=== PATIENT | female | born 1955 | race Caucasian/White ===

== ENCOUNTER → 2019-12-26 09:30 | Outpatient (CLI) | payer BC, SELFPAY ==
--- NOTE | ~2019-12-26 | CT_ITS ---
EXAMINATION: CT lung screening EXAM DATE: 12/26/2019 09:47 INDICATION: Personal history of nicotine dependence. TECHNIQUE: Spiral low dose CT of the chest without contrast. Axial, coronal and sagittal images were reviewed. The dose-length product (DLP) for this examination was 88.45 mGy-cm. The exposure was ta ilored according to patient size (auto mA exposure control), and iterative reconstruction (ASIR) was used as additional dose reduction technique. There is no prior study for comparison. FINDINGS: Several right middle lobe nodules up to 4 mm. There is biapical scarring. There is mild em physema and moderate hyperinflation. Tracheobronchial tree is patent. There is no mediastinal, hil ar or axillary lymphadenopathy. There are no pleural or pericardial effusions. There is no pneumo thorax. Heart normal in size. No evidence of coronary arterial calcification. Upper abdomen is un remarkable. There is mild thoracic spondylosis without osteoblastic or osteolytic lesions identifie d. IMPRESSION: Lung-RADS category 2, benign appearance or behavior (<1% chance of malignancy); recommend continued LDCT screening in 1 year. Reviewed, dictated and finalized at location B. IO PRODUCER
== END ==
PROVIDERS: PCP Emergency Medicine; Visit Provider Emergency Medicine
DX: Z12.2 Encounter for screening for malignant neoplasm of respiratory organs (principal); Z87.891 Personal history of nicotine dependence
CPT/HCPCS: G0297

== ENCOUNTER → 2020-10-19 10:22 | Outpatient (CLI) | payer BC, SELFPAY ==
--- NOTE | ~2020-10-19 | MM_ITS ---
EXAMINATION: MM screening lucas BI w sharon HISTORY: Screening mammogram TECHNIQUE: Craniocaudal and mediolateral oblique 3-D tomosynthesis images were obtained and synthetic 2-D images were generated. CAD analysis was submitted and interpreted. COMPARISON: 10/17/2019, 10/04/2018, 07/13/2017 bilateral digital screening mammogram examinations BREAST PARENCHYMAL COMPOSITION: The breasts are heterogeneously dense, which may obscure small masses . FINDINGS: There is a biopsy marker on the right; history of prior benign right breast biopsy. Status post left partial mastectomy and radiation treatment for breast cancer in 2012. There is stabl e postoperative scarring and retraction of the left breast. There is no evidence of interval suspicious mass, calcification, or new architectural distortion to s uggest malignancy in either breast. There has been no suspicious interval change. IMPRESSION: 1. No mammographic evidence of malignancy. 2. Recommend routine screening mammography in one year. BI-RADS Category 2: Benign finding(s). Reviewed, dictated and finalized at location A. ANALYST
== END ==
PROVIDERS: PCP Emergency Medicine; Visit Provider Obstetrics & Gynecology
DX: Z12.31 Encounter for screening mammogram for malignant neoplasm of breast (principal)
CPT/HCPCS: 77063; 77067

== ENCOUNTER → 2020-12-21 10:48 | Outpatient (CLI) | payer BC, SELFPAY ==
--- NOTE | ~2020-12-21 | CT_ITS ---
EXAMINATION:CT lung screening DATE: 12/21/2020 11:09 INDICATION: Personal history of tobacco dependence. Smoker who quit 11 years ago with 30 pack year hi story. TECHNIQUE: Computed tomography (CT) of the chest was performed without intravenous contrast. Automate d exposure control and iterative reconstruction technique were employed. The dose-length product (DLP ) was 73.72 mGy-cm. COMPARISON: Chest CT 12/26/2019 FINDINGS: There is mild scarring at the lung apices. There is a 3 mm nodule in left lower lobe. There is a 4 mm nodule in right upper lobe without change. There is a 4 mm nodule in right middle lobe wit hout change. No pleural effusion. The heart size is normal. No pericardial effusion. There is severe thoracic spondylosis. IMPRESSION: 1. Lung-RADS category 2: Benign appearance or behavior. Continue annual screening with noncontrast lo w-dose chest CT in 12 months. Reviewed, dictated and finalized at location A. BURNER IMPRESSION: 1. Lung-RADS category 2: Benign appearance or behavior. Continue annual screeni ng with noncontrast low-dose chest CT in 12 months.
== END ==
PROVIDERS: PCP Emergency Medicine; Visit Provider Emergency Medicine
DX: Z12.2 Encounter for screening for malignant neoplasm of respiratory organs (principal); Z87.891 Personal history of nicotine dependence
CPT/HCPCS: 71271

== ENCOUNTER 2021-01-03 08:44 | Outpatient (CLI) | payer BC, SELFPAY | END 2021-01-03 08:45 | disposition home or self-care (01) | LOC: ANHCOVIDVC 08:44 | PROVIDERS: PCP Emergency Medicine | DX: Z23 Encounter for immunization (principal) | CPT/HCPCS: 0001A; 91300 ==

== ENCOUNTER 2021-01-07 12:57 | Outpatient (CLI) | payer BC, SELFPAY | END 2021-01-07 12:58 | disposition home or self-care (01) | PROVIDERS: PCP Emergency Medicine; Visit Provider Emergency Medicine | DX: R30.0 Dysuria (principal) | CPT/HCPCS: 87077; 87086; 87088 ==

== ENCOUNTER 2021-01-24 08:46 | Outpatient (CLI) | payer BC, SELFPAY | END 2021-01-24 08:47 | disposition home or self-care (01) | LOC: ANHCOVIDVC 08:46 | PROVIDERS: PCP Emergency Medicine | DX: Z23 Encounter for immunization (principal) | CPT/HCPCS: 0002A; 91300 ==

== ENCOUNTER 2021-03-23 08:43 | Outpatient (CLI) | payer BC, SELFPAY ==
--- NOTE | ~2021-03-23 | XR_ITS ---
EXAMINATION: XR barium swallow modified DATE: 03/23/2021 09:29 INDICATION: Dysphagia, proximal throat tightness TECHNIQUE: Modified barium esophagram was performed by myself to administered fluoroscopy, in conjun ction with speech pathologist who administered barium in varying consistencies as per speech patholog ist documentation. This was recorded on tape. A single fluoroscopic spot image was recorded. The DAP for this procedure was 1.4 Gycm2. Fluoroscopy exposure time was 2.1 minutes. FINDINGS: Oral stage: Adequate function. Pharyngeal phase: Adequate function. Laryngeal penetration: Present. Aspiration: None. Laryngeal sensitivity: Present. IMPRESSION: Mild laryngeal penetration without aspiration observed. Please refer to speech pathologis t findings and specific feeding recommendations. Reviewed, dictated and finalized at location A. IMPRESSION: Mild laryngeal penetration without aspiration observed. Please refe r to speech pathologist findings and specific feeding recommendations.
--- NOTE | 2021-03-23 09:41 | STOPEVAL ---
MODIFIED BARIUM SWALLOW EVALUATION: Thank you for referring Araseli Correa to [facility].? Attending Provider: Roman Dempsey MD Outpatient Past Medical History Past Medical History Source of Past Medical History Patient Neurological History Hx Neurological Disorders No Significant History Cardiovascular History Hx Cardiac Disorders No Significant History Respiratory History Hx Respiratory Disorders No Significant History Gastrointestinal History Hx Gastrointestinal Disorders No Significant History Genitourinary History Hx Genitourinary Disorders No Significant History Musculoskeletal History Hx Musculoskeletal Disorders No Significant History Hematological History Hx Hematological Disorders No Significant History Endocrine History Hx Endocrine Disorders No Significant History HEENT History Hx HEENT Disorders No Significant History Integumentary History Hx Skin Disorders No Significant History Other History Hx Cancer Yes: breast Prior Level of Function Prior Swallow Level Prior Intake Method Oral Prior Diet Regular (Level 7 Diet) Prior Liquid Consistency Thin (Level 0 Diet) Modified Barium Swallow Evaluation Recent Swallowing History Reports Dysphagia Yes: throat feels restricted during swallowing Onset of Dysphagia few months ago History of Dysphagia No Other Factors Impacting Dysphagia None History of Pneumonia No Reported Difficult Consistencies Unable to Identify Intake Method Prior to Swallow Oral Evaluation Diet Prior to Swallow Evaluation Regular, Level 7 Liquid Consistency Prior to Swallow Thin (0) Evaluation Consistency Solid Consistency Method of Presentation Spoon Oral Preparatory Symptoms None Oral Phase Symptoms None Pharyngeal Phase Symptoms None Severity of Vallecular Residue None - 0% No Residue Severity of Pyriform Sinus Residue None - 0% No Residue 8 Point Laryngeal Penetration-Aspiration Material Does Not Enter Airway Scale Cervical/Esophageal Symptoms None Mixed Consistency Method of Presentation Spoon Oral Preparatory Symptoms None Oral Phase Symptoms None Pharyngeal Phase Symptoms None Severity of Vallecular Residue None - 0% No Residue Severity of Pyriform Sinus Residue None - 0% No Residue 8 Point Laryngeal Penetration-Aspiration Material Does Not Enter Airway Scale Cervical/Esophageal Symptoms None Pureed Consistency Method of Presentation Spoon Oral Preparatory Symptoms None Oral Phase Symptoms None Pharyngeal Phase Symptoms None Severity of Vallecular Residue None - 0% No Residue Severity of Pyriform Sinus Residue None - 0% No Residue 8 Point Laryn
== END 2021-03-23 08:44 | disposition home or self-care (01) ==
PROVIDERS: PCP Emergency Medicine; Visit Provider Emergency Medicine
DX: R13.10 Dysphagia, unspecified (principal)
CPT/HCPCS: 92611

== ENCOUNTER → 2021-03-24 10:46 | Outpatient (CLI) | payer BC, SELFPAY ==
--- NOTE | ~2021-03-24 | US_ITS ---
EXAMINATION: US thyroid DATE: 03/24/2021 11:01 INDICATION: Nontoxic goiter. TECHNIQUE: Multiple ultrasound images of the thyroid were obtained. COMPARISON: None. FINDINGS: The right thyroid lobe measures 5.1 x 2.0 x 1.7 cm. The left thyroid lobe measures 5.2 x 1.6 x 1.8 c m. No discrete nodules identified. There is normal echotexture and echogenicity throughout the thyro id gland with diffuse increased vascular flow throughout the thyroid on color Doppler. IMPRESSION: 1. Nonspecific diffuse increased vascular flow throughout the otherwise normal-appearing thyroid with no discrete thyroid nodules. Correlate clinically for thyroiditis Reviewed, dictated and finalized at location A. IMPRESSION: 1. Nonspecific diffuse increased vascular flow throughout the otherwise normal- appearing thyroid with no discrete thyroid nodules. Correlate clinically for th yroiditis
== END ==
PROVIDERS: PCP Emergency Medicine; Visit Provider Emergency Medicine
DX: E04.9 Nontoxic goiter, unspecified (principal)
CPT/HCPCS: 76536

== ENCOUNTER 2021-05-19 10:33 | Outpatient (CLI) | payer BC, SELFPAY ==
[2021-05-19 11:49] LABS: Free T4 Free Thyroxine 1.06 ng/mL (0.78-2.19)
[2021-05-19 11:56] LABS: Total Triiodothyronine (T3) 0.96 NG/ML (0.97-1.69)
[2021-05-22 04:15] LABS: Thyroid Peroxidase Antibodies <1 IU/mL (<9)
[2021-05-22 20:16] LABS: Thyrotropin Receptor Antibody <1.00 IU/L (<=2.00)
== END 2021-05-19 10:34 | disposition home or self-care (01) ==
LOC: ANHLAB 10:35
PROVIDERS: PCP Emergency Medicine; Visit Provider Internal Medicine Endocrinology, Diabetes & Metabolism
DX: E04.9 Nontoxic goiter, unspecified (principal)
CPT/HCPCS: 36415; 83519; 84439; 84443; 84480; 86376

== ENCOUNTER → 2021-10-31 10:15 | Outpatient (CLI) | payer BC, SELFPAY ==
--- NOTE | ~2021-10-31 | MM_ITS ---
EXAMINATION: MM screening lucas BI w sharon HISTORY: Screening mammogram, family history of breast cancer in her sister. TECHNIQUE: Craniocaudal and mediolateral oblique 3-D tomosynthesis images were obtained and synthetic 2-D images were generated. CAD analysis was submitted and interpreted. COMPARISON: 10/19/2020, 10/17/2019, 10/04/2018 BREAST PARENCHYMAL COMPOSITION: The breasts are heterogeneously dense, which may obscure small masses . FINDINGS: Stable surgical changes are noted in the left breast. There is no evidence of suspicious ma ss, calcification, or architectural distortion to suggest malignancy in either breast. There has been no suspicious interval change. IMPRESSION: 1. No mammographic evidence of malignancy. 2. Recommend routine screening mammography in one year. BI-RADS Category 2: Benign finding(s). Reviewed, dictated and finalized at location A. INAL RECORDS TECHNICIAN
== END ==
PROVIDERS: Visit Provider Internal Medicine
DX: Z12.31 Encounter for screening mammogram for malignant neoplasm of breast (principal)
CPT/HCPCS: 77063; 77067

== ENCOUNTER 2022-07-07 11:46 | Outpatient (CLI) | payer MEDICARE, SELFPAY | END 2022-07-07 11:47 | disposition home or self-care (01) | PROVIDERS: PCP Emergency Medicine; Visit Provider Emergency Medicine | DX: R30.0 Dysuria (principal) | CPT/HCPCS: 87086; 87088; 87147 ==

== ENCOUNTER 2022-10-14 19:10 | Emergency (ER) | payer MEDICARE, SELFPAY ==
[2022-10-14 19:19] VITALS: BP 145/97; PULSE 161; RESP 20; TEMP 36.6; O2SAT 98
[2022-10-14 19:21] VITALS: BP 145/97; PULSE 161; RESP 20; TEMP 36.6; O2SAT 98
[2022-10-14 19:40] VITALS: PULSE 100; RESP 20; O2SAT 97
--- NOTE | 2022-10-14 19:47 | ED.FEMALEGU ---
HPI - Female Genitourinary General Chief complaint: Urogenital-Female Stated complaint: Possible UTI Time Seen by Provider: 10/14/22 19:47 Source: patient and RN notes reviewed Mode of arrival: ambulatory Limitations: no limitations History of Present Illness HPI Narrative: 67-year-old female presented for complaint of burning with urination, cloudy urine, and occasional odor. She endorses about 5 days ago she noticed blood in the urine which has resolved. Reports temp 102 today. States today she felt fatigued, and admits this evening prior to arrival she felt a flutter in her chest. She denies chest pain, shortness of breath, dizziness, or nausea at this time. She denies abdominal pain, flank pain, nausea, vomiting, diarrhea, fevers or chills. Related Data Home Medications Medication Instructions Recorded Confirmed calcitonin (salmon) 200 unit/mL 100 unit subcut DAILY 06/23/22 10/14/22 injection solution upadacitinib 15 mg tablet,extended 15 mg PO DAILY 06/23/22 10/14/22 release 24 hr (Rinvoq) Allergies Allergy/AdvReac Type Severity Reaction Status Date / Time clindamycin AdvReac Mild GI upset Verified 10/14/22 19:21 Review of Systems Review of Systems: CONSTITUTIONAL: Denies body aches, fever, chills, or sweats. CARDIOVASCULAR: Denies chest pain, or edema. RESPIRATORY: Denies cough or dyspnea. GASTROINTESTINAL: Denies abdominal pain, nausea, vomiting, or diarrhea. GENITOURINARY: Reports dysuria, Deniesfrequency, urgency, hematuria, flank pain SKIN: Denies rash, itching, or wounds. MUSCULOSKELETAL: Denies back pain or myalgia. [facility] Past Medical History Medical History Cancer COPD (chronic obstructive pulmonary disease) Monoclonal gammopathies Osteoporosis Rheumatoid arthritis Family History Family History Mother Family history of heart disease in male family member before age 55, Onset Age: 79 Patient's mother is Father Family history of heart disease in male family member before age 55, Onset Age: 81 Patient's father is Sibling Family history of lung cancer Other Alcoholism Anxiety Depression Diabetes mellitus Hypertension Social History Social History Smoking status: Former smoker Second hand tobacco smoke exposure: No Alcohol intake: current Substance use: never Substance use type: does not use Gender identity (if verbalized by the patient): Female Spiritual care concerns: No Agree to blood products: Yes Comments At time of signature, I have reviewed and agree with nursing past medical, surgical, social and family history unless otherwise noted. Please see nursing chart for further information. There is no relevant family history pertinent to the presenting complaint Exam Narrative: GENERAL: Well-appearing ENT: Mucous membranes pink and moist. NECK: Normal AROM. Supple. CHEST: Clear to auscultation. HEART: Tachycardic and irregular ABDOMEN: Soft, nontender, nondistended, normal active bowel sounds. No CVA tenderness SKIN: Warm, dry, no rash. NEURO: Alert and oriented x3. Gait steady. PSYCH: Normal affect. Talkative Course Course Emergency Course: Patient is aware of diagnosis, understands and agrees to treatment plan. Anticipatory guidance given. Portions of this record may have been created with voice recognition software Level of Care: Express Care Visit Vital Signs Vital signs: Vital Signs Temperature 97.8 F 10/14/22 19:19 Pulse Rate 161 H 10/14/22 19:19 Respiratory Rate 20 10/14/22 19:19 Blood Pressure 145/97 H 10/14/22 19:19 Pulse Oximetry 98 10/14/22 19:19 Oxygen Delivery Room Air 10/14/22 19:19 Temperature 97.8 F 10/14/22 19:21 Pulse Rate 155 H 10/14/22 20:09 Respiratory Rate 20
--- NOTE | 2022-10-14 19:54 | ECG_ITS ---
Measurements Intervals [place] Rate: 155 P: SC: 0 QRS: 1 QRSD: 92 T: 75 QT: 268 QTc: 431 Interpretive Statements ATRIAL FIBRILLATION WITH RAPID VENTRICULAR RESPONSE NONSPECIFIC ST & T-WAVE ABNORMALITY, CONSIDER LATERAL ISCHEMIA ABNORMAL RHYTHM ECG NO PREVIOUS ECG AVAILABLE FOR COMPARISON Electronically Signed On 10-14-2022 21:19:38 MARKET RISK ANALYST by Fernanda Mijares M.D.
[2022-10-14 20:09] VITALS: PULSE 155
== END 2022-10-14 20:08 | disposition short-term general hospital (02) ==
PROVIDERS: Emergency Provider Nurse Practitioner Family; PCP Emergency Medicine
DX: I48.91 Unspecified atrial fibrillation (principal); Z87.891 Personal history of nicotine dependence; J44.9 Chronic obstructive pulmonary disease, unspecified; M06.9 Rheumatoid arthritis, unspecified; M81.0 Age-related osteoporosis without current pathological fracture; Z85.3 Personal history of malignant neoplasm of breast
CPT/HCPCS: 81003; 87077; 87086; 87186; 93005; 99215; G0463

== ENCOUNTER 2022-10-14 20:38 | Emergency (ER) | payer MEDICARE, SELFPAY ==
--- NOTE | ~2022-10-14 | XR_ITS ---
EXAMINATION: XR chest 2V DATE: 10/14/2022 21:23 INDICATION: COPD presenting with palpitations. TECHNIQUE: PA and lateral views of the chest were obtained. COMPARISON: Chest CT dated 12/21/2020 FINDINGS: The lungs are clear with no focal airspace opacities, pulmonary edema, pleural effusion or pneumothor ax. The cardiomediastinal silhouette is normal. Tiny ringlike right breast biopsy marker. Moderate th oracic spondylosis. IMPRESSION: 1. No acute cardiopulmonary disease. Reviewed, dictated and finalized at location A. PAPER DISTRIBUTOR SUPERVISOR
--- NOTE | 2022-10-14 20:39 | ECG_ITS ---
Measurements Intervals [place] Rate: 169 P: [place]: 0 QRS: 8 QRSD: 89 T: 61 QT: 255 QTc: 427 Interpretive Statements ATRIAL FIBRILLATION WITH RAPID VENTRICULAR RESPONSE NONSPECIFIC ST & T-WAVE ABNORMALITY, CRITICAL TEST RESULT COMPARED TO ECG 10/14/2022 20:01:23 NO SIGNIFICANT CHANGES Electronically Signed On 10-14-2022 21:20:00 CHILD CARE COOK by Fernanda Mijares M.D.
[2022-10-14 20:40] VITALS: BP 158/80; PULSE 158; RESP 20; TEMP 36.6; O2SAT 100
[2022-10-14] MEDS: dilTIAZem HCl INJ 25 MG/5 ML VIAL 15 MG IV PUSH (20:45)
[2022-10-14 20:57] LABS: Basophils Percent Auto 0.3 % (0.2-1.2); Eosinophils Percent Auto 0.5 % (0-4.4); Hematocrit 39.4 % (37.0-47.0); Hemoglobin 13.6 g/dL (12.0-15.0); Immature Granulocyte Absolute 0.04 K/mm3 (0.00-0.031); Immature Granulocyte Percent A 0.5 % (0-0.5); Lymphocytes Absolute Auto 1.31 K/mm3 (0.9-3.2); Lymphocytes Percent Auto 16.5 % (18.3-44.2); Mean Corpuscular HGB Conc 34.5 g/dl (32-36); Mean Corpuscular Hemoglobin 33.9 pg (26-34); Mean Corpuscular Volume 98.3 fl (80-100); Monocytes Absolute Auto 0.8 K/mm3 (0.1-0.6); Monocytes Percent Auto 10.3 % (2.6-8.5); Neutrophils Absolute Auto 5.7 K/mm3 (1.3-6.7); Neutrophils Percent Auto 71.9 % (45.5-73.1); Platelet Count Result 271 k/mm3 (150-375); Red Blood Count 4.01 M/mm3 (4.2-5.4); Red Cell Distribution Width 11.9 % (11.5-14.5)
[2022-10-14] MEDS: dilTIAZem HCl INJ 25 MG/5 ML VIAL 10 MG IV PUSH (20:58)
[2022-10-14 21:07] LABS: Prothrombin Time 12.8 Seconds (11.1-14.7)
[2022-10-14 21:08] LABS: Partial Thromboplastin Time 26.9 SECONDS (22.3-36.8)
[2022-10-14 21:11] LABS: Alanine Aminotransferase 20 U/L (6-35); Albumin Level 4.5 g/dL (3.5-5.1); Alkaline Phosphatase 65 U/L (38-126); Anion Gap 8 mmol/L (8-16); Aspartate Amino Transferase 29 U/L (14-36); Bilirubin,Total 0.6 mg/dL (0.2-1.3); Blood Urea Nitrogen 10 mg/dL (7-17); Carbon Dioxide 27 mmol/L (22-30); Chloride 98 mmol/L (98-107); Estimated CRCL calculation 65 ml/min; Estimated Glomerular Filt Rate > 60; Glucose 127 mg/dL (65-110); Potassium 3.9 mmol/L (3.4-5.0); Sodium 133 mmol/L (137-145)
[2022-10-14 21:19] LABS: NT Pro B Type Natriuretic Pept 287 pg/mL (5-100)
[2022-10-14 21:27] LABS: Troponin I < 0.012 ng/mL (0.000-0.034)
--- NOTE | 2022-10-14 21:52 | ECG_ITS ---
Measurements Intervals [place] Rate: 75 P: 38 CT: 162 QRS: -2 QRSD: 94 T: 46 QT: 367 QTc: 411 Interpretive Statements SINUS RHYTHM COMPARED TO ECG 10/14/2022 20:42:33 SINUS RHYTHM NOW PRESENT Electronically Signed On 10-15-2022 14:43:01 COMMERCIAL ACCOUNT MANAGER by Fernanda Mijares M.D.
--- NOTE | 2022-10-14 21:52 | ED.ARRPALP ---
HPI - Arrhythmia/Palpitations General Chief Complaint: Arrhythmia/Palpitations Stated Complaint: @ for uti, found to be in afib rvr 140-180 Time Seen by Provider: 10/14/22 20:41 History of Present Illness HPI narrative: Patient is a 67-year-old female who presents ER with a rapid heart rate. She went to an urgent care this evening due to the fact that she is having urinary tract symptoms. While she was there is found that she is in atrial fibrillation with RVR. Patient does feel like her heart is slightly faster. No chest pain or shortness of breath. No exertional fatigue. No history of A. fib in the past. She reports she did have a fever earlier but that has since broken. She took antipyretics at home. Related Data Home Medications Medication Instructions Recorded Confirmed calcitonin (salmon) 200 unit/mL 100 unit subcut DAILY 06/23/22 10/14/22 injection solution upadacitinib 15 mg tablet,extended 15 mg PO DAILY 06/23/22 10/14/22 release 24 hr (Rinvoq) Allergies Allergy/AdvReac Type Severity Reaction Status Date / Time clindamycin AdvReac Mild GI upset Verified 10/14/22 19:21 Review of Systems Review of Systems: All systems reviewed & are unremarkable except as noted in HPI and below Constitutional: Constitutional: Denies chills, Denies fatigue and Reports fever(s) ENT: Denies nasal congestion and Denies sore throat Cardiovascular: Cardiovascular: Denies chest pain, Reports rapid heart rate and Denies radiating jaw, neck or arm pain Respiratory: Respiratory: Denies cough and Denies dyspnea Gastrointestinal: Gastrointestinal: Denies abdominal pain, Denies nausea and Denies vomiting Genitourinary: Genitourinary: Reports nocturia, Reports dysuria and Denies flank pain [facility] Past Medical History Medical History Cancer COPD (chronic obstructive pulmonary disease) Monoclonal gammopathies Osteoporosis Rheumatoid arthritis Family History Family History Mother Family history of heart disease in male family member before age 55, Onset Age: 79 Patient's mother is Father Family history of heart disease in male family member before age 55, Onset Age: 81 Patient's father is Sibling Family history of lung cancer Other Alcoholism Anxiety Depression Diabetes mellitus Hypertension Social History Social History Smoking status: Former smoker Second hand tobacco smoke exposure: No Alcohol intake: current Substance use: never Substance use type: does not use Gender identity (if verbalized by the patient): Female Spiritual care concerns: No Agree to blood products: Yes Exam Narrative: GENERAL: Well-appearing, well-nourished, and in no acute distress. HEAD: Normocephalic, atraumatic. EYES: PERRL and EOMI. ENT: Mucous membranes moist. CHEST: Clear to auscultation. No respiratory distress. HEART: Irregular regular rate and rhythm that is tachycardic. Normal peripheral pulses. ABDOMEN: Soft, nontender, nondistended. EXTREMITIES: Normal range of motion. No edema. SKIN: Warm, dry, no rash. NEURO: Alert and oriented x3. PSYCH: Normal mood and affect. Course Course Emergency Course: Patient resting comfortably. Received 25 mg of diltiazem and converted from A. fib RVR to normal sinus rhythm. Discussed case with Dr. Mijares who would recommend the patient receive a blood thinner as well as metoprolol 25 mg daily. She would like patient received Xarelto 20 mg daily. Patient will be given a one-time dose of Lovenox here. Vital Signs Vital signs: Vital Signs Temperature 98 F 10/14/22 20:40 Pulse Rate 158 H 10/14/22 20:40 Respiratory Rate 20 10/14/22 20:40 Blood Pressure 158/80 H 10/14/22 20:40 Pulse Oximetry 100 10/14/22 20:40 Oxygen Delivery Amarilis
[2022-10-14 21:55] LABS: Influenza A QL RT-PCR Negative (Negative); Influenza B QL RT-PCR Negative (Negative); SARS-CoV-2 RNA PCR Negative
[2022-10-14 21:56] VITALS: BP 119/85; PULSE 80; RESP 20; O2SAT 97
[2022-10-14] MEDS: ENOXAPARIN 80 MG/0.8 ML SYRINGE 68 MG SUB-Q (22:23)
== END 2022-10-15 00:02 | disposition home or self-care (01) ==
PROVIDERS: Emergency Provider Emergency Medicine; PCP Emergency Medicine
DX: I48.91 Unspecified atrial fibrillation (principal); Z20.822 Contact with and (suspected) exposure to COVID-19; J44.9 Chronic obstructive pulmonary disease, unspecified; M81.0 Age-related osteoporosis without current pathological fracture; M06.9 Rheumatoid arthritis, unspecified; Z87.891 Personal history of nicotine dependence
CPT/HCPCS: 36415; 71046; 80053; 81003; 83880; 84484; 85025; 85610; 85730; 87077; 87086; 87186; 87636; 93005; 96372; 96374; 99215; 99284; G0463; J1650

== ENCOUNTER 2022-10-27 09:33 | Outpatient (CLI) | payer MEDICARE, SELFPAY ==
[2022-10-27 10:11] LABS: Alanine Aminotransferase 45 U/L (6-35); Albumin Level 4.3 g/dL (3.5-5.1); Alkaline Phosphatase 50 U/L (38-126); Anion Gap 5 mmol/L (8-16); Aspartate Amino Transferase 43 U/L (14-36); Bilirubin,Total 0.5 mg/dL (0.2-1.3); Blood Urea Nitrogen 10 mg/dL (7-17); Calcium 9.6 mg/dL (8.4-10.2); Carbon Dioxide 31 mmol/L (22-30); Chloride 100 mmol/L (98-107); Cholesterol 223 mg/dL (0-200); Estimated Glomerular Filt Rate > 60; Glucose 94 mg/dL (65-110); HDL Direct 87 mg/dL; Potassium 4.1 mmol/L (3.4-5.0); Sodium 136 mmol/L (137-145); Triglycerides 53 mg/dL (<150)
[2022-10-27 10:22] LABS: LDL Cholesterol Direct 93 mg/dL
== END 2022-10-27 09:34 | disposition home or self-care (01) ==
PROVIDERS: PCP Emergency Medicine; Referring Provider Specialist; Visit Provider Emergency Medicine
DX: E04.9 Nontoxic goiter, unspecified (principal); Z13.6 Encounter for screening for cardiovascular disorders
CPT/HCPCS: 36415; 80053; 80061; 84443

== ENCOUNTER → 2022-12-06 10:57 | Outpatient (CLI) | payer MEDICARE, SELFPAY ==
--- NOTE | ~2022-12-06 | CT_ITS ---
EXAMINATION: CT lung screening DATE: 12/06/2022 11:41 INDICATION: Personal history of nicotine dependence, prior smoker with 30 pack year history TECHNIQUE: Computed tomography (CT) of the chest was performed without intravenous contrast. The dose -length product (DLP) was 69.94 mGy-cm. Automated exposure control and iterative reconstruction techn [employer] were employed. COMPARISON: 12/21/2020 FINDINGS: There is mild emphysema. There is a new 9 mm nodule abutting the major fissure in the right upper lobe on image 54. There is a stable 4 mm pleural-based nodule in the right middle lobe. There is a stable 4 mm nodule of the right upper lobe. There is a stable 3 mm nodule of the left lower lobe . The lungs are free of acute opacities. No pleural effusion or pneumothorax. No pathologically enlar ged thoracic lymph nodes are identified. The heart size is normal. There is severe thoracic spondylos is. IMPRESSION: 1. Lung-RADS category 4A: Suspicious. Low-dose CT in three months is recommended. PET/CT may be consi dered. Reviewed, dictated and finalized at location B. CAL PHYSICS RESEARCHER IMPRESSION: 1. Lung-RADS category 4A: Suspicious. Low-dose CT in three months is recommende d. PET/CT may be considered.
== END ==
PROVIDERS: PCP Emergency Medicine; Visit Provider Emergency Medicine
DX: Z12.2 Encounter for screening for malignant neoplasm of respiratory organs (principal); Z87.891 Personal history of nicotine dependence; R91.8 Other nonspecific abnormal finding of lung field
CPT/HCPCS: 71271

== ENCOUNTER → 2022-12-06 11:00 | Outpatient (CLI) | payer MEDICARE, SELFPAY ==
--- NOTE | ~2022-12-06 | DEXA_ITS ---
Bone Density Report Name: ANGELA SOMMER Age: 67 Sex: Female Ethnicity: White Date of : 1955 Indication: postmenopausal osteoporosis; monitoring treatment; parental hip fracture; height loss; rheumatoid arthritis; Referring Provider: SKYLAR SOTO Study: Bone densitometry was performed. Exam Date: December 06, 2022 Accession number: [id number] Bone Density: Region BMD T-score Z-score Classification AP Spine (L1-L4) 0.840 -1.9 -0.1 Osteopenia Femoral Neck (Left) 0.600 -2.2 -0.7 Osteopenia Total Hip (Left) 0.671 -2.2 -1.0 Osteopenia Femoral Neck (Right) 0.548 -2.7 -1.2 Osteoporosis Total Hip (Right) 0.598 -2.8 -1.6 Osteoporosis Total Hip Mean 0.635 -2.5 -1.3 Osteoporosis World Health Organization criteria for BMD impression classify patients as: Normal (T-score at or above -1.0), Osteopenia (T-score between -1.0 and -2.5), or Osteoporosis (T-score at or below -2.5). 10-year Fracture Risk: FRAX not reported because: Some T-score for Spine Total or Hip Total or Femoral Neck at or below -2.5 Treated for osteoporosis Previous Exams: Region Exam Age BMD T-score BMD Change BMD Change Date g/cm2 vs Baseline vs Previous AP Spine(L1-L4) 12/06/2022 67 0.840 -1.9 -0.057* -0.047* 10/17/2019 64 0.887 -1.5 -0.010 0.063* 07/13/2017 62 0.824 -2.0 -0.073* 0.023* 07/02/2015 60 0.801 -2.2 -0.096* -0.050* 10/05/2010 55 0.851 -1.8 -0.046* -0.046* 07/23/2007 52 0.897 -1.4 Total Hip(Left) 12/06/2022 67 0.671 -2.2 -0.053* -0.024 10/17/2019 64 0.695 -2.0 -0.030* 0.050* 07/13/2017 62 0.645 -2.4 -0.080* -0.017 07/02/2015 60 0.662 -2.3 -0.062* -0.040* 10/05/2010 55 0.702 -2.0 -0.023 -0.023 07/23/2007 52 0.725 -1.8 Total Hip(Right) 12/06/2022 67 0.598 -2.8 -0.066* -0.033* 10/17/2019 64 0.630 -2.6 -0.034* 0.034* 07/13/2017 62 0.596 -2.8 -0.068* 0.001 07/02/2015 60 0.595 -2.8 -0.069* -0.036* 10/05/2010 55 0.631 -2.6 -0.033* -0.033* 07/23/2007 52 0.664 -2.3 *Denotes significance at 95% confidence level, LSC for AP Spine = 0.022 g/cm2, LSC for Total Hip = 0.027 g/cm2 Clinical Information Provided by Patient: Parent has had a hip fracture Has rheumatoid arthritis Is being treated for osteoporosis
--- NOTE | ~2022-12-06 | MM_ITS ---
EXAMINATION: MM screening lucas BI w sharon HISTORY: Screening mammogram TECHNIQUE: Craniocaudal and mediolateral oblique 3-D tomosynthesis images were obtained and synthetic 2-D images were generated. CAD analysis was submitted and interpreted. COMPARISON: 10/31/2021, 10/19/2020, 10/17/2019 bilateral screening mammogram examinations BREAST PARENCHYMAL COMPOSITION: The breasts are heterogeneously dense, which may obscure small masses . FINDINGS: Biopsy marker on the right; history of prior benign right breast biopsy. There is stable postoperative change on the left from partial mastectomy for breast cancer. There is no evidence of interval suspicious mass, calcification, or new architectural distortion to suggest ma lignancy in either breast. There has been no suspicious interval change. IMPRESSION: 1. Status post left partial mastectomy for breast cancer. No mammographic evidence of malignancy. 2. Recommend routine screening mammography in one year. BI-RADS Category 2: Benign finding(s). Reviewed, dictated and finalized at location A. TUFTER IMPRESSION: 1. Status post left partial mastectomy for breast cancer. No mammographic evide nce of malignancy. 2. Recommend routine screening mammography in one year. BI-RADS Category 2: Benign finding(s).
== END ==
PROVIDERS: PCP Emergency Medicine; Visit Provider Obstetrics & Gynecology
DX: Z12.31 Encounter for screening mammogram for malignant neoplasm of breast (principal); M81.0 Age-related osteoporosis without current pathological fracture; Z85.3 Personal history of malignant neoplasm of breast; M85.89 Other specified disorders of bone density and structure, multiple sites
CPT/HCPCS: 77063; 77067; 77080

== ENCOUNTER 2023-03-01 00:06 | Day surgery (SDC) | payer MEDICARE, SELFPAY ==
[2023-02-28 12:49] VITALS: BMI 24.3
--- NOTE | 2023-03-01 09:19 | WPDHPUPDATE1 ---
History and Physical Update Update Date/Time: 03/01/23 09:19 History and Physical has been reviewed, including an updated exam of the patient. There are NO changes in the patient's condition. Risks, benefits, and alternatives have been discussed and questions answered. Patient agrees to proceed with procedure.
--- NOTE | 2023-03-01 09:19 | PM.OP ---
Procedure Note - Brief Procedure Note - Brief Date of procedure: 03/01/23 paroxysmal atrial fibrillation Post-op diagnosis: Same Procedure performed: loop recorder implantation Surgeon: Deven Mclean MD Findings: loop recorder implantation. Description of procedure: Brief History of Present Illness: Patient is a After verbal and written informed consent was obtained from the patient risks, benefits, and alternatives explained in detail the patient agreed to proceed with the plan of care as outlined above. Patient was evaluated at bedside in the [facility]. Patient was placed the appropriate supine position. Left anterior chest wall was prepped and draped in the usual sterile fashion. Operators in appropriate sterile garb. The left 4th intercostal space was identified and marked. Utilizing approximately 40 cc of 1% subcutaneous lidocaine the left anterior chest wall was then locally anesthetized. After local anesthesia was achieved, 2 fingerbreadths left of the sternum at the 4th intercostal space was again identified and a 1 cm incision was made with the included skin punch tool. Following this with the included introducer, a tract was made subcutaneously at a 45 degree angle from the sternum. The Biotronik IIIm loop recorder was then advanced subcutaneously into position easily and without complication. The introducer was then removed. Manual pressure was held for least 5-10 min with excellent hemostasis. The device was then interrogated and revealed excellent fidelity and measured at 1.5 mV. The Biotronik IIIm SN [id number] was implanted without complication. The incision was then approximated and closed using Exofin skin adhesive. The incision was then covered with a sterile dressing. Complications: None Conclusion: Successful implantation of Biotronik IIIm SN [id number] implantable loop recorder Implants: Biotronik IIIm loop recorder Complications: No immediate complications Condition: Stable Disposition: Same day
[2023-03-01 09:32] VITALS: BP 135/79; PULSE 58; RESP 12; TEMP 36.9; O2SAT 99
[2023-03-01 09:37] VITALS: BMI 24.4
[2023-03-01 10:23] VITALS: BP 155/84; PULSE 56; RESP 17; O2SAT 98
[2023-03-01 10:25] VITALS: BP 167/86; PULSE 64; RESP 15; O2SAT 98
[2023-03-01 10:30] VITALS: BP 143/79; PULSE 64; RESP 12; O2SAT 98
[2023-03-01 10:35] VITALS: BP 156/87; PULSE 64; RESP 18; O2SAT 97
[2023-03-01 10:45] VITALS: BP 140/82; PULSE 61; RESP 14; O2SAT 95
--- NOTE | 2023-03-01 11:44 | SUR.OPER ---
Patient was discharged after review of instructions. VSS. Patient had no complaints. Questions were answered. She wants to go home to check calendar and then call [facility] for 1 week incision and device check appt.
--- NOTE | 2023-04-09 09:59 | W.PM.PROC2 ---
Procedure Note - Detailed Date of Procedure 03/01/23 Pre-op Diagnosis Paroxysmal atrial fibrillation Post-op Diagnosis Same Procedure Performed loop recorder implantation Surgeon Deven Mclean MD Anesthesia Local Indications paroxysmal atrial fibrillation Findings successful implantation Biotronik loop. Description of Procedure Brief History of Present Illness: Patient is a 67-year-old female followed by Dr. Mijares with a history of paroxysmal atrial fibrillation referred for loop recorder implantation for further management. After verbal and written informed consent was obtained from the patient risks, benefits, and alternatives explained in detail the patient agreed to proceed with the plan of care as outlined above. Patient was evaluated at bedside in the [facility] procedure room. Patient was placed the appropriate supine position. Left anterior chest wall was prepped and draped in the usual sterile fashion. Operators in appropriate sterile garb. The left 4th intercostal space was identified and marked. Utilizing approximately 20 cc of 1% subcutaneous lidocaine the left anterior chest wall was then locally anesthetized. After local anesthesia was achieved, 2 fingerbreadths left of the sternum at the 4th intercostal space was again identified and a 1 cm incision was made with the included skin punch tool. Following this with the included introducer, a tract was made subcutaneously at a 45 degree angle from the sternum. The introducer was then inverted 180 degrees and with the included plunger the Medtronic REVEAL LINQ II loop recorder was advanced subcutaneously into position easily and without complication. The plunger was then removed followed by the introducer. Manual pressure was held for least 5-10 min with excellent hemostasis. The device was then interrogated and revealed excellent fidelity and measured at mV. The Medtronic REVEAL LINQ II SN was implanted without complication. The incision was then approximated and closed using Exofin skin adhesive. The incision was then covered with a sterile dressing. Implants Successful implantation of Biotronik IIIm SN [id number] implantable loop recorder Estimated Blood Loss 1 Complications No immediate complications Condition Stable Disposition Same day
== END 2023-03-01 11:26 | disposition home or self-care (01) ==
PROVIDERS: Internal Medicine Cardiovascular Disease; PCP Emergency Medicine; Visit Provider Internal Medicine Cardiovascular Disease
PROC: (CPT 33285; principal; 2023-03-01 10:00)
DX: I48.0 Paroxysmal atrial fibrillation (principal)
CPT/HCPCS: 33285; C1764

== ENCOUNTER → 2023-03-07 10:27 | Outpatient (CLI) | payer MEDICARE, SELFPAY ==
--- NOTE | ~2023-03-07 | CT_ITS ---
CT Scan of the Chest without Contrast: Clinical Indication: Chest pain, lung nodule Technique: Contiguous sections were acquired throughout the chest without intravenous contrast. Dose reduction technique was used on this scan by utilizing automated exposure control and iterative recon struction technique. The dose-length product (DLP) was 168.25 mGy-cm. COMPARISON: 12/06/2022, 12/21/2020 Findings: There is no evidence of any significant mediastinal, hilar or axillary lymphadenopathy. The mediastin al soft tissues appear normal. There is no evidence of pleural or pericardial effusion. 1 cm right upper lobe pulmonary nodule abutting the fissure is again present, essentially unchanged. Minimal biapical scarring is unchanged. Additional subcentimeter pulmonary nodules are stable from pr ior exam. Images through the upper abdomen reveal no abnormalities. Impression: 1 cm right upper lobe pulmonary nodule abutting the fissure is unchanged. Neoplasm remains a consider ation. Consider endobronchial ultrasound for targeted tissue sampling/biopsy. Percutaneous biopsy wou ld likely be difficult due to position adjacent to the fissure and small size. PET scan and/or additi onal short-term follow-up CT would be additional follow-up considerations. Reviewed, dictated and finalized at [facility]. Impression: 1 cm right upper lobe pulmonary nodule abutting the fissure is unchanged. Neopl asm remains a consideration. Consider endobronchial ultrasound for targeted tis ford sampling/biopsy. Percutaneous biopsy would likely be difficult due to posit ion adjacent to the fissure and small size. PET scan and/or additional short-te rm follow-up CT would be additional follow-up considerations.
== END ==
PROVIDERS: PCP Emergency Medicine; Visit Provider Emergency Medicine
DX: R07.89 Other chest pain (principal); R91.1 Solitary pulmonary nodule
CPT/HCPCS: 71250

== ENCOUNTER 2023-04-16 10:36 | Outpatient (CLI) | payer MEDICARE, SELFPAY ==
[2023-04-16 11:31] LABS: Alanine Aminotransferase 21 U/L (6-35); Albumin Level 4.9 g/dL (3.5-5.1); Alkaline Phosphatase 43 U/L (38-126); Anion Gap 5 mmol/L (8-16); Aspartate Amino Transferase 31 U/L (14-36); Bilirubin,Total 0.8 mg/dL (0.2-1.3); Blood Urea Nitrogen 7 mg/dL (7-17); Calcium 9.6 mg/dL (8.4-10.2); Carbon Dioxide 31 mmol/L (22-30); Chloride 99 mmol/L (98-107); Estimated Glomerular Filt Rate > 60; Glucose 96 mg/dL (65-110); Lactate Dehydrogenase 165 U/L (120-246); Potassium 4.1 mmol/L (3.4-5.0); Sodium 135 mmol/L (137-145)
[2023-04-16 11:39] LABS: Appearance Urine Clear (Clear); Bilirubin Urine Negative (Negative); Blood Urine Negative (Negative); Color Urine Yellow (Yellow); Glucose Urine UA Negative (Negative); Ketones Urine Negative (Negative); Leukocyte Esterase Ur Negative LEU/UL (NEGATIVE); Nitrate Urine Negative (Negative); Protein Urine Negative (Negative); Specific Grav Ur 1.003 (1.001-1.035); Urobilinogen Urine 0.2 mg/dL (<2.0); pH Urine 7.5 (5.0-9.0)
[2023-04-16 11:41] LABS: Add Urine Microscopic? NO
[2023-04-16 11:46] LABS: Immunoglobulin A 91 mg/dL (70-400); Immunoglobulin G 673 mg/dL (700-1600); Immunoglobulin M 289 mg/dL (40-230)
[2023-04-19 13:20] LABS: Kappa\\Lambda Light Chains 1.25 (0.26-1.65); Lambda Light Chain 9.1 mg/L (5.7-26.3)
[2023-04-19 16:10] LABS: Abnormal Protein Band 1 0.3 g/dL; Albumin 4.8 g/dL (3.8-4.8); Alpha 1 Globulin 0.3 g/dL (0.2-0.3); Alpha 2 Globulin 0.6 g/dL (0.5-0.9); Beta 1 Globulin 0.4 g/dL (0.4-0.6); Gamma Globulin 0.8 g/dL (0.8-1.7); Protein, Total 7.1 g/dL (6.1-8.1)
== END 2023-04-16 10:37 | disposition home or self-care (01) ==
PROVIDERS: PCP Emergency Medicine; Referring Provider Internal Medicine; Visit Provider Internal Medicine Rheumatology
DX: Z51.81 Encounter for therapeutic drug level monitoring (principal); C50.312 Malignant neoplasm of lower-inner quadrant of left female breast; Z17.0 Estrogen receptor positive status [ER+]
CPT/HCPCS: 36415; 80053; 80076; 81003; 82784; 83615; 83883; 84155; 84165; 85025; 86334

== ENCOUNTER 2023-05-29 08:58 | Outpatient (CLI) | payer MEDICARE, SELFPAY ==
--- NOTE | ~2023-05-29 | PE_ITS ---
EXAMINATION: PET skull to mid thigh DATE: 05/29/2023 11:07 INDICATION: Solitary pulmonary nodule TECHNIQUE: Blood glucose level was 109 mg/dL. 9.793 mCi of 18-fluorodeoxyglucose (18-FDG) was adminis tered i.v. Low dose computed tomography (CT) images were acquired from the base of the brain to the p roximal thighs for attenuation correction and anatomic localization. Positron emission tomography (PE T) images were acquired in the same distribution beginning 56 minutes after injection. Images includi ng fused PET/CT images were reconstructed in axial, coronal, and sagittal planes. Automated exposure control technique was employed. The dose-length product was 481.20mGy-cm. COMPARISON: Chest CT dated 03/07/2023 FINDINGS: Head/neck: There is symmetric increased activity in the oral cavity, palatine tonsils, parotid glands, submandi bular glands, laryngeal muscles and ocular muscles without CT correlate, likely physiologic. No patho logically enlarged cervical lymphadenopathy or suspicious foci of increased FDG uptake in the visuali zed head or neck. Chest: No interval change in an 11 x 8 mm right upper lobe ynes fissural nodule with minimal FDG activity wi th maximal SUV of 1.9. Unchanged 4 mm pleural-based nodule in the right middle lobe without discernib le FDG activity. Mild dependent atelectasis in the bilateral lower lobes. Heart size is normal. No pe ricardial effusion. Thoracic aorta is normal in caliber. Approximately 1.5 cm focal region of increas ed FDG uptake with maximal SUV of 4.8 at the right hilum likely related to a lymph node which is unab le be distinguished from the adjacent vasculature on the noncontrast CT. No evident pathologically en larged thoracic lymphadenopathy. Small amount of likely salivary activity extending craniocaudally al maddi the esophagus without radiologic correlate. Subcentimeter focus of increased uptake with maximal SUV of 5.0 located along the skin surface at the posterior proximal upper arm with subtle associated focal skin thickening. Abdomen/pelvis/proximal thighs: Physiologic renal accumulation and excretion of FDG activity in the kidneys, bladder and along portio ns of ureters. Normal degree and heterogenous pattern of increased uptake throughout the liver withou t radiologic correlate or dominant FDG avid lesion. The gallbladder, pancreas, spleen and bilateral a drenal glands are normal. Mild uptake scattered throughout the bowels without radiologic correlate, a lso likely physiologic. Uterus and bilateral adnexa are unremarkable. No other abnormal foci of incre ased FDG uptake or pathologically enlarged lymphadenopathy in the abdomen, pelvis or proximal thighs. Musculoskeletal: Severe spondylosis throughout the cervical, thoracic and lumbar spine. Relatively symmetric likely ph ysiologic uptake along the bilateral thoracic paraspinal musculature. No suspicious lytic, blastic or FDG avid bone lesions identified. IMPRESSION: 1. Minimal FDG uptake associated with the ligament millimeters right upper lobe ynes fissural nodule. While reassuring this does not absolutely exclude malignancy and would recommend continued CT follow -up in 3-6 months. 2. Indeterminate focus of moderate increased FDG uptake at the right hilum most likely related to a l ymph node which is unable to be distinct from the adjacent vasculature on noncontrast imaging limitin g assessment for size. This could be reactive, metastatic or due to lymphoma. Would consider chest CT with contrast to establish a baseline and utilization of contrast on follow-up imaging to assess for any interval change. 3. Indeterminate small focus of skin thickening along the posterior proximal left upper arm with asso ciated increased FDG uptake which could be infectious/inflammatory in etiology or related to a primar y skin malignancy. Recommend correlation with physical exam.
[2023-05-29 09:33] LABS: Glucose Point of Care 109 mg/dl (65-105)
== END 2023-05-29 08:59 | disposition home or self-care (01) ==
PROVIDERS: PCP Emergency Medicine; Referring Provider Internal Medicine; Visit Provider Internal Medicine Critical Care Medicine
DX: R91.1 Solitary pulmonary nodule (principal)
CPT/HCPCS: 78815; A9552

== ENCOUNTER 2023-08-30 09:35 | Outpatient (CLI) | payer MEDICARE, SELFPAY ==
--- NOTE | ~2023-08-30 | CT_ITS ---
EXAMINATION:CT diagnostic chest wo con DATE: 08/30/2023 09:54 INDICATION: Pulmonary nodule. TECHNIQUE: Computed tomography (CT) of the chest was performed without intravenous contrast. Automate d exposure control and iterative reconstruction technique were employed. The dose-length product (DLP ) was 87.74 mGy-cm. COMPARISON: Chest CT 03/07/2023, 12/06/22, 12/21/20, PET/CT 05/29/23 FINDINGS: There is mild emphysema. There is mild scarring at the lung apices. There is mild atelectas is bilaterally. There is a 10 mm nodule in right upper lobe abutting the major fissure, stable from and new from 12/21/20 without increased activity on PET on 05/29/23. There is a 4 mm nodule in rig ht upper lobe, stable from 12/21/20. There is 4 mm nodule in right middle lobe, stable from 12/21/20. N o pleural effusion. The heart size is normal. No pericardial effusion. There is severe thoracic spond ylosis. IMPRESSION: 1. Lung-RADS category 2: Benign appearance or behavior. Continue annual screening with noncontrast lo w-dose chest CT in 12 months. Reviewed, dictated and finalized at location E. IMPRESSION: 1. Lung-RADS category 2: Benign appearance or behavior. Continue annual screeni ng with noncontrast low-dose chest CT in 12 months.
== END 2023-08-30 09:36 | disposition home or self-care (01) ==
PROVIDERS: PCP Emergency Medicine; Visit Provider Internal Medicine Critical Care Medicine
DX: R91.1 Solitary pulmonary nodule (principal); R91.8 Other nonspecific abnormal finding of lung field
CPT/HCPCS: 71250

== ENCOUNTER 2024-01-29 11:17 | Outpatient (CLI) | payer MEDICARE, SELFPAY ==
--- NOTE | ~2024-01-29 | CT_ITS ---
EXAMINATION: CT lumbar spine wo con DATE: 01/29/2024 11:31 INDICATION: Low back pain. TECHNIQUE: Computed tomography (CT) of the lumbar spine was performed without intravenous contrast. A utomated exposure control and iterative reconstruction technique were employed. The dose-length produ ct was 492.66 mGy-cm. COMPARISON: CT lumbar spine 10/10/2018 FINDINGS: There is 10 degrees dextroscoliosis of lumbar spine. There is 3 mm retrolisthesis of T12 on L1, 6 mm anterolisthesis of L4 on L5, and 4 mm anterolisthesis of L5 on S1. Vertebral body heights a re normal. There are scattered sclerotic lesions involving most of the bones. There is severely decre ased disc height at T12-L1 and L2-L3, mildly decreased disc height at L3-L4, moderately decreased dis c height at L4-L5, and severely decreased disc height at L5-S1. The following disc levels are specifi raymond discussed: T12-L1: The disc is bulging. There is moderate right and mild left facet joint osteoarthritis. There is mild bilateral neural foraminal stenosis. There is mild central canal stenosis. L1-L2: The disc is bulging. There is severe right and mild left facet joint osteoarthritis. There is no neural foraminal stenosis. There is mild central canal stenosis. L2-L3: The disc is bulging. There is moderate right and mild left facet joint osteoarthritis. There i s mild bilateral neural foraminal stenosis. There is mild central canal stenosis. L3-L4: The disc is bulging. There is moderate bilateral facet joint osteoarthritis. There is mild leandra ateral neural foraminal stenosis. There is mild central canal stenosis. L4-L5: The disc is bulging. There is severe bilateral facet joint osteoarthritis. There is moderate b ilateral neural foraminal stenosis. There is moderate central canal stenosis. L5-S1: The disc is bulging. There is severe bilateral facet joint osteoarthritis. There is moderate b ilateral neural foraminal stenosis. There is mild central canal stenosis. IMPRESSION: 1. Scattered sclerotic bone lesions, new from 10/10/2018, consistent with metastatic disease. 2. Severe lumbar spondylosis. 3. Lumbar dextroscoliosis. Reviewed, dictated and finalized at location A. IMPRESSION: 1. Scattered sclerotic bone lesions, new from 10/10/2018, consistent with metas tatic disease. 2. Severe lumbar spondylosis. 3. Lumbar dextroscoliosis.
== END 2024-01-29 11:18 ==
LOC: MICIMG 11:18
PROVIDERS: PCP Emergency Medicine; Visit Provider Internal Medicine Rheumatology
DX: M43.06 Spondylolysis, lumbar region (principal); M41.86 Other forms of scoliosis, lumbar region; M89.9 Disorder of bone, unspecified
CPT/HCPCS: 72131

== ENCOUNTER 2024-03-25 10:53 | Outpatient (CLI) | payer MEDICARE, SELFPAY ==
--- NOTE | ~2024-03-25 | MMUS_ITS ---
EXAMINATION: MM diagnostic lucas BI w sharon, US breast BI complete HISTORY: Suspicious lesion seen on prior CT PET scan TECHNIQUE: Additional 3-D tomosynthesis images of the breasts were performed and synthetic 2-D images were generated. CAD analysis was submitted and interpreted. High resolution bilateral complete breas t ultrasound was performed. COMPARISON: Comparison to multiple prior studies sequentially, with oldest reviewed study dated 07/13. BREAST PARENCHYMAL COMPOSITION: Not dense: There are scattered areas of fibroglandular density. FINDINGS: MAMMOGRAPHIC FINDINGS: The breasts are stable. No new masses, calcifications are identified in either breast to suggest anthony gnancy. Focal architectural distortion lateral aspect of the left breast on CC view is unchanged from prior studies, likely corresponding to previous lumpectomy site. ULTRASOUND: Complete bilateral US of all 4 quadrants of the breasts and retroareolar region was reviewed. Normal- appearing left axillary lymph nodes. No suspicious solid or cystic mass in either breast to suggest m alignancy. IMPRESSION: 1. No evidence for malignancy in either breast. 2. Routine yearly screening mammogram and regular clinical breast examination are recommended. BI-RADS Category 2: Benign finding(s). Reviewed, dictated and finalized at location B. IMPRESSION: 1. No evidence for malignancy in either breast. 2. Routine yearly screening mammogram and regular clinical breast examination a re recommended. BI-RADS Category 2: Benign finding(s).
== END 2024-03-25 10:54 | disposition home or self-care (01) ==
PROVIDERS: PCP Emergency Medicine; Visit Provider Emergency Medicine
DX: R92.8 Other abnormal and inconclusive findings on diagnostic imaging of breast (principal)
CPT/HCPCS: 76641; 77062; 77066; G0279

== ENCOUNTER 2024-12-15 09:47 | Outpatient (CLI) | payer MEDICARE, SELFPAY ==
[2024-12-15 10:27] LABS: Alanine Aminotransferase 17 U/L (6-35); Albumin Level 4.2 g/dL (3.5-5.1); Alkaline Phosphatase 31 U/L (38-126); Anion Gap 5 mmol/L (4-12); Aspartate Amino Transferase 23 U/L (14-36); Bilirubin,Total 0.6 mg/dL (0.2-1.3); Blood Urea Nitrogen 8 mg/dL (7-17); Calcium 9.4 mg/dL (8.4-10.2); Carbon Dioxide 30 mmol/L (22-30); Chloride 95 mmol/L (98-107); Estimated Glomerular Filt Rate > 60; Glucose 88 mg/dL (65-110); Potassium 4.1 mmol/L (3.4-5.0); Sodium 130 mmol/L (137-145)
[2024-12-15 11:14] LABS: Vitamin D 25 Hydroxy 34.1 ng/mL
--- OUTSIDE RECORDS SUMMARY | 2024-12-15 12:34 | XMS_ITS | Encounter Summary ---
Author Organization [facility] Address [address] [place] [address] Phone Care Team Providers Care Fitting Room Maintenance Mechanic Name Role Phone Roman Dempsey MD Primary Care Provider [phone] David Cloud MD Unavailable [phone] Carol Galindo RN Unavailable Unavailab Yana Leary RN Unavailable Unavailable Yana Jonas RN Unavailable Unavailable Joceline Phillip RN Unavailable Unavailable Encounter Details Date Type Department Care Team (Late st Contact Info) Description 03/03/2024 Telephone [facility] [address] [place] [address] David Cloud MD [address] [place] [address] Social History Tobacco Use Types Packs/Day Years Used Date Smoking Tobacco: Former Smokeless Tobacco: Never Comments:quit 5 years ago Alcohol Use Standard Drinks/Week Comments Not Asked 0 (1 standard drink = 0.6 oz pur e alcohol) PHQ-2 Answer Date Recorded Total Score - Questions 1-9 1 05/30 Comments Unknown Sex and Gender Information Value Date Recorded Sex Assigned at Female 02/16/2024 7:24 AM CDT Legal Sex Female 9:55 AM CDT Gender Identity Female 02/16/2024 7:24 AM CDT Sexual Orientation Straight 02/16/2024 7: 24 AM CDT documented as of this encounter Miscellaneous Notes * Telephone Encounter - Madiha Fitch RN - 03/05/2024 12:19 PM CDT Images from the original note were not included. Jennifer Menendez Mark A, MD23 hours ago (1:09 PM) CH They are schedule out until March David Cloud MD Huelsmann, Carol L; Cc [facility] Supervisor Pool; [facility] Philippi23 hours ago (12:52 PM) MW Ok, sure IR at [facility] can not do it sooner, is that as soon as they can get her in * Telephone Encounter - Jennifer Menendez - 03/03/2024 2:26 PM CDT Pt is scheduled for consult 03/[address] Corcoran. Her F/U is 03/20, would you like me to move apptout? Pleases advice thanks documented in this encounter Plan of Treatment Upcoming Encounters Date Type Department Care Team (Late st Contact Info) Description 01/01/2025 11:15 AM PIPE STRIPPER Office Visit [facility] [id number] [place] [phone] David Cloud MD [address] [place] [phone] 01/01/2025 11:30 AM PIPE STRIPPER Clinical Support [facility] [address] [place] [phone] Nurse, Sydnee Bear documented as of this encounter Visit Diagnoses Not on filedocumented in this encounter Additional Health Concerns Assessment Noted Time PHQ-9 Depression Total Score: 1 06/23/20 21 2:44 PM CDT documented as of this encounter Care Teams Fitting Room Maintenance Mechanic Relationship Specialty Start Date End Date Roman Dempsey MD [address] [address] PCP - General Internal Medicine 10/07/15 David Cloud MD [address] [place] [phone] Consulting Physician Oncology 04/04/24 Carol Galindo RN [place] Oncology Nurse Navigator Oncology 06/02/24 07/27/24 Yana Jonas, RN [place] Registered Nurse 06/02/24 06/02/24 Yana Jonas, RN [place] Oncology Nurse Navigator Oncology 07/02/24 Joceline Phillip, RN [place] Oncology Nurse Navigator Oncology 09/18/24 documented as of this encounter
--- OUTSIDE RECORDS SUMMARY | 2024-12-15 12:34 | XMS_ITS | Encounter Summary ---
Author Organization [facility] Address [address] [place] [address] Care Team Providers Care Chuck Wagon Cook Name Role Phone Roman Dempsey MD Primary Care Provide r Encounter Details Date Type Department Care Team (Late st Contact Info) Description 12/04/2023 Orders Only [facility] Health Information Management [address] [place] [id number] Scanning, Provider Social History Tobacco Use Types Packs/Day Years Used Date Smoking Tobacco: Former Cigarettes 0.8 31.5 0 10/29/1978 - 04/27/2010 Smokeless Tobacco: Never Personal Safety Answer Date Recorded Getting School Help Needed Not on file 11/27 Comments Unknown Sex and Gender Information Value Date Recorded Sex Assigned at Not on file Legal Sex Female 8:20 AM CDT Gender Identity Not on file Sexual Orientation Not on file documented as of this encounter Plan of Treatment Not on file documented as of this encounter Procedures Procedure Name Priority Date/Time Associated Diagnosis Comments SCAN - LABS 12/04/2023 documented in this encounter Results * SCAN - LABS (12/04/2023) us Provider Scanning Final Result documented in this encounter Visit Diagnoses Not on filedocumented in this encounter Care Teams Chuck Wagon Cook Relationship Specialty Start Date End Date Roman Dempsey MD [address] [place] [address] PCP - General Emergency Medicine 12/12/19 documented as of this encounter
--- OUTSIDE RECORDS SUMMARY | 2024-12-15 12:34 | XMS_ITS ---
Author Organization [facility] Address [address], [facility] [address] [place] [address] Phone Care Team Providers Care Balloon Maker Name Role Phone Roman Dempsey MD Primary Care Provider [phone] David Cloud MD Unavailable [phone] Yana Jonas RN Unavailable Unavailable Joceline Phillip RN Unavailable Unavailable Active Problems Patient Care Coordination No te Formatting of this note migh t be different from the original. UNENROLLED FROM PCM 11/12/2024 PCM consent signed 05/22/24 For additional billing time breakdown, see [facility] auditing report. 11/11/2024 WELLNESS F/U & CAREPLAN REVIEW-19 Minutes PCM drops: 12.2023 TOTAL PCM TIME: 59 MINUTES PCM DROP: 30 MINUTES 11.2023 TOTAL PCM TIME: 28 MINUTES PCM DROP: 0 MINUTES 10.2023 TOTAL PCM TIME: 31 MINUTES PCM DROP: 30 MINUTES .2023 TOTAL PCM TIME: 39 MINUTES PCM DROP: 30 MINUTES 8.2023 TOTAL PCM TIME: 82 MINUTES PCM DROP: 60 MINUTES .2023 TOTAL PCM TIME: 7 MINUTES PCM DROP: 0 MINUTES Problem Noted Date Diagnosed Date Elevated blood pressure reading 10/09/2024 Breast cancer screening 06/13/2018 Monoclonal gammopathy 04/06/2016 Malignant neoplasm of lower- inner quadrant of left female breast 10/07/2015 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 No medications schedul ed. 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 No medications schedul ed. No medications scheduled. Past Treatment and Therapy Plans No past plan information found.
--- OUTSIDE RECORDS SUMMARY | 2024-12-15 12:34 | XMS_ITS | Encounter Summary ---
Author Organization [facility] Address [address] [place] [address] Phone Care Team Providers Care Margarine Churn Operator Name Role Phone Roman Dempsey MD Primary Care Provider David Cloud MD Unavailable [phone] Carol Galindo RN Unavailable Unavailab Yana Leary RN Unavailable Unavailable Joceline Phillip RN Unavailable Unavailable Reason for Visit * Reason Onset Date Comments Other 07/17/2024 Canopy Call Encounter Details Date Type Department Care Team (Late st Contact Info) Description 07/17/2024 Telephone [facility] [address] [place] [address] David Cloud MD [address] [place] [phone] Other (Canopy Call ) Social History Tobacco Use Types Packs/Day Years [...] encounter Miscellaneous Notes * Telephone Encounter - Azalea Palma RN - 07/18/2024 12:35 PM CDT Patient notified and verbalized understanding. * Telephone Encounter - Azalea Palma RN - 07/18/2024 12:33 PM CDT Images from the original note were not included. David Cloud MD Blunk, Jennifer A., RMA; Cc [facility] Nurse Pool40 minutes ago (11:52 AM) MW Ok to cont for now * Telephone Encounter - Leela Hercules RMA - 07/17/2024 4:34 PM CDT Pt needs to know if she should stop taking Calcitonin Napier since she started Zometa today # [phone] Document on 07/17/2024 4:34 AM by David Cloud MD: General: Clinical question - Phone Nurse, and 1 call documented in this encounter Plan of Treatment Upcoming Encounters Date Type Department Care Team (Late st Contact Info) Description 01/01/2025 11:15 AM FAST FOOD RESTAURANT MANAGER Office Visit [facility] [address] [place] [phone] David Cloud MD [address] [place] [phone] 01/01/2025 11:30 AM FAST FOOD RESTAURANT MANAGER Clinical Support [facility] [address] [place] [phone] Nurse, Sydnee Bear documented as of this encounter Visit Diagnoses Not on filedocumented in this encounter Additional Health Concerns Assessment Noted Time PHQ-9 Depression Total Score: 1 06/23/20 21 2:44 PM CDT documented as of this encounter Care Teams Margarine Churn Operator Relationship Specialty Start Date End Date Roman Dempsey MD [address] [facility] [address] [place] [address] PCP - General Internal Medicine 10/07/15 David Cloud MD [address] [place] [phone] Consulting Physician Oncology 04/04/24 Carol Galindo, [place] [facility] Nurse Navigator Oncology 06/02/24 07/27/24 Yana Jonas, RN [place] [facility] Nurse Navigator Oncology 07/02/24 Joceline Phillip, DEBBIE [place] [facility] Nurse Navigator Oncology 09/18/24 documented as of this encounter
--- OUTSIDE RECORDS SUMMARY | 2024-12-15 12:34 | XMS_ITS | Encounter Summary ---
Author Organization [facility] Address [address] [place] [address] Phone Care Team Providers Care Technical Recruiter Name Role Phone Roman Dempsey MD Primary Care Provider David Cloud MD Unavailable [phone] Carol Galindo RN Unavailable Unavailab Yana Leary RN Unavailable Unavailable Yana Jonas RN Unavailable Unavailable Joceline Phillip RN Unavailable Unavailable Encounter Details Date Type Department Care Team (Late st Contact Info) Description 03/28/2024 Telephone [facility] [address] [place] [address] David Cloud MD [address] [place] [address] Social History Tobacco Use Types [...] encounter Miscellaneous Notes * Telephone Encounter - Jennifer Menendez - 03/28/2024 11:00 AM CDT Pt called stated she is having needle biopsy 04/01 @ [facility] would you like to schedule pt 04/17 in [place]? Please advice thanks documented in this encounter Plan of Treatment Upcoming Encounters Date Type Department Care Team (Late st Contact Info) Description 01/01/2025 11:15 AM CIRCUIT BREAKER SUPERVISOR Office Visit [facility] [address] [place] [address] David Cloud MD [address] [place] [address] 01/01/2025 11:30 AM CIRCUIT BREAKER SUPERVISOR Clinical Support [facility] [address] [facility] [address] [phone] Nurse, Sydnee [place] documented as of this encounter Visit Diagnoses Not on filedocumented in this encounter Additional Health Concerns Assessment Noted Time PHQ-9 Depression Total Score: 1 06/23/20 21 2:44 PM CDT documented as of this encounter Care Teams Technical Recruiter Relationship Specialty Start Date End Date Roman Dempsey MD [address] [place] [address] PCP - General Internal Medicine 10/07/15 David Cloud MD [address] [place] [phone] Consulting Physician Oncology 04/04/24 Carol Galindo, DEBBIE [place] Oncology Nurse Navigator Oncology 06/02/24 07/27/24 Yana Jonas, RN [place] Registered Nurse 06/02/24 06/02/24 Yana Jonas RN [place] Oncology Nurse Navigator Oncology 07/02/24 Joceline Phillip, DEBBIE [place] Oncology Nurse Navigator Oncology 09/18/24 documented as of this encounter
--- OUTSIDE RECORDS SUMMARY | 2024-12-15 12:34 | XMS_ITS | Referral Summary ---
Author Organization [facility] [address] Address [address] [place] [address] Care Team Providers Care Staking Technician Name Role Phone Roman Dempsey MD Primary Care Provide r Allergies No known active allergies Medications calcitonin (MIACALCIN) 200 unit/actuation nasal spray USE ONE SPRAY INTRANASALLY DAILY ALTERNATING NOSTRILS EACH DAY 2 Active estradioL (ESTRACE) 0.01 % (0.1 mg/gram) vaginal cream USE VAGINALLY AT BEDTIME DIRECTED 2 TIMES PER WEEK 2 Active sulfaSALAzine (AZULFIDINE) 500 mg tablet 3 Active clobetasol propionate/emol l (CLOBETASOL-EMO LLIENT TOP) 4 Active tacrolimus (PROTOPIC) 0.1 % ointment Apply to rash twice daily until resolved, then apply twice a week for maintenance. [address] (CYMBALTA) 30 mg capsule Take 1 capsule (30 mg total) by mouth daily 3 Active metoprolol tartrate (LOPRESSOR) 25 mg immediate release tablet Take 1 Tablet (25 mg) by mouth 2 times daily. 180 tablet 3 4 Active Eliquis 5 mg tabletIndicatio ns:Atrial fibrillation, unspecified type (HCC) TAKE 1 TABLET TWICE A DAY 180 tablet 3 4 Active Active Problems Problem Noted Date Diagnosed Date Visit for wound check 03/08/2023 Status post placement of implantable loop record er 03/01/2023 Overview (03/01/2023): Biomonitor IIIm Loop Recorder. Dx; PAF. DOI 03/01/2023-[place]. [place]. Biotronik remote home monitoring. Social History Tobacco Use Types Packs/Day Years [...] on file Sexual Orientation Not on file Last Filed Vital Signs Vital Sign Reading Time Taken Comments Blood Pressure 130/80 02/20/2024 10:44 AM CDT Pulse 60 02/20/2024 10:44 AM CDT Temperature - - Respiratory Rate - - Oxygen Saturation 97% 02/20/2024 10:44 AM CDT Inhaled Oxygen Concentration - - Weight 71 kg (156 lb 8 oz) 02/20/2024 10:44 AM C DT Height 167.6 cm (5' 6 ) 02/20/2024 10:44 AM CDT Body Mass Index 25.26 02/20/2024 10:44 AM CDT Plan of Treatment Not on file Insurance MEDICARE AET SENIOR SUPPLEMENT MEDICARE AETNA SENIOR SUPPLEMENT Care Teams Staking Technician Relationship Specialty Start Date End Date Roman Dempsey MD [address] [place] [address] PCP - General Emergency Medicine 12/12/19
--- OUTSIDE RECORDS SUMMARY | 2024-12-15 12:34 | XMS_ITS | Clinical Summary ---
Author Organization [facility] Address [address] [place] [address] Care Team Providers Care Director Advertising Name Role Phone Roman Dempsey MD Primary Care Provider [phone] Allergies No known active allergies Medications albuterol sulfate HFA 108 (90 Base) MCG/ACT inhaler Inhale 2 puffs by mouth every 4 - 6 hours as needed for shortness of breath 3 Active apixaban (ELIQUIS) 5 MG tablet Take 1 tablet (5 mg total) by mouth 2 (two) times daily. 2 Active clobetasol (TEMOVATE) 0.05 % cream Apply thin layer to rash twice daily up to 4 weeks, then take a 2-week break (no face); once resolved, then use twice weekly for 6 months. 4 Active estradiol (ESTRACE) 0.1 MG/GM vaginal cream USE VAGINALLY AT BEDTIME 2 TIMES PER WEEK 3 Active metoprolol tartrate (LOPRESSOR) 25 MG tablet 1/2 tab twice day 3 Active sulfaSALAzine (AZULFIDINE) 500 MG tablet Take 2 tablets (1,000 mg total) by mouth 2 (two) times daily. 1 Active multi vitamin/mineral s (THERA-M ENHANCED) tablet Take 1 tablet by mouth daily. Active traMADol (ULTRAM) 50 MG tablet Take 1 tablet (50 mg total) by mouth every 6 (six) hours as needed for Pain. Active cyclobenzaprine (FLEXERIL) 5 MG tablet Take 1 tablet (5 mg total) by mouth every 8 (eight) hours as needed. 4 Active fluticasone propionate (FLONASE) 50 MCG/ACT nasal spray Administer 1 spray in each nostril twice daily 4 Active FULVESTRANT IM 4 Active ondansetron (ZOFRAN) 4 MG tablet Take 1 tablet (4 mg total) by mouth every 6 (six) hours as needed. 4 Active palbociclib (IBRANCE) 100 MG capsule 4 Active prochlorperazin e (COMPAZINE) 10 MG tablet Take 1 tablet (10 mg total) by mouth every 4 (four) hours as needed. 4 Active tacrolimus (PROTOPIC) 0.1 % ointment 4 Active Zoledronic Acid (ZOMETA IV) 4 Active HYDROcodone-hira taminophen (NORCO) 5-325 MG tabletIndicatio ns:Acute Pain < 7 Day Supply Take 1 tablet by mouth every 6 (six) hours as needed. Indications: Acute Pain < 7 Day Supply 20 tablet 5 Active Active Problems Problem Noted Date Diagnosed Date Lumbar facet arthropathy 08/28/2024 Encounters Date Type Department Care Team Description 12/10/2024 10:41 AM FARM HELPER - 12/10/2024 11:59 PM [facility] Hospital Encounter [facility] [place] [address] Azra Montero NP Arrived Discharge Disposition: Home or Self Care (Routine Discharge) 12/10/2024 Travel 12/05/2024 Telephone [facility] Interventional [place] [address] [id number] Eli Jain RN Follow Up (/) 12/04/2024 Transcribe Orders [facility] Pre Access Team [address] [place] [address] Azra Montero NP 12/01/2024 Telephone [facility] Interventional [place] [address] [id number] Arabella Malik, DEBBIE Appointment Reminder 11/25/2024 11:20 AM FARM HELPER - 11/25/2024 11:40 AM [facility] Surgery [facility] [place] [address] [id number] Madison Trent MD RADIOFREQUENCY LUMBAR [id number] 11/25/2024 10:37 AM FARM HELPER - 11/25/2024 1:11 PM FARM HELPER Hospital Encounter [facility] [place] [address] [id number] Madison Trent MD Discharge Disposition: Home or Self Care (Routine Discharge) 11/25/2024 Travel 10/20/2024 Telephone [facility] [place] [address] [id number] Margaret Ingram RN Postprocedure Call 10/15/2024 12:00 PM FARM HELPER - 10/15/2024 12:20 PM [facility] Surgery [facility] [place] [address] [id number] Madison Trent MD BLOCK MEDIAL BRANCH LUMBAR L3,4,5, 10/15/2024 11:15 AM FARM HELPER - 10/15/2024 12:38 PM FARM HELPER Hospital Encounter [facility] [place] [address] [id number] Madison Trent MD Discharge Disposition: Home or Self Care (Routine Discharge) 10/15/2024 Travel 09/18/2024 Telephone [facility] [place] [address] [id number] Eli Jain RN Follow Up (/) 09/17/2024 11:40 AM FARM HELPER - 09/17/2024 12:00 PM FARM HELPER Surgery [facility] Interventional [place] [address] [id number] Madison Trent MD BLOCK MEDIAL BRANCH LUMBAR-L345 09/17/2024 11:02 AM FARM HELPER - 09/17/2024 12:26 PM FARM HELPER Hospital Encounter [facility] Interventional Pain [place] [address] [id number] Madison Trent MD Discharge Disposition: Home or Self Care (Routine Discharge) 09/17/2024 Travel from Last 3 Months Immunizations Name Administration Dates Next Due PFIZER COVID-19 (ORIGINAL FO RMULATION, PURPLE CAP) mRNA, LNP-S, PF, 30 MCG/0.3 ML DOSE 01/24/2021,01/03/2021 Social History Tobacco Use Types Packs/Day Years Used Date Smoking Tobacco: Former Cigarettes Q uit: 2019 Smokeless Tobacco: Never Tobacco Cessation:Counseling Given: Not Answered Comments No Sex and Gender Information Value Date Recorded Sex Assigned at Female 11/25/2024 10:36 AM FARM HELPER Legal Sex Female 4:09 PM CDT Gender Identity Not on file Sexual Orientation Not on file Last Filed Vital Signs Vital Sign Reading Time Taken Comments Blood Pressure 151/96 11/25/2024 12:13 PM FARM HELPER Pulse 57 11/25/2024 12:13 PM FARM HELPER Temperature 36.7 C (98.1 F) 11/25/2024 11:53 AM FARM HELPER Respiratory Rate 18 11/25/2024 12:13 PM FARM HELPER Oxygen Saturation 94% 11/25/2024 12:13 PM FARM HELPER Inhaled Oxygen Concentration - - Weight 70.3 kg (155 lb) 11/25/2024 11:53 AM FARM HELPER Height 167.6 cm (5' 6 ) 11/25/2024 11:53 AM FARM HELPER Body Mass Index 25.02 11/25/2024 11:53 AM FARM HELPER Plan of Treatment Upcoming Encounters Date Type Department Care Team (Latest Contact Info) Description 12/19/2024 10:30 AM FARM HELPER Appointment [facility] [place] [address] [place] [address] Azra Montero, [facility] [employer] [employer] [address] [place], [place] [id number] 12/24/2024 11:20 AM FARM HELPER Hospital Encounter [facility] Interventional [place] [address] [id number] Madison Trent MD [facility] [address] [place] [phone] 12/24/2024 11:20 AM FARM HELPER - 12/24/2024 11:40 AM FARM HELPER Surgery [facility] [place]ventional [place] [address] [id number] Madison Trent MD [facility] [address] [place] [address] RADIOFREQUENCY LUMBAR [id number] Scheduled Procedures Name Priority Associated Diagnoses Date/Ti me RADIOFREQUENCY LUMBAR Lumbar facet arthropathy 12/24/2024 11:20 AM FARM HELPER Health Maintenance Due Date Last Done Comments Colorectal Cancer Screening Colonoscopy (10 Years) 1955 Zoster Vaccines (1 of 2) 11/03/2014 09/08/2014 RSV Immunization or 60+ Years (1 - Risk 60-74 years 1-dose series) 2017 COVID-19 Vaccine (3 - Pfizer risk series) 02/21/2021 01/24/2021, 01/03/2021 Annual Medicare Wellness Visit 2022 Mammogram Screening 10/19/2022 10/19/2020, 10/04/2018, 07/02/2015 Influenza Adult (#1) 2024 DTaP, Tdap and Td Vaccines ( 2 - Td or Tdap) 05/11/2027 05/11/2017 Dexa Scan (General) Completed 07/13/2017, 07/02/2015 Hepatitis C Completed 08/29/2019, 03/28/2019 Pneumococcal Vaccine: 65+ Years Completed 09/01/2023 Meningococcal B Vaccine Aged Out No l onger eligible based on patient's age to complete this topic Meningococcal Vaccine Aged Out No lyubov marielena eligible based on patient's age to complete this topic RSV Immunizations Under 20 Months Aged Out No longer eligible b ased on patient's age to complete this topic Procedures Procedure Name Priority Date/Time Associated Diagnosis Comments NM BONE SCAN WHOLE BODY WO SPECT Routine 12/10/2024 2:11 PM FARM HELPER Malignant neoplasm of lower-inner quadrant of left breast, estrogen receptor positive (CMS/HCC HHS/HCC) Carcinoma of breast metastatic to bone, unspecified laterality (CMS/HCC HHS/HCC) LUMBAR OR SACRAL SINGLE FACET JOINT 11/25/2024 12:01 PM FARM HELPER Lumbar facet arthropathy XR [facility]IN [facility] C-ARM Today 11/25/2024 10:52 AM FARM HELPER INJ PARAVERTEBRAL FACET JOINT W IMAGE SINGL 10/15/2024 12:19 PM FARM HELPER Lumbar facet arthropathy XR PAIN CLIN[facility] C-ARM Today 10/15/2024 12:10 PM FARM HELPER INJ PARAVERTEBRAL FACET JOINT W IMAGE SINGL 09/17/2024 11:59 AM FARM HELPER Lumbar facet arthropathy XR PAIN CLINIC C-ARM Today 09/17/2024 11:08 AM FARM HELPER HEPATITIS C ANTIBODY Routine 08/29/2019 11:46 AM CDT Special screening examination for viral disease Encounter for therapeutic drug monitoring from Last 3 Months or Most Recently Relevant to Health Maintenance Results * NM BONE SCAN WHOLE BODY WO SPECT (12/10/2024 2:11 PM FARM HELPER) Anatomical Region Laterality Modality Bone Nuclear Medicine 12/11/2024 8:29 AM FARM HELPER Impressions 12/11/2024 8:40 AM FARM HELPER IMPRESSION: Multifocal osteoblastic metastatic disease appears similar distribution to the prior exam with similar or slightly decreasing uptake at sites of involvement. No new or increasing area of uptake to suggest progression. Ordered By: AZRA MONTERO Interpreted By: Romina Jensen MD, 12/11/2024 8:29 AM Narrative 12/11/2024 8:40 AM FARM HELPER [address] [address] EXAMINATION: BONE SCINTIGRAPHY (WHOLE-BODY) DATE OF STUDY: 12/10/2024 RADIOPHARMACEUTICAL: 24.6 mCi Tc-99m MDP i.v. HISTORY: Invasive ductal carcinoma of the left breast status post lumpectomy and radiation in 2012 with hormone therapy intermittently through 2015. 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 FINDINGS: Delayed whole-body scintigrams were obtained. Additional dedicated static images of the ribs, pelvis, and head and neck were obtained. Prior nuclear medicine studies used for comparison: Whole-body bone scintigraphy 08/29/2024, FDG PET [facility] [place] 05/22/2024 Other radiographic comparisons: none Multifocal areas of increased uptake appear similar in distribution to the prior exam. This includes the left lateral 11th rib, left posterior eighth rib, T6 vertebral body, right L5 vertebral body, and on the right at T12 corresponding with a small sclerotic lesion in the head of the right 12th rib. Subtle uptake along the medial right acetabulum, right posterior ilium, sacrum, and inferior right scapula. These sites all correspond with sclerotic lesions on the prior PET/CT. Overall distribution is similar to the prior exam with similar or decreasing uptake at the sites of involvement. For instance, the left posterior eighth rib and medial right acetabulum appear to have slightly decreased in uptake when compared to the prior exam. No new or increasing focal area of uptake to suggest progression. Multifocal osteoarthritic degenerative pattern of uptake involving the shoulders, wrists, spine, hips, knees, and feet. Procedure Note Romina Jensen MD - 12/11/[address] [address] EXAMINATION: BONE SCINTIGRAPHY (WHOLE-BODY) DATE OF STUDY: 12/10/2024 RADIOPHARMACEUTICAL: 24.6 mCi Tc-99m MDP i.v. HISTORY: Invasive ductal carcinoma of the left breast status postlumpectomy and radiation in 2012 with hormone therapy intermittentlythrough 2015. Biopsy proven bone metastasis in the lumbar spine in March2024. FINDINGS: Delayed whole-body scintigrams were obtained. Additionaldedicated static images of the ribs, pelvis, and head and neck wereobtained. Prior nuclear medicine studies used for comparison: Whole-body bonescintigraphy 08/29/2024, FDG PET CT [facility] 05/22/2024 Other radiographic comparisons: none Multifocal areas of increased uptake appear similar in distribution to theprior exam. This includes the left lateral 11th rib, left posterior eighthrib, T6 vertebral body, right L5 vertebral body, and on the right at [id number] with a small sclerotic lesion in the head of the right 12thrib. Subtle uptake along the medial right acetabulum, right posteriorilium, sacrum, and inferior right scapula. These sites all correspond withsclerotic lesions on the prior PET/CT. Overall distribution is similar tothe prior exam with similar or decreasing uptake at the sites ofinvolvement. For instance, the left posterior eighth rib and medial rightacetabulum appear to have slightly decreased in uptake when compared tothe prior exam. No new or increasing focal area of uptake to suggestprogression. Multifocal osteoarthritic degenerative pattern of uptake involving theshoulders, wrists, spine, hips, knees, and feet. IMPRESSION: Multifocal osteoblastic metastatic disease appears similar distribution tothe prior exam with similar or slightly decreasing uptake at sites ofinvolvement. No new or increasing area of uptake to suggest progression. Ordered By: AZRA MONTERO Interpreted By: Romina Jensen MD, 12/11/2024 8:29 AM us Azra Montero [facility] [employer] N[facility] Final Result * XR PAIN CLINIC C-ARM (11/25/2024 10:52 AM FARM HELPER) Only the most recent of3 resultswithin the time period is included. Narrative Radiology, Technologist - 11/25/2024 10:52 AM FARM HELPER This report does not contain a radiologist's interpretation. Please review associated procedure and/or operative report. Madison Trent MD GENERAL IMAGING Final Result * HEPATITIS C ANTIBODY (08/29/2019 11:46 AM CDT) HEPATITIS C AB NON-REACTI VE NON-REACTI VE 08/29/2019 2:59 PM CDT [facility] 08/29/2019 11:4 6 AM CDT Richard Hubbard MD LABORATORY Final Result [facility] [address] [place] [address], [place] [phone] from Last 3 Months or Most Recently Relevant to Health Maintenance Insurance MEDICARE AETNA Care Teams Director Advertising Relationship Specialty Start Date End Date Roman Dempsey MD [address] [place], [place] [id number] PCP - General INTERNAL MEDICINE 06/06/19
--- OUTSIDE RECORDS SUMMARY | 2024-12-15 12:34 | XMS_ITS | Clinical Summary ---
Author Organization [facility] Address [address], [facility] [address] [place] [address] Phone Care Team Providers Care Fuse Cup Expander Name Role Phone Roman Dempsey MD Primary Care Provider David Cloud MD Unavailable [phone] Yana Jonas RN Unavailable Unavailable Joceline Phillip RN Unavailable Unavailable Allergies No known active allergies Medications Multiple Minerals-Vitam ins (NUTRA-SUPPORT BONE PO) Take by mouth. Reported on 11/09/2016 Active Cholecalcifero l (VITAMIN D PO) Take 1.25 mg by mouth. Active metoprolol tartrate (LOPRESSOR) 25 MG Tablet 1/2 tab twice day 3 Active estradiol (ESTRACE) 0.1 MG/GM Cream USE VAGINALLY AT BEDTIME 2 TIMES PER WEEK 2 Active calcitonin, salmon, (FORTICAL;[facility]) 200 UNIT/ACT Solution 3 Active albuterol 108 (90 Base) MCG/ACT Aerosol Solution Inhale 2 puffs by mouth every 4 - 6 hours as needed for shortness of breath 3 Active clobetasol (TEMOVATE) 0.05 % Cream Apply thin layer to rash twice daily up to 4 weeks, then take a 2-week break (no face); once resolved, then use twice weekly for 6 months. 4 Active apixaban (ELIQUIS) 5 MG Tablet Take 5 mg by mouth. 2 Active sulfaSALAzine (AZULFIDINE) 500 MG Tablet Take 1,000 mg by mouth. 1 Active traMADol (ULTRAM) 50 MG Tablet Take 50 mg by mouth. Active ondansetron (Zofran) 4 MG Tablet Take 1 Tablet by mouth every 6 hours as needed for Nausea - 1st line. 30 Tablet 3 4 Active prochlorperazi ne (COMPAZINE) 10 MG Tablet Take 1 Tablet by mouth every 4 hours as needed for Nausea - 2nd line. 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 Take one tablet by mouth once daily on days 1-21 of each 28 day treatment cycle. Swallow tablets whole. Avoid grapefruit. 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 Take one tablet by mouth once daily on days 1-21 of each 28 day treatment cycle. Swallow tablets whole. Avoid grapefruit. 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 Take one tablet by mouth once daily on days 1-21 of each 28 day treatment cycle. Swallow tablets whole. Avoid grapefruit. 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/20 15 Encounters Date Type Department Care Team Description 12/11/2024 Telephone [facility] [address], [facility] 1 [place] [address] David Cloud MD Medication Refill (Ibrance) 12/04/2024 12:00 PM TECHNICAL BUSINESS SYSTEMS ANALYST Clinical Support [facility] [address] [address] Nurse, Sydnee Glen Richey Malignant neoplasm of lower-inner quadrant of left female breast, unspecified estrogen receptor status (HCC) (Primary Dx) 12/04/2024 11:45 AM TECHNICAL BUSINESS SYSTEMS ANALYST Office Visit [facility] [address] [phone] Ofelia Montero, HAND MITER OPERATOR, VACUUM CLOSING MACHINE OPERATOR Malignant neoplasm of lower-inner quadrant of left breast in female, estrogen receptor positive (HCC) (Primary Dx); Carcinoma of breast metastatic to bone, unspecified laterality (HCC) 12/04/2024 Travel 11/20/2024 11:00 AM TECHNICAL BUSINESS SYSTEMS ANALYST Clinical Support [facility] [address] [phone] Malignant neoplasm of lower-inner quadrant of left breast in female, estrogen receptor positive (HCC) (Primary Dx) 11/20/2024 Travel 11/11/2024 8:00 AM TECHNICAL BUSINESS SYSTEMS ANALYST Care Management [facility] [address] [place] [phone] Navigator, Cc Ofallon Nurse Care Management (WELLNESS F/U & CAREPLAN REVIEW) 11/07/2024 Refill [facility] [address], [facility] [address] [place] [phone] David Cloud MD Medication Refill (Ibrance) 11/06/2024 11:30 AM TECHNICAL BUSINESS SYSTEMS ANALYST Clinical Support [facility] [address] [address] Nurse, Cc [place] Richey Malignant neoplasm of lower-inner quadrant of left female breast, unspecified estrogen receptor status (HCC) (Primary Dx) 11/06/2024 Travel 10/30/2024 2:15 PM TECHNICAL BUSINESS SYSTEMS ANALYST Clinical Support [facility] [address] [phone] Navigator, Sydnee Ofhieu Nurse Malignant neoplasm of lower-inner quadrant of left breast in female, estrogen receptor positive (HCC) (Primary Dx) 10/20/2024 11:15 AM TECHNICAL BUSINESS SYSTEMS ANALYST Care Management [facility] [address] [phone] Navigator, Cc Ofallon Nurse Care Management (WELLNESS F/U & CAREPLAN REVIEW) 10/09/2024 2:00 PM TECHNICAL BUSINESS SYSTEMS ANALYST Lab [facility] [address] [address] Nurse, Cc [place] R[place]y Monoclonal gammopathy (Primary Dx) 10/09/2024 1:15 PM TECHNICAL BUSINESS SYSTEMS ANALYST Clinical Support [facility] [address] [phone] Nurse, Cc [place] Richey Malignant neoplasm of lower-inner quadrant of left female breast, unspecified estrogen receptor status (HCC) (Primary Dx) 10/09/2024 1:00 PM TECHNICAL BUSINESS SYSTEMS ANALYST Office Visit [facility] [address] [address] David Cloud MD Malignant neoplasm of lower-inner quadrant of left breast in female, estrogen receptor positive (HCC) (Primary Dx); Encounter for screening mammogram for malignant neoplasm of breast; Osteoporosis due to aromatase inhibitor 10/09/2024 12:15 PM TECHNICAL BUSINESS SYSTEMS ANALYST Clinical Support [facility] [address] [phone] Navigator, Sydnee Catalan Nurse Malignant neoplasm of lower-inner quadrant of left breast in female, estrogen receptor positive (HCC) (Primary Dx) 10/09/2024 Refill [facility] [address], [place] [address] [place] [phone] David Cloud MD Medication Refill (Ibrance) 10/09/2024 Travel 10/02/2024 12:00 PM TECHNICAL BUSINESS SYSTEMS ANALYST Clinical Support [facility] [address] [place] [address] Nurse, Sydnee Glen Richey Skin infection (Primary Dx) 10/02/2024 Travel 09/29/2024 1:00 PM TECHNICAL BUSINESS SYSTEMS ANALYST Clinical Support [facility] [address] [phone] Navigator, Sydnee Catalan Nurse Malignant neoplasm of lower-inner quadrant of left breast in female, estrogen receptor positive (HCC) (Primary Dx) 09/29/2024 Telephone [facility] [address] [phone] David Cloud MD 09/18/2024 11:45 AM TECHNICAL BUSINESS SYSTEMS ANALYST Care Management [facility] [address] [phone] Navigator, Sydnee Catalan Nurse Care Management (WELLNESS F/U & CAREPLAN REVIEW) from Last 3 Months Immunizations Immunization Administration Dates Next Due Covid-19, Mrna, Lnp-s, Pf, 30 Mcg/0.3 Ml Dose (Maya brooks) 01/24/2021,01/03/2021 TDAP Vaccine 05/11/2017 Zoster Vaccine, live 09/08/2014 Family History Medical History Relation Name Comments Cancer Brother unknown type Diabetes Other 1 Heart Disease Other 2 Hypertension Other 3 Relation Name Status Comments Brother Other 1 Other 2 Other 3 Social History Tobacco Use Types Packs/Day Years Used Date Smoking Tobacco: Former Smokeless Tobacco: Never Tobacco Cessation:Counseling Given: Not Answered Comments:quit 5 years ago Alcohol Use Standard [...] Orientation Straight 02/16/2024 7: 24 AM CDT Last Filed Vital Signs Vital Sign Reading Time Taken Comments Blood Pressure 124/82 12/04/2024 11:50 AM TECHNICAL BUSINESS SYSTEMS ANALYST Pulse 60 12/04/2024 11:50 AM TECHNICAL BUSINESS SYSTEMS ANALYST Temperature 36.6 C (97.9 F) 12/04/2024 11:50 AM TECHNICAL BUSINESS SYSTEMS ANALYST Respiratory Rate 18 12/04/2024 11:50 AM TECHNICAL BUSINESS SYSTEMS ANALYST Oxygen Saturation 99% 12/04/2024 11:50 AM TECHNICAL BUSINESS SYSTEMS ANALYST Inhaled Oxygen Concentration - - Weight 72.4 kg (159 lb 9.6 oz) 12/04/2024 11:50 AM TECHNICAL BUSINESS SYSTEMS ANALYST Height 172.7 cm (5' 8 ) 12/04/2024 11:50 AM TECHNICAL BUSINESS SYSTEMS ANALYST Body Mass Index 24.27 12/04/2024 11:50 AM TECHNICAL BUSINESS SYSTEMS ANALYST Plan of Treatment Upcoming Encounters Date Type Department Care Team (Late st Contact Info) Description 01/01/2025 11:15 AM TECHNICAL BUSINESS SYSTEMS ANALYST Office Visit [facility] [address] [phone] David Cloud MD [address] [place] [phone] 01/01/2025 11:30 AM TECHNICAL BUSINESS SYSTEMS ANALYST Clinical Support [facility] [address] [phone] Nurse, Cc Glen Richey Health Maintenance Due Date Last Done Comments Colonoscopy 2002 Colorectal Cancer Screening 2002 Cologuard 2007 Immunochemical Fecal Occult Blood 2007 Zoster Immunization (1 of 2) 11/03/2014 09/08/2014 DEXA Bone Density 07/13/2019 07/13/2017, 07/02/2015 Mammogram 10/19/2021 10/19/2020, 09/29, 10/17/2019, Additional history exists Influenza Immunization (#1) 2024 SARS-COV-2 Immunization (9 - Pfizer risk season) 2025 07/18/2024, 08/19/2023, 02/20/2023, Additional history exists Td Immunization Every 10 Years (Adults With 1 Tdap) 05/11/2027 05/11/2017 DTaP/Tdap/Td Immunization Discontinued 05/11/2017 Hepatitis C Virus (HCV) Screening Completed 08/29/2019, 03/28/2019 Respiratory Syncytial Virus (RSV) Immunization (Adult) Completed 08/25/2023 Pneumococcal Immunization (50+ years) Completed 09/01/2023 Pneumococcal Immunization Combined Discontinued 09/01/2023 Hepatitis B Immunization Aged Out No longer eligible based on patient's age to complete this topic Meningococcal Immunization (ACWY) Aged Out No longer eligible based on patient's age to complete this topic Rotavirus Immunization Aged Out No lo nger eligible based on patient's age to complete this topic Procedures Procedure Name Priority Date/Time Associated Diagnosis Comments COMPLETE BLOOD COUNT (CBC) WITH DIFF Routine 12/04/2024 3:25 PM TECHNICAL BUSINESS SYSTEMS ANALYST Malignant neoplasm of lower-inner quadrant of left breast in female, estrogen receptor positive (HCC) CMP (COMPREHENSIVE METABOLIC PANEL) Routine 12/04/2024 3:25 PM TECHNICAL BUSINESS SYSTEMS ANALYST Malignant neoplasm of lower-inner quadrant of left breast in female, estrogen receptor positive (HCC) LACTATE DEHYDROGENASE (LD) Routine 12/04/2024 3:25 PM TECHNICAL BUSINESS SYSTEMS ANALYST Malignant neoplasm of lower-inner quadrant of left breast in female, estrogen receptor positive (HCC) CARCINOEMBRYONIC ANTIGEN (CEA) Routine 12/04/2024 3:25 PM TECHNICAL BUSINESS SYSTEMS ANALYST Malignant neoplasm of lower-inner quadrant of left breast in female, estrogen receptor positive (HCC) CANCER ANTIGEN (CA) 15-3 Routine 025 3:25 PM TECHNICAL BUSINESS SYSTEMS ANALYST Malignant neoplasm of lower-inner quadrant of left breast in female, estrogen receptor positive (HCC) COMPLETE BLOOD COUNT (CBC) WITH DIFF Routine 11/06/2024 11:55 AM TECHNICAL BUSINESS SYSTEMS ANALYST Malignant neoplasm of lower-inner quadrant of left breast in female, estrogen receptor positive (HCC) Encounter for screening mammogram for malignant neoplasm of breast Osteoporosis due to aromatase inhibitor CMP (COMPREHENSIVE METABOLIC PANEL) Routine 11/06/2024 11:55 AM TECHNICAL BUSINESS SYSTEMS ANALYST Malignant neoplasm of lower-inner quadrant of left breast in female, estrogen receptor positive (HCC) Encounter for screening mammogram for malignant neoplasm of breast Osteoporosis due to aromatase inhibitor LACTATE DEHYDROGENASE (LD) Routine 11/06/2024 11:55 AM TECHNICAL BUSINESS SYSTEMS ANALYST Malignant neoplasm of lower-inner quadrant of left breast in female, estrogen receptor positive (HCC) Encounter for screening mammogram for malignant neoplasm of breast Osteoporosis due to aromatase inhibitor CANCER ANTIGEN (CA) 15-3 Routine 025 11:55 AM TECHNICAL BUSINESS SYSTEMS ANALYST Malignant neoplasm of lower-inner quadrant of left breast in female, estrogen receptor positive (HCC) Encounter for screening mammogram for malignant neoplasm of breast Osteoporosis due to aromatase inhibitor CARCINOEMBRYONIC ANTIGEN (CEA) Routine 11/06/2024 11:55 AM TECHNICAL BUSINESS SYSTEMS ANALYST Malignant neoplasm of lower-inner quadrant of left breast in female, estrogen receptor positive (HCC) Encounter for screening mammogram for malignant neoplasm of breast Osteoporosis due to aromatase inhibitor COMPLETE BLOOD COUNT (CBC) WITH DIFF Routine 10/09/2024 9:29 AM TECHNICAL BUSINESS SYSTEMS ANALYST Malignant neoplasm of lower-inner quadrant of left breast in female, estrogen receptor positive (HCC) Encounter for screening mammogram for malignant neoplasm of breast CMP (COMPREHENSIVE METABOLIC PANEL) Routine 10/09/2024 9:29 AM TECHNICAL BUSINESS SYSTEMS ANALYST Malignant neoplasm of lower-inner quadrant of left breast in female, estrogen receptor positive (HCC) Encounter for screening mammogram for malignant neoplasm of breast LACTATE DEHYDROGENASE (LD) Routine 10/09/2024 9:29 AM TECHNICAL BUSINESS SYSTEMS ANALYST Malignant neoplasm of lower-inner quadrant of left breast in female, estrogen receptor positive (HCC) Encounter for screening mammogram for malignant neoplasm of breast CARCINOEMBRYONIC ANTIGEN (CEA) Routine 10/09/2024 9:29 AM TECHNICAL BUSINESS SYSTEMS ANALYST Malignant neoplasm of lower-inner quadrant of left breast in female, estrogen receptor positive (HCC) Encounter for screening mammogram for malignant neoplasm of breast CANCER ANTIGEN (CA) 15-3 Routine 024 9:29 AM TECHNICAL BUSINESS SYSTEMS ANALYST Malignant neoplasm of lower-inner quadrant of left breast in female, estrogen receptor positive (HCC) Encounter for screening mammogram for malignant neoplasm of breast GURVINDER SCREENING BILATERAL DIGITAL W CAD Routine 10/19/2020 Malignant neoplasm of lower-inner quadrant of left breast in female, estrogen receptor positive (HCC) GURVINDER BONE DENSITOMETRY AXIAL SKELETON Routine 07/13/2017 from Last 3 Months or Most Recently Relevant to Health Maintenance Results * LACTATE DEHYDROGENASE (LD) (12/04/2024 3:25 PM TECHNICAL BUSINESS SYSTEMS ANALYST) Only the most recent of3 resultswithin the time period is included. LDH 147 140 - 271 U/L [facility] Blood 12/04/2024 3:25 PM TECHNICAL BUSINESS SYSTEMS ANALYST Narrative [facility] - 12/05/2024 8:48 AM TECHNICAL BUSINESS SYSTEMS ANALYST Release to patient->Immediate Ofelia Montero APRN, VACUUM CLOSING MACHINE OPERATOR CHEMISTRY ORDERABLES Final Result [facility] [place] [address], * (ABNORMAL) CMP (COMPREHENSIVE METABOLIC PANEL) (12/04/2024 3:25 PM TECHNICAL BUSINESS SYSTEMS ANALYST) Only the most recent of3 resultswithin the time period is included. Glucose 91 70 - 105 mg/dL [facility] Blood Urea Nitrogen 9 7 - 25 mg/dL [facility] Creatinine 0.8 0.6 - 1.2 mg/dL [facility] Sodium 130(L) 136 - 145 mEq/L [facility] Potassium 4.7 3.5 - 5.1 mEq/L [facility] Chloride 93(L) 98 - 107 mEq/L [facility] Bicarbonate 29 21 - 31 mEq/L [facility] Total Bilirubin 0.6 0.3 - 1.0 mg/dL [facility] Alk. Phosphatase 26(L) 34 - 104 U/L [facility] Aspartate Aminotransferase 17 13 - 39 U/L [facility] Alanine Aminotransferase 15 7 - 52 U/L [facility] Total Protein 6.2(L) 6.4 - 8.9 g/dL [facility] Albumin 4.4 3.5 - 5.7 g/dL [facility] Calcium 9.5 8.6 - 10.3 mg/dL [facility] Anion Gap 12.7 7.0 - 15.0 mEq/L [facility] Globulin 1.8(L) 2.0 - 3.5 g/dL [facility] EGFR 80 >60 ml/min/1. 73m2 [facility] Comment: This eGFR is calculated using 2020 CKD-EPI Creatinine equation without race modifier based on the NKF-ASN task force recommendations Blood 12/04/2024 3:25 PM TECHNICAL BUSINESS SYSTEMS ANALYST Narrative [facility] - 12/05/2024 8:48 AM TECHNICAL BUSINESS SYSTEMS ANALYST Release to patient->Immediate IS THE PATIENT REQUIRED TO BE FASTING FOR 8 HOURS?->No Ofelia Montero APRN, VACUUM CLOSING MACHINE OPERATOR CHEMISTRY ORDERABLES Final Result [facility]ORY MA[facility] [address] [place] [address], [place] [phone] * (ABNORMAL) COMPLETE BLOOD COUNT (CBC) WITH DIFF (12/04/2024 3:25 PM TECHNICAL BUSINESS SYSTEMS ANALYST) Only the most recent of3 resultswithin the time period is included. WBC 2.3(L) 4.0 - 10.0 10*3/uL [facility] HGB 12.2 11.2 - 15.7 g/dL [facility] HCT 36.3 34.1 - 44.9 % [facility]ITORY MANA[facility] PLT 290 163 - 369 10*3/uL [facility] MPV 9.1(L) 9.4 - 12.4 fL [facility]NA[facility] RBC 3.29(L) 3.93 - 5.22 10*6/uL [facility] TERRITORY MANAGER [facility] MCV 110(H) 79 - 95 fL [facility]ITORY MANAGER [facility] MCH 37.1(H) 25.6 - 32.2 pg [facility]ITORY MANA[facility] MCHC 33.6 32.2 - 36.5 g/dL [facility]NA[facility] RDW 12.5 11.6 - 14.4 % [facility] Absolute Neutrophil Count 1,201 cells/uL [facility] Absolute Seg Count 1,201(L) 1,440 - 6,600 cells/uL [facility] Absolute Lymph Count 970 760 - 4,000 cells/uL [facility] Absolute [place] Count 116(L) 160 - 1,200 cells/uL [facility] Absolute Baso Count 23 0 - 100 cells/uL [facility] Segmented Neutrophils 52 36 - 66 % [facility] Lymphocytes 42(H) 19 - 40 % [facility] Monocytes 5 4 - 12 % [facility] Basophils 1 0 - 1 % [facility] WBC Estimate Low [facility] Platelet Estimate Normal [facility] RBC Morphology Abnormal [facility] R [facility]ICAL [facility]ERRITORY MANAGER [facility] Macrocytosis 2+ [facility] Blood 12/04/2024 3:25 PM TECHNICAL BUSINESS SYSTEMS ANALYST Narrative [facility] - 12/05/2024 8:29 AM TECHNICAL BUSINESS SYSTEMS ANALYST Release to patient->Immediate Ofelia Montero APRN, VACUUM CLOSING MACHINE OPERATOR HEMATOLOGY ORDERABLES Final Result [facility] [place] [address], * CARCINOEMBRYONIC ANTIGEN (CEA) (12/04/2024 3:25 PM TECHNICAL BUSINESS SYSTEMS ANALYST) Only the most recent of3 resultswithin the time period is included. CEA 0.7 0.0 - 5.0 ng/mL [facility] Comment: Juany Paramagnetic Particle Chemiluminescent Immunoassay Method Blood 12/04/2024 3:25 PM TECHNICAL BUSINESS SYSTEMS ANALYST Narrative [facility] - 12/05/2024 1:44 PM TECHNICAL BUSINESS SYSTEMS ANALYST Release to patient->Immediate Ofelia Montreo APRN, VACUUM CLOSING MACHINE OPERATOR CHEMISTRY ORDERABLES Final Result Performing Organization Address City/[facility] Co de Phone Number [facility] Cancer Care [address] [address], * CANCER ANTIGEN (CA) 15-3 (12/04/2024 3:25 PM TECHNICAL BUSINESS SYSTEMS ANALYST) Only the most recent of3 resultswithin the time period is included. CA15-3 21.6 0.0 - 31.3 U/mL [facility] Comment: Juany Paramagnetic Particle Chemiluminescent Immunoassay Method Blood 12/04/2024 3:25 PM TECHNICAL BUSINESS SYSTEMS ANALYST Narrative [facility] - 12/05/2024 2:09 PM TECHNICAL BUSINESS SYSTEMS ANALYST Release to patient->Immediate Ofelia Montero APRN, VACUUM CLOSING MACHINE OPERATOR CHEMISTRY ORDERABLES Final Result Performing Organization Address [facility] Co de Phone Number [facility] Cancer Care [address] [address], [place] [phone] * GURVIDNER SCREENING BILATERAL DIGITAL W CAD (10/19/2020) Anatomical Region Laterality Modality breast Bilateral Mammography David QUINTEROG MAMMO ORDERABLES Final Result * GURVINDER BONE DENSITOMETRY AXIAL SKELETON (07/13/2017) Anatomical Region Laterality Modality BODY N/A Other Ruben Provider MD CANSECO DEXA ORDERABLES Final Result from Last 3 Months or Most Recently Relevant to Health Maintenance Insurance [facility] Care Teams Fuse Cup Expander Relationship Specialty Start Date End Date Roman Dempsey MD [address] [address] PCP - General Internal Medicine 10/07/15 David Cloud MD [address] [place] [phone] Consulting Physician Oncology 04/04/24 Yana Jonas, RN [place] Oncology Nurse Navigator Oncology 07/02/24 Joceline Phillip RN [place] Oncology Nurse Navigator Oncology 09/18/24
--- OUTSIDE RECORDS SUMMARY | 2024-12-15 12:34 | XMS_ITS | Clinical Summary ---
Author Organization [facility] Address [address] [facility] [place] [address] Care Team Providers Care Retort Fireman Name Role Phone Roman Dempsey MD Primary Care Provider [phone] Medications sulfamethoxazol e-trimethoprim (BACTRIM DS) 800-160 mg tablet Take 1 Tablet by mouth every 12 hours. 14 Tablet 07/07/2022 12:17 PM CDT 2 Active ospemifene (Osphena) 60 mg Tablet Take 60 mg by mouth daily. 90 Tablet 3 2 Active estradioL (ESTRACE) 0.01% (0.1 mg/g) vaginal cream USE VAGINALLY AT BEDTIME DIRECTED 2 TIMES PER WEEK 42.5 Gram 1 01/20/2023 10:57 AM CDT 2 Active rivaroxaban (Xarelto) 20 mg Tablet Take 1 Tablet (20 mg) by mouth daily with evening meal. 14 Tablet 10/15/2022 11:46 AM PAYROLL SECRETARY 2 Active ALPRAZolam (XANAX) 0.25 mg tablet Take 1 tablet before PET scan if needed. May repeat in 15 minutes if needed. Max daily dose of 1 mg. Use remaining pills for other upcoming tests. 10 Tablet 05/10/2023 3:30 PM CDT 3 Active albuterol sulfate HFA 90 mcg/actuation aerosol inhaler Inhale 2 puffs by mouth every 4 - 6 hours as needed for shortness of breath 8.5 Gram 3 06/01/2024 2:42 PM CDT 3 Active calcitonin, [place], (FORTICAL) 200 unit/actuation Fanrock, Non-Aerosol Administer 1 Fanrock in one nostril daily. Alternate nostril with each dose. 3.7 mL 6 07/08/2024 2:54 PM CDT 3 Active clobetasoL (TEMOVATE) 0.05 % Cream Apply thin layer to rash twice daily up to 4 weeks, then take a 2-week break (no face); once resolved, then use twice weekly for 6 months. 60 Gram 5 09/04/2024 11:50 AM PAYROLL SECRETARY 4 Active tacrolimus (PROTOPIC) 0.1 % Ointment Apply to rash twice daily until resolved, then apply twice a week for maintenance. 100 Gram 11 4 Active sulfaSALAzine (AZULFIDINE) 500 mg tablet Take 2 Tablets (1,000 mg) by mouth 2 times daily. 120 Tablet 6 04/17/2024 1:13 PM CDT 4 Active azithromycin (ZITHROMAX) 250 mg tablet Take 2 tablets by mouth on day 1, the 1 tablet by mouth on days 2-5 6 Tablet 03/28/2024 10:41 AM CDT 4 Active fluticasone propionate (FLONASE) 50 mcg/spray [place]rock, Suspension nasal inhaler Administer 1 spray in each nostril twice daily 48 Gram 03/28/2024 10:41 AM CDT 4 Active methylPREDNISol one (MEDROL DOSPACK) 4 mg Tablets, Dose Pack TAKE DIRECTED ON PACKAGE 21 Each 03/28/2024 10:41 AM CDT 4 Active ondansetron (ZOFRAN) 4 mg Tablet Take 1 Tablet (4 mg) by mouth every 6 hours as needed for nausea (1st line) 30 Tablet 3 05/22/2024 2:09 PM CDT 4 Active prochlorperazin e maleate (COMPAZINE) 10 mg tablet Take 1 Tablet (10 mg) by mouth every 4 hours as needed for nausea (2nd line) 30 Tablet 3 05/22/2024 2:09 PM CDT 4 Active metoprolol tartrate (LOPRESSOR) 25 mg tablet Take 1 Tablet (25 mg) by mouth 2 times daily. 180 Tablet 3 11/27/2024 12:30 PM PAYROLL SECRETARY 4 Active cyclobenzaprine (FLEXERIL) 5 mg Tablet Take 1 Tablet (5 mg) by mouth 3 times daily as needed. 20 Tablet 06/20/2024 2:39 PM CDT 4 Active DULoxetine (CYMBALTA) 30 mg Capsule, Delayed Release(E.C.) Take 1 capsule by mouth daily in the morning for one week, then take 2 capsules by mouth daily in the morning thereafter. 60 Capsule 6 07/08/2024 2:54 PM CDT 4 Active albuterol sulfate HFA 90 mcg/actuation aerosol inhaler INHALE 2 PUFFS BY MOUTH EVERY 4-6 HOURS NEEDED FOR SHORTNESS OF BREATH. 8.5 Gram 3 09/10/2024 3:02 PM PAYROLL SECRETARY 4 Active estradioL (ESTRACE) 0.01% (0.1 mg/g) vaginal cream Apply 0.5 grams to the vaginal area three times weekly 42.5 Gram 3 11/05/2024 12:34 PM PAYROLL SECRETARY 5 Active clobetasoL (TEMOVATE) 0.05 % Cream Apply a thin layer to the rash twice daily for up to 4 weeks, then take a 2 week break (no face); once resolved, use twice weekly for 6 months 60 Gram 5 11/18/2024 1:04 PM PAYROLL SECRETARY 5 Active Immunizations Immunization Administration Dates Next Due (PREVNAR 20)(6 WKS UP) PNEUM OCOCCAL CONJUGATE VACCINE 20-VALENT (PCV20), POLYSACCHARIDE [id number] CONJUGATE, ADJUVANT 0.5 ML (PF) IM 09/01/2023 Social History Tobacco Use Types Packs/Day Years Used Date Smoking Tobacco: Never Assessed Comments Unknown Sex and Gender Information Value Date Recorded Sex Assigned at Not on file Legal Sex Female 10:27 AM PAYROLL SECRETARY Gender Identity Not on file Sexual Orientation Not on file Plan of Treatment Health Maintenance Due Date Last Done Comments DTAP/TDAP/TD VACCINES (1 - Tdap) 1976 BREAST CANCER SCREENING 1997 FIT-DNA Q 3 years 2002 FIT/FOBT Q 1 year 2002 Flex Sig/CT Colonography Q 5 years 2002 ZOSTER VACCINE (1 of 2) 2007 INFLUENZA VACCINE (#1) 2024 COLORECTAL SCREENING 09/30/2028 09/30/2018 Colorectal Cancer Screening 09/30/2028 RSV VACCINE (60+ or ) (1 - 1-dose 75+ series) 2032 OSTEOPOROSIS SCREENING Completed 10/17/2019, 2016 PNEUMOCOCCAL VACCINE 65+ YEARS Completed 09/01/2023 Insurance [facility] MyDoc ACCESS CHOICE RX [employer] PLANS (INTERNAL) [facility] Plans RX ALLWIN DATA Medicare Part B RX OPTUM RX Member Subscriber Plan / Payer (Ef fective 2024-Present) Name:Araseli Correa Relation to Subscriber:Self Name:Araseli Correa Payer ID:Not on file Group ID:[id number] Type:RX Commercial Address: [address] Care Teams Retort Fireman Relationship Specialty Start Date End Date Roman Dempsey MD [address] [place] [id number] PCP - General Internal Medicine 05/14/19
--- OUTSIDE RECORDS SUMMARY | 2024-12-15 12:34 | XMS_ITS | Clinical Summary ---
Author Organization [facility] [address] Address [address] [place] [address] Care Team Providers Care Equip Tech Name Role Phone Roman Dempsey MD Primary [...] DOI 03/01/2023-[place]. [place]. [employer] remote home monitoring. Surgical History Surgery Date Site/Laterality Comments BREAST SURGERY Lumpectomy Sep 2013 SECTION Sep 18, 1985 TUBAL LIGATION 1992 Medical History Medical History Date Comments Arthritis Osteoporosis Cancer (CMS/HCC) (HCC) Aug 2013 Infectious viral hepatitis 1965 Family History Medical History Relation Name Comments Alcohol abuse Brother Alex Alzheimer's disease Father Sergio Diabetes Father Sergio Hypertension Father Sergio Arthritis Maternal Grandfather Ferd Miscarriages / Stillbirths Maternal Grandmother Susana ce Alcohol abuse Mother Marcia Arthritis Mother Marcia Miscarriages / Stillbirths Mother Marcia Alzheimer's disease Paternal Grandmother Lauren Diabetes Paternal Grandmother Lauren Miscarriages / Stillbirths Sister Jocelyn Moise Relation Name Status Comments Brother Alex Father Sergio Maternal Grandfather Fred Maternal Grandmother Sunni Mother Marcia Paternal Grandmother Lauren Sister Jocelyn Moise Social History Tobacco Use Types Packs/Day Years [...] on file Sexual Orientation Not on file Obstetrics History Last Filed Vital Signs Vital Sign Reading [...] 02/20/2024 10:44 AM CDT Plan of Treatment Health Maintenance Due Date Last Done Comments Colon Cancer Screening-Colonoscopy 1957 Depression Screening 1957 Fall Risk Assessment 1957 Hepatitis C Screening 1957 Hepatitis B Screening 1975 Lung Cancer Screening 2007 Zoster Vaccine (2 of 3) 11/03/2014 09/08/2014 Osteoporosis Screening-Bone Density Scan 07/02/2017 07/02/2015 Breast Cancer Screening-Mammogram 10/19/2021 020, 10/04/2018 Pneumococcal vaccine 65+ (1 of 1 - PCV) 2022 Well Visit 65+ 2022 Covid-19 Vaccine (3 - 2023-2 5 season) 2024 01/24/2021, 01/03/2021 Influenza Vaccine (#1) 2024 5, 08/25/2014, 05/05/2014, Additional history exists DTaP/Tdap/Td Vaccine (2 - Td or Tdap) 05/11/2027 05/11/2017 Insurance MEDICARE AETNA SENIOR SUPPLEMENT MEDICARE AETNA SENIOR SUPPLEMENT Care Teams Equip Tech Relationship Specialty Start Date End Date Roman Dempsey MD [address] [place] [address] PCP - General Emergency Medicine 12/12/19
--- OUTSIDE RECORDS SUMMARY | 2024-12-15 12:34 | XMS_ITS | Encounter Summary ---
Author Organization [facility] Address [address] [place] [address] Phone Care Team Providers Care Franchise Field Consultant Name Role Phone Roman Dempsey MD Primary Care Provider David Cloud MD Unavailable Carol Galindo RN Unavailable Unavailab Yana Leary RN Unavailable Unavailable Yana Jonas RN Unavailable Unavailable Joceline Phillip RN Unavailable Unavailable Encounter Details Date Type Department Care Team (Late st Contact Info) Description 03/25/2024 Telephone [facility] [address] [address] David Cloud MD [address] [place] [address] Social History Tobacco Use Types [...] * Telephone Encounter - Jennifer Menendez - 03/25/2024 9:14 AM CDT Pt called stated [facility] cancelled appt - they will reschedule with a breast surgeon for BX - pt does not have an appt yet - pt will call when she has procedure done to make a F/U appt documented in this encounter Plan of Treatment Upcoming Encounters Date Type Department Care Team (Late st Contact Info) Description 01/01/2025 11:15 AM DIRECTOR TECHNICAL Office Visit [facility] [address] [address] David Cloud MD [address] [place] [address] 01/01/2025 11:30 AM DIRECTOR TECHNICAL Clinical Support [facility] [address] [address] Nurse, Sydnee Garrett documented as of this encounter Visit Diagnoses Not on filedocumented in this encounter Additional Health Concerns Assessment Noted Time PHQ-9 Depression Total Score: 1 06/23/20 21 2:44 PM CDT documented as of this encounter Care Teams Franchise Field Consultant Relationship Specialty Start Date End Date Roman Dempsey MD [address] [place] [address] PCP - General Internal Medicine 10/07/15 David Cloud MD [address] [place] [address] Consulting Physician Oncology 04/04/24 Carol Galindo RN [place] Oncology Nurse Navigator Oncology 06/02/24 07/27/24 Yana Jonas RN [place] Registered Nurse 06/02/24 06/02/24 Yana Jonas RN [place] Oncology Nurse Navigator Oncology 07/02/24 Joceline Phillip, RN [place] Oncology Nurse Navigator Oncology 09/18/24 documented as of this encounter
== END 2024-12-15 09:48 | disposition home or self-care (01) ==
LOC: ANHLAB 09:49
PROVIDERS: PCP Emergency Medicine; Visit Provider Emergency Medicine
DX: E55.9 Vitamin D deficiency, unspecified (principal); E78.5 Hyperlipidemia, unspecified
CPT/HCPCS: 36415; 80053; 82306

== ENCOUNTER 2025-01-24 13:04 | Emergency (ER) | payer MEDICARE, SELFPAY ==
--- NOTE | 2025-01-24 13:05 | ED_ITS ---
HPI - URI/Sore Throat General Chief Complaint: Upper Respiratory Infection Stated Complaint: Sinus Infection Symptoms Time Seen by Provider: 01/24/25 13:05 Source: patient Mode of arrival: ambulatory Limitations: no limitations History of Present Illness HPI Narrative: Araseli is a 69-year-old female patient presenting to the clinic today with complaints of possible sinus infection. She reports she has had sinus pressure, cough, headache, nasal congestion, and sore throat for the last week. Had COVID 2 weeks ago and was having similar symptoms however over the last week her symptoms have gotten worse but she states that she does not feel as though she has her COVID symptoms still. Had taken Paxlovid and felt as though that improved her symptoms. Is having a lot of sinus pressure when bending forward. Has taken Sudafed and Flonase with mild relief. MD elicited complaint: sore throat and nasal congestion Related Data Home Medications ?Medication ?Instructions ?Recorded ?Confirmed ?Last Taken ?Type apixaban 5 mg tablet (Eliquis) 5 mg PO BID 12/15/22 12/26/24 02/26/23 07:00 History clobetasol 0.05 % topical ointment 1 applic topical QAM AND QPM 12/14/23 12/26/24 Unknown History fulvestrant 250 mg/5 mL 500 mg IM MONTHLY 06/20/24 12/26/24 Unknown History intramuscular syringe zoledronic acid 4 mg/5 mL 4 mg IV .COMPLEX 12/26/24 12/26/24 Unknown History intravenous solution Allergies Allergy/AdvReac Type Severity Reaction Status Date / Time clindamycin AdvReac Mild GI upset Verified 01/24/25 13:15 Review of Systems Review of Systems: Pertinent positives per HPI. Patient denies any fever, chills, rash, visual changes, dizziness, shortness of breath, chest pain, palpitations, nausea, vomiting, diarrhea, constipation, abdominal pain, or any urinary issues. [facility] Past Medical History Medical History Skin lesions Contact dermatitis Poison edgar dermatitis Dysphagia Acute sinusitis Multiple pulmonary nodules determined by computed tomography of lung Osteoarthritis of finger of left hand Acute maxillary sinusitis Joint pain in fingers of left hand History of breast cancer Cellulitis of right lower extremity Acute pain of left hip Acute left-sided low back pain without sciatica Atrial fibrillation Osteoporosis COPD (chronic obstructive pulmonary disease) Cancer Rheumatoid arthritis Monoclonal gammopathies Family History Family History Mother Family history of heart disease in male family member before age 55, Onset Age: 79 Patient's mother is Father Family history of heart disease in male family member before age 55, Onset Age: 81 Patient's father is Sibling Family history of lung cancer Other Alcoholism Anxiety Depression Diabetes mellitus Hypertension Social History Social History Smoking status: Former smoker Tobacco type: cigarettes Second hand tobacco smoke exposure: No Alcohol intake: current Drinks per week: 7 Substance use: never Substance use type: does not use Do You Feel Safe in your Home?: Yes Lack of Transportation: No Lack of Food: Never True Current Housing: I Have Housing Concerned About Future Housing: No Difficulty Paying Gas/Electric Bills: No Difficulty Paying for Meds: No Currently Unemployed: No Education: High School Diploma/GED Difficulty w/ Childcare or Family Care: No Living arrangements: with family Occupation/Education: retired Gender identity (if verbalized by the patient): Female Spiritual care concerns: No Agree to blood products: Yes Comments At the time of my signature, I reviewed and agree with the nursing past medical, surgical, social, and family history. There is no relevant family history pertinent to the patient complaint. Exam Narrative: General: Well-developed, well nourished, in no apparent distress Head: Normocephalic, atraumatic Eyes: Pupils equally round and reactive to light bilaterally, EOM intact, sclera and conjunctive clear, no discharge, lids normal Ears: TMs intact and congested, ear canals clear, no drainage, grossly hearing normal. Nose: Nares patent, yellow nasal discharge, moderate inflammation with white striae a in the right nare, maxillary and frontal sinus tenderness. Mouth: Oral pharynx red without lesions or masses, good dentition, MMM. Postnasal drip Neck: Supple, trachea midline, no enlargement of anterior or posterior cervical nodes, no thyroid masses or goiter palpable. Cardio: Regular rate and rhythm, s1 and s2 normal, no murmur appreciated. Resp: Clear to auscultation bilaterally, no rhonchi, rales, wheezing or rubs Course Course Emergency Course: Portions of this record may have been created with voice recognition software. Level of Care: Express Care Visit Vital Signs Vital signs: Vital Signs Temperature 37.1 C 01/24/25 13:14 Pulse Rate 66 01/24/25 13:14 Respiratory Rate 14 01/24/25 13:14 Blood Pressure 169/105 H 01/24/25 13:14 Pulse Oximetry 100 01/24/25 13:14 Oxygen Delivery Room Air 01/24/25 13:14 Temperature 37.1 C 01/24/25 13:14 Pulse Rate 66 01/24/25 13:14 Respiratory Rate 14 01/24/25 13:14 Blood Pressure 169/105 H 01/24/25 13:14 Pulse Oximetry 100 01/24/25 13:14 Oxygen Delivery Room Air 01/24/25 13:14 Vital signs reviewed MDM - URI/Sore Throat MDM Narrative Medical decision making narrative: At the time of visit patient is resting comfortably on the exam table. Patient appears to be nontoxic. Plan: I suspect patient has acute bacterial rhinosinusitis. Prescription for Augmentin and prednisone was sent to the pharmacy. Supportive measures were discussed with the patient and they voiced understanding discharge instructions and agrees to treatment plan. Return precautions reviewed Differential Diagnosis Differential diagnosis: Likely upper respiratory infection, otitis media, sinusitis, viral infection, bronchitis, influenza, pharyngitis and other (COVID) Discharge Plan Discharge Clinical Impression: Acute bacterial rhinosinusitis Patient Disposition: Home, Self-Care Condition: Stable Instructions: Antibiotic Form, Rhinosinusitis (ED) Additional Instructions: Take prescription medications only as prescribed-Augmentin and prednisone May take Coricidin HBP for cold/flu symptoms. Increase fluids and stay well hydrated Tylenol/motrin for pain/fever Flonase and OTC antihistamines as directed Vicks vapor rub to open sinuses Sinus rinses for congestion Cepacol spray, cough drops, throat lozenges, warm tea with honey/lemon, gargle salt water to soothe throat BRAT diet for diarrhea Clear liquids x 24 hours then advance as tolerated for nausea/vomiting Go to the ED if you develop a worsening in your condition- high fever not controlled by Tylenol or Motrin, dehydration, weakness, lethargy, shortness of breath, or chest pain. Follow up with your PCP in 3-5 days if symptoms persist. You have an elevated blood pressure in the clinic today and I recommend follow- up with primary care physician to have this reevaluated within the next week if symptoms persist. [place] [employer] guidelines state that normal blood pressure is 120/80 or less. Anything over 120/80 is considered elevated and should be monitored. You may need to decrease you salt intake and eat a heart healthy diet to help lower you blood pressure, other treatments would include decreasing stress, weight loss, stop caffeine, and quit smoking. Your primary care provider can determine whether you need to start antihypertensive medications. Untreated high blood pressure can cause dizziness, headaches, visual changes, blindness, kidney failure, stroke, heart attack, and male impotence. Patient Language: Citizen Of [place] Prescriptions: New prednisone 20 mg tablet 40 mg PO DAILY 5 Days Qty: 10 0RF amoxicillin-pot clavulanate 875-125 mg tablet 1 tablet PO Q12H 10 Days Qty: 20 0RF No Action clobetasol 0.05 % ointment 1 applic topical QAM AND QPM zoledronic acid 4 mg/5 mL solution 4 mg IV .COMPLEX Rx Instructions: 4 mg intravenously once quarterly; administer over at least 15 mins fluticasone propionate [Flonase Allergy Relief] 50 mcg/actuation spray,suspension 1 spray intranasal BID Qty: 48 2RF Rx Instructions: administer into each nostril Eliquis 5 mg tablet 5 mg PO BID fulvestrant 250 mg/5 mL syringe 500 mg IM MONTHLY Rx Instructions: may divide dose into 2 equally divided injections; one into each buttock metoprolol tartrate 25 mg tablet 12.5 mg PO BID Qty: 30 0RF Follow-up/Referrals: UNKNOWN,DOCTOR [Non-Staff] - Time of Disposition: 13:19 Quality NIHSS Nursing Documentation ED NIHSS nursing documentation: reviewed/agree
[2025-01-24 13:14] VITALS: BP 169/105; PULSE 66; RESP 14; TEMP 37.1; O2SAT 100
== END 2025-01-24 13:22 | disposition home or self-care (01) ==
PROVIDERS: Emergency Provider Nurse Practitioner Family
DX: J01.90 Acute sinusitis, unspecified (principal); B96.89 Other specified bacterial agents as the cause of diseases classified elsewhere; I48.91 Unspecified atrial fibrillation; J44.9 Chronic obstructive pulmonary disease, unspecified; M06.9 Rheumatoid arthritis, unspecified; Z85.3 Personal history of malignant neoplasm of breast; Z87.891 Personal history of nicotine dependence
CPT/HCPCS: 99213; G0463

== ENCOUNTER 2025-04-13 16:05 | Outpatient (CLI) | payer MEDICARE, SELFPAY ==
--- OUTSIDE RECORDS SUMMARY | 2025-04-13 17:01 | XMS_ITS | Encounter Summary ---
Author Organization [facility] Address [address] [place] [address] Phone Care Team Providers Care Corrections Lieutenant Name Role Phone Roman Dempsey MD Primary Care Provider [phone] David Cloud MD Unavailable [phone] Yana Jonas RN Unavailable Unavailable Joceline Phillip RN Unavailable Unavailable Encounter Details Date Type Department Care Team (Late st Contact Info) Description 02/02/2025 Telephone [facility] [address] [facility] [address] [place] [address] Ofelia Montero, ESTABLISHMENT GUIDE, GETTERER [address] [place] [address] Social History Tobacco Use Types Packs/Day Years Used Date Smoking Tobacco: Former Smokeless Tobacco: Never Comments:quit 5 years ago Alcohol Use Standard Drinks/Week Comments Not Currently 0 (1 standard drink = 0.6 oz [...] encounter Miscellaneous Notes * Telephone Encounter - Connie Flores - 02/02/2025 10:58 AM CDT This pt cancelled her Infusion on 02/26 stating she told you she was going to hold off on it. Just wanted to make sure that's correct and that it doesn't need to be added back on. Thank you documented in this encounter Plan of Treatment Upcoming Encounters Date Type Department Care Team (Late st Contact Info) Description 04/23/2025 11:30 AM CDT Office Visit [facility] [address] [address] David Cloud MD [address] [place] [address] 04/23/2025 11:45 AM CDT Clinical Support [facility] [address] [address] 06/11/2025 11:30 AM CDT Clinical Support [facility] [address] [address] documented as of this encounter Visit Diagnoses Not on filedocumented in this encounter Additional Health Concerns Assessment Noted Time PHQ-9 Depression Total Score: 1 06/23/20 21 2:44 PM CDT documented as of this encounter Care Teams Corrections Lieutenant Relationship Specialty Start Date End Date Roman Dempsey MD [address] [facility] [address] [place] [address] PCP - General Internal Medicine 10/07/15 David Cloud MD [address] [place] [address] Consulting Physician Oncology 04/04/24 Yana Jonas, RN ID Oncology Nurse Navigator Oncology 07/02/24 Joceline Phillip, DEBBIE ID Oncology Nurse Navigator Oncology 09/18/24 documented as of this encounter
--- OUTSIDE RECORDS SUMMARY | 2025-04-13 17:01 | XMS_ITS ---
Author Organization [facility] Address [address] [place] [address] Phone Care Team Providers Care Dowel Setting Machine Operator Name Role Phone Roman Dempsey MD Primary Care Provider [phone] David Cloud MD Unavailable Yana Jonas RN Unavailable Unavailable Joceline [...] 10/07/20 15 Current Treatment and Therapy Plans Retail - Palbociclib/Fulvestrant (FULVESTRANT FROM RETAIL) - Breast* Plan Start Date:05/21/2024 Plan Provider:David Cloud MD Linked Problems Malignant neoplasm of lower- inner quadrant of left female breast, unspecified estrogen receptor status (HCC) Treatment Medications Current Day (Day 1 , Cycle 12 - Planned for 03/25/2025) Next Day (Day 1, Cycle 13 - Planned for 05/17/2025) No medications scheduled. No medications schedul ed. No medications scheduled. 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 No medications schedul ed. Past Treatment and Therapy Plans No past plan information found.
--- OUTSIDE RECORDS SUMMARY | 2025-04-13 17:01 | XMS_ITS | Clinical Summary ---
Author Organization [facility] Address [address] [facility] [facility] [address] Care Team Providers Care Rip Machine Operator Name Role Phone Roman Dempsey MD Primary Care Provider [phone] Medications sulfamethoxazol e-trimethoprim (BACTRIM DS) 800-160 mg [...] evening meal. 14 Tablet 10/15/2022 11:46 AM ASSISTANT PRESSMAN 2 Active ALPRAZolam (XANAX) 0.25 mg tablet [...] 06/01/2024 2:42 PM CDT 3 Active calcitonin, Dawson, (FORTICAL) 200 unit/actuation [place], Non-Aerosol Administer 1 [place] in one nostril daily. Alternate nostril with each dose. 3.7 mL 6 07/08/2024 2:54 PM CDT 3 Active clobetasoL (TEMOVATE) 0.05 % Cream Apply thin layer to rash twice daily up to 4 weeks, then take a 2-week break (no face); once resolved, then use twice weekly for 6 months. 60 Gram 5 09/04/2024 11:50 AM ASSISTANT PRESSMAN 4 Active tacrolimus (PROTOPIC) 0.1 % Ointment [...] Tablet 03/28/2024 10:41 AM CDT 4 Active methylPREDNISol [...] daily. 180 Tablet 3 11/27/2024 12:30 PM ASSISTANT PRESSMAN 4 Active cyclobenzaprine (FLEXERIL) 5 mg Tablet Take 1 Tablet (5 mg) by mouth 3 times daily as needed. 20 Tablet 06/20/2024 2:39 PM CDT 4 Active DULoxetine (CYMBALTA) 30 mg Capsule, Delayed Release(E.C.) Take 1 capsule by mouth daily in the morning for one week, then take 2 capsules by mouth daily in the morning thereafter. 60 Capsule 6 02/24/2025 11:34 AM CDT 4 Active albuterol sulfate HFA 90 mcg/actuation aerosol inhaler INHALE 2 PUFFS BY MOUTH EVERY 4-6 HOURS NEEDED FOR SHORTNESS OF BREATH. 8.5 Gram 3 02/24/2025 11:34 AM CDT 4 Active estradioL (ESTRACE) 0.01% (0.1 mg/g) vaginal cream Apply 0.5 grams to the vaginal area three times weekly 42.5 Gram 3 01/31/2025 12:44 PM CDT 5 Active clobetasoL (TEMOVATE) 0.05 % Cream Apply a thin layer to the rash twice daily for up to 4 weeks, then take a 2 week break (no face); once resolved, use twice weekly for 6 months 60 Gram 5 11/18/2024 1:04 PM ASSISTANT PRESSMAN 5 Active HYDROcodone-hira taminophen (NORCO) 5-325 mg tablet Take 1 Tablet by mouth every 6 hours as needed for pain 20 Tablet 12/24/2024 1:20 PM ASSISTANT PRESSMAN 5 Active fluticasone propionate (FLONASE) 50 mcg/spray [place], Suspension nasal inhaler ADMINISTER 1 SPRAY IN EACH NOSTRIL TWICE DAILY. 48 Gram 2 01/06/2025 12:30 PM CDT 5 Active tiotropium (Spiriva Respimat) 1.25 mcg/actuation Mist Administer 2 puffs by mouth daily for COPD 4 Gram 5 5 Active umeclidinium (Incruse Ellipta) 62.5 mcg/actuation Disk with Device Take 1 Puff by inhalation daily. 30 Each 5 04/09/2025 3:07 PM CDT 5 Active Immunizations Immunization Administration Dates Next Due (PREVNAR 20)(6 WKS UP) PNEUM OCOCCAL CONJUGATE VACCINE 20-VALENT (PCV20), POLYSACCHARIDE TIO364 CONJUGATE, ADJUVANT 0.5 ML (PF) IM 09/01/2023 Social History Tobacco Use Types Packs/Day Years Used Date Smoking Tobacco: Never Assessed Comments Unknown Sex and Gender Information Value Date Recorded Sex Assigned at Not on file Legal Sex Female 10:27 AM ASSISTANT PRESSMAN Gender Identity Not on file Sexual Orientation Not on file Plan of Treatment Health Maintenance Due Date Last Done Comments DTAP/TDAP/TD VACCINES (1 - Tdap) 1976 FIT-DNA Q 3 years 2002 FIT/FOBT Q 1 year 2002 Flex Sig/CT Colonography Q 5 years 2002 ZOSTER VACCINE (1 of 2) 2007 BREAST CANCER SCREENING 10/19/2021 10/19/20, 10/19/2020, 10/17/2019, Additional history exists INFLUENZA VACCINE (#1) 2024 OSTEOPOROSIS SCREENING 10/17/2024 10/17/2019, 2016 COLORECTAL SCREENING 09/30/2028 09/30/2018 Colorectal Cancer Screening 09/30/2028 RSV VACCINE (60+ or ) (1 - 1-dose 75+ series) 2032 PNEUMOCOCCAL VACCINE 50+ YEARS Completed 09/01/2023 Insurance [facility] [employer] (INTERNAL) [facility] [employer] RX [employer] Medicare Part B RX [employer] RX Member Subscriber Plan / Payer (Ef fective 2024-Present) Name:Araseli Correa Relation to Subscriber:Self Name:Araseli Correa Payer ID:Not on file Group ID:[id number] Type:RX Commercial Address: [address] Care Teams Rip Machine Operator Relationship Specialty Start Date End Date Roman Dempsey MD [address] [phone] PCP - General Internal Medicine 05/14/19
--- OUTSIDE RECORDS SUMMARY | 2025-04-13 17:01 | XMS_ITS | Encounter Summary ---
Author Organization [facility] Address [address] [place] [address] Phone Care Team Providers Care Safety Aide Name Role Phone Roman Dempsey MD Primary Care Provider [phone] David Cloud MD Unavailable [phone] Carol Galindo RN Unavailable Unavailab Yana Leary RN Unavailable Unavailable Joceline Phillip RN Unavailable Unavailable Reason for Visit * Reason Onset Date Comments Other 07/17/2024 Canopy Call Encounter Details Date Type Department Care Team (Late st Contact Info) Description 07/17/2024 Telephone [facility] [address] [place] [address] David Cloud MD [address] [place] [phone] Other (Canopy Call ) Social History [...] Cloud MD Blunk, Jennifer A., RMA; Cc [facility] Nurse Pool40 minutes ago (11:52 AM) MW Ok to cont for now * Telephone Encounter - Leela Hercules RMA - 07/17/2024 4:34 PM CDT Pt needs to know if she should stop taking Calcitonin Chloride since she started Zometa today # [phone] Document on 07/17/2024 4:34 AM by David Cloud MD: General: Clinical question - Phone Nurse, and 1 call documented in this encounter Plan of Treatment Upcoming Encounters Date Type Department Care Team (Late st Contact Info) Description 04/23/2025 11:30 AM CDT Office Visit [facility] [address] [place] [phone] David Cloud MD [address] [place] [phone] 04/23/2025 11:45 AM CDT Clinical Support [facility] [address] [place] [phone] 06/11/2025 11:30 AM CDT Clinical Support [facility] [address] [place] [address] documented as of this encounter Visit Diagnoses Not on filedocumented in this encounter Additional Health Concerns Assessment Noted Time PHQ-9 Depression Total Score: 1 06/23/20 21 2:44 PM CDT documented as of this encounter Care Teams Safety Aide Relationship Specialty Start Date End Date Roman Dempsey MD [address] [place] [address] PCP - General Internal Medicine 10/07/15 David Cloud MD [address] [place] [phone] Consulting Physician Oncology 04/04/24 Carol Galindo, [place] Oncology Nurse Navigator Oncology 06/02/24 07/27/24 Yana Jonas, [place] Oncology Nurse Navigator Oncology 07/02/24 Joceline Phillip, [place] Oncology Nurse Navigator Oncology 09/18/24 documented as of this encounter
--- OUTSIDE RECORDS SUMMARY | 2025-04-13 17:01 | XMS_ITS | Clinical Summary ---
Author Organization [facility] Address [address], [facility] [address] [place] [address] Phone Care Team Providers Care Commercial Subcontractor Name Role Phone Roman Dempsey MD Primary Care Provider David Cloud MD Unavailable [phone] Yana Jonas RN Unavailable Unavailable Joceline Phillip RN Unavailable Unavailable Allergies No known active allergies Medications Multiple Minerals-Vitami ns (NUTRA-SUPPORT BONE PO) Take by mouth. Reported on 11/09/2016 Active Cholecalciferol (VITAMIN D PO) Take 1.25 mg by mouth. Active metoprolol tartrate (LOPRESSOR) 25 MG Tablet 1/2 tab twice day 3 Active estradiol (ESTRACE) 0.1 MG/GM Cream USE VAGINALLY AT BEDTIME 2 TIMES PER WEEK 2 Active albuterol 108 (90 Base) MCG/ACT Aerosol [...] Take 5 mg by mouth. 2 Active traMADol (ULTRAM) 50 MG Tablet Take 50 mg by mouth. Active ondansetron (Zofran) 4 MG Tablet Take 1 Tablet by mouth every 6 hours as needed for Nausea - 1st line. 30 Tablet 3 4 Active Additional Information Patient not taking.Reported on 03/26/2025 prochlorperazin e (COMPAZINE) 10 MG Tablet Take 1 Tablet by mouth every 4 hours as needed for Nausea - 2nd line. 30 Tablet 3 4 Active Additional Information Patient not taking.Reported on 03/26/2025 fluticasone (FLONASE) 50 MCG/ACT Suspension Administer 1 spray in each nostril twice daily 4 Active tacrolimus (PROTOPIC) 0.1 % Ointment 4 Active Fulvestrant (Faslodex) 250 MG/5ML Solution Prefilled Syringe 10 mL by Intramuscular route every 28 days. 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 Take one tablet by mouth once daily on days 1-21 of each 28 day treatment cycle. Swallow tablets whole. Avoid grapefruit. Indications: Hormone Receptor-Positive , HER2 Negative Breast Cancer 21 Tablet 5 5 Active ALPRAZolam (XANAX) 0.25 MG TabletIndicatio ns:Malignant neoplasm of lower-inner quadrant of left breast in female, estrogen receptor positive (HCC),Carcinoma of breast metastatic to bone, unspecified laterality (HCC),Lymphaden opathy Take 1 Tablet by mouth 2 times daily as needed for Anxiety. 10 Tablet 5 Active Active Problems Patient Care Coordination No te Formatting of this note migh t be different from the original. UNENROLLED FROM PCM 11/12/2024 PCM consent signed 05/22/24 For additional billing time breakdown, see [facility] auditing report. 11/11/2024 WELLNESS F/U & CAREPLAN REVIEW-19 Minutes PCM drops: .2023 TOTAL PCM TIME: 59 MINUTES PCM DROP: 30 MINUTES TOTAL PCM TIME: 28 MINUTES PCM DROP: 0 MINUTES TOTAL PCM TIME: 31 MINUTES PCM DROP: 30 MINUTES TOTAL PCM TIME: 39 MINUTES PCM DROP: 30 MINUTES TOTAL PCM TIME: 82 MINUTES PCM DROP: 60 MINUTES TOTAL PCM TIME: 7 MINUTES PCM DROP: 0 MINUTES Problem Noted Date Diagnosed Date Elevated blood pressure reading 10/09/2024 Breast cancer screening 06/13/2018 Monoclonal gammopathy 04/06/2016 Malignant neoplasm of lower- inner quadrant of left female breast 10/07/2015 Osteoporosis due to aromatase inhibitor 10/07/20 15 Encounters Date Type Department Care Team Description 03/26/2025 12:00 PM CDT Clinical Support [facility] [place] [address] [phone] Nurse, [facility] Malignant neoplasm of lower-inner quadrant of left female breast, unspecified estrogen receptor status (HCC) (Primary Dx) 03/26/2025 11:45 AM CDT Office Visit [facility] [address] [phone] David Cloud MD Monoclonal gammopathy (Primary Dx); Encounter for screening mammogram for malignant neoplasm of breast; Elevated blood pressure reading 03/26/2025 Travel 03/19/2025 11:30 AM CDT Clinical Support [facility] [place] [address] [address] Malignant neoplasm of lower-inner quadrant of left breast in female, estrogen receptor positive (HCC) (Primary Dx) 03/19/2025 Travel 02/26/2025 12:00 PM CDT Clinical Support [facility] [address] [address] Nurse, [facility] Malignant neoplasm of lower-inner quadrant of left female breast, unspecified estrogen receptor status (HCC) (Primary Dx) 02/26/2025 11:45 AM CDT Office Visit [facility] [address] [phone] David Cloud MD Malignant neoplasm of lower-inner quadrant of left breast in female, estrogen receptor positive (HCC) (Primary Dx); Carcinoma of breast metastatic to bone, unspecified laterality (HCC); Lymphadenopathy 02/26/2025 Travel 02/02/2025 Telephone [facility] [place] [address] [phone] Ofelia Montero, SUSTAINABLE AGRICULTURE SPECIALIST, BOX TRUCK DRIVER 01/29/2025 1:30 PM CDT Clinical Support [facility] [address] [phone] Nurse, [facility] Malignant neoplasm of lower-inner quadrant of left female breast, unspecified estrogen receptor status (HCC) (Primary Dx) 01/29/2025 1:15 PM CDT Office Visit [facility] [id number] [place] [phone] David Cloud MD Beasley, Kelsey D, SUSTAINABLE AGRICULTURE SPECIALIST, BOX TRUCK DRIVER Malignant neoplasm of lower-inner quadrant of left breast in female, estrogen receptor positive (HCC) (Primary Dx) 01/29/2025 Travel 01/22/2025 12:00 PM CDT Clinical Support [facility] [id number] [place] [phone] Nurse, [facility] Malignant neoplasm of lower-inner quadrant of left breast in female, estrogen receptor positive (HCC) (Primary Dx) 01/22/2025 Travel 01/12/2025 Telephone [facility] [address] [phone] David Cloud MD [facility] call / Covid from Last 3 Months Immunizations Immunization Administration Dates Next Due Covid-19, Mrna, Lnp-s, Pf, 30 Mcg/0.3 Ml Dose (P fizer) 01/24/2021,01/03/2021 TDAP Vaccine 05/11/2017 Zoster Vaccine, live [...] Sign Reading Time Taken Comments Blood Pressure 128/64 03/26/2025 12:12 PM CDT Pulse 58 03/26/2025 12:12 PM CDT Temperature 36.7 C (98 F) 03/26/2025 12:12 PM CDT Respiratory Rate 18 03/26/2025 12:12 PM CDT Oxygen Saturation 98% 03/26/2025 12:12 PM CDT Inhaled Oxygen Concentration - - Weight 71.3 kg (157 lb 3.2 oz) 03/26/2025 12:12 PM CDT Height 167.6 cm (5' 6) 03/26/2025 12:12 PM CDT Body Mass Index 25.37 03/26/2025 12:12 PM CDT Plan of Treatment Upcoming Encounters Date Type Department Care Team (Late st Contact Info) Description 04/23/2025 11:30 AM CDT Office Visit [facility] [address] [place] [phone] David Cloud MD [address] [place] [phone] 04/23/2025 11:45 AM CDT Clinical Support [facility] [address] [address] [place] [phone] 06/11/2025 11:30 AM CDT Clinical Support [facility] [address] [address] [phone] Health Maintenance Due Date Last Done Comments Cologuard 2002 Colonoscopy 2002 Colorectal Cancer Screening 2002 Immunochemical Fecal Occult Blood 2002 Zoster Immunization (1 of 2) 11/03/2014 09/08/2014 DEXA Bone Density 07/13/2019 07/13/2017, 07/02/2015 Mammogram 10/19/2021 10/19/2020, 09/29, 10/17/2019, Additional history exists SARS-COV-2 Immunization (9 - Pfizer risk season) 2025 07/18/2024, 08/19/2023, 02/20/2023, Additional history exists Influenza Immunization (Season Ended) 2025 Td Immunization Every 10 Years (Adults With 1 Tdap) 05/11/2027 05/11/2017 DTaP/Tdap/Td Immunization Discontinued 05/11/2017 Hepatitis C Virus (HCV) Screening Completed 08/29/2019, 03/28/2019 Respiratory Syncytial Virus (RSV) Immunization (Adult) Completed 08/25/2023 Pneumococcal Immunization (50+ years) Completed 09/01/2023 Pneumococcal Immunization Combined Discontinued 09/01/2023 Hepatitis B Immunization Aged Out No longer eligible based on patient's age to complete this topic Human Papillomavirus (HPV) Immunization Aged Out No longer eligible based on patient's age to complete this topic Meningococcal Immunization (ACWY) Aged Out No longer eligible based on patient's age to complete this topic Rotavirus Immunization Aged Out No lo nger eligible based on patient's age to complete this topic Procedures Procedure Name Priority Date/Time Associated Diagnosis Comments CANCER ANTIGEN (CA) 15-3 Routine 025 12:30 PM CDT CARCINOEMBRYONIC ANTIGEN (CEA) Routine 02/26/2025 12:30 PM CDT LACTATE DEHYDROGENASE (LD) Routine 02/26/2025 12:30 PM CDT Malignant neoplasm of lower-inner quadrant of left breast in female, estrogen receptor positive (HCC) Carcinoma of breast metastatic to bone, unspecified laterality (HCC) Lymphadenopathy CMP (COMPREHENSIVE METABOLIC PANEL) Routine 02/26/2025 12:30 PM CDT Malignant neoplasm of lower-inner quadrant of left breast in female, estrogen receptor positive (HCC) Carcinoma of breast metastatic to bone, unspecified laterality (HCC) Lymphadenopathy COMPLETE BLOOD COUNT (CBC) WITH DIFF Routine 02/26/2025 12:30 PM CDT Malignant neoplasm of lower-inner quadrant of left breast in female, estrogen receptor positive (HCC) Carcinoma of breast metastatic to bone, unspecified laterality (HCC) Lymphadenopathy COMPLETE BLOOD COUNT (CBC) WITH DIFF Routine 01/29/2025 3:54 PM CDT Malignant neoplasm of lower-inner quadrant of left breast in female, estrogen receptor positive (HCC) CMP (COMPREHENSIVE METABOLIC PANEL) Routine 01/29/2025 3:54 PM CDT Malignant neoplasm of lower-inner quadrant of left breast in female, estrogen receptor positive (HCC) GURVINDER SCREENING BILATERAL DIGITAL W CAD Routine 10/19/2020 Malignant neoplasm of lower-inner quadrant of left breast in female, estrogen receptor positive (HCC) GURVINDER BONE DENSITOMETRY AXIAL SKELETON Routine 07/13/2017 from Last 3 Months or Most Recently Relevant to Health Maintenance Results * (ABNORMAL) LACTATE DEHYDROGENASE (LD) (02/26/2025 12:30 PM CDT) LDH 132(L) 140 - 271 U/L [facility] Blood 02/26/2025 12:3 0 PM CDT Narrative [facility] - 02/26/2025 4:29 PM CDT Release to patient->Immediate David Cloud MD CHEMISTRY ORDERABLES Final Result [facility] [place] [address], [place] [phone] * (ABNORMAL) CMP (COMPREHENSIVE METABOLIC PANEL) (02/26/2025 12:30 PM CDT) Only the most recent of2 resultswithin the time period is included. Glucose 100 70 - 105 mg/dL [facility] Blood Urea Nitrogen 9 7 - 25 mg/dL [facility] Creatinine 0.7 0.6 - 1.2 mg/dL [facility] Sodium 132(L) 136 - 145 mEq/L [facility] Potassium 4.1 3.5 - 5.1 mEq/L [facility] Chloride 99 98 - 107 mEq/L [facility] Bicarbonate 28 21 - 31 mEq/L [facility] Total Bilirubin 0.5 0.3 - 1.0 mg/dL [facility] Alk. Phosphatase 23(L) 34 - 104 U/L [facility] Aspartate Aminotransferase 17 13 - 39 U/L [facility] Alanine Aminotransferase 12 7 - 52 U/L [facility] Total Protein 6.4 6.4 - 8.9 g/dL [facility] Albumin 4.7 3.5 - 5.7 g/dL [facility] Calcium 9.8 8.6 - 10.3 mg/dL [facility] Anion Gap 9.1 7.0 - 15.0 mEq/L [facility] Globulin 1.7(L) 2.0 - 3.5 g/dL [facility] EGFR 94 >60 ml/min/1. 73m2 [facility] Comment: This eGFR is calculated using 2020 CKD-EPI Creatinine equation without race modifier based on the NKF-ASN task force recommendations Equation: rEAZ=844*min(SCr/k,1)a*max(SCr/k,1)-1.200*0.9938Age*1.012 (if female), where SCr is serum creatinine, k is 0.7 for females and 0.9 for males, and a is -0.241 for females and -0.302 for males Blood 02/26/2025 12:3 0 PM CDT Narrative [facility] - 02/26/2025 4:29 PM CDT Release to patient->Immediate IS THE PATIENT REQUIRED TO BE FASTING FOR 8 HOURS?->No David Cloud MD CHEMISTRY ORDERABLES Final Result [facility] [place] [address], * (ABNORMAL) COMPLETE BLOOD COUNT (CBC) WITH DIFF (02/26/2025 12:30 PM CDT) Only the most recent of2 resultswithin the time period is included. WBC 1.5(L) 4.0 - 10.0 10*3/uL [facility] HGB 11.7 11.2 - 15.7 g/dL [facility] HCT 34.3 34.1 - 44.9 % [facility] PLT 282 163 - 369 10*3/uL [facility] MPV 9.6 9.4 - 12.4 fL [facility] RBC 3.08(L) 3.93 - 5.22 10*6/uL [facility] MCV 111(H) 79 - 95 fL [facility] MCH 38.0(H) 25.6 - 32.2 pg [facility] MCHC 34.1 32.2 - 36.5 g/dL [facility] RDW 12.4 11.6 - 14.4 % [facility] Absolute Neutrophil Count 617 cells/uL [facility] Absolute Seg Count 617(L) 1,440 - 6,600 cells/uL [facility] Absolute Lymph Count 720(L) 760 - 4,000 cells/uL [facility] Absolute Izard Count 103(L) 160 - 1,200 cells/uL [facility] Absolute Baso Count 29 0 - 100 cells/uL [facility] Segmented Neutrophils 42 36 - 66 % [facility] Lymphocytes 44(H) 19 - 40 % [facility] C [facility] Monocytes 7 4 - 12 % [facility] [place] [facility] Basophils 2(H) 0 - 1 % [facility] [place] [address] [facility] Atypical Lymphs 5(H) 0 - 2 % [facility]C ER [facility] WBC Estimate Low [facility] Platelet Estimate Normal CA NCER [facility] RBC Morphology Abnormal CANCE R [facility] Macrocytosis 2+ [facility] Poikilocytosis 1+ CANCE R [facility] Large Platelets Present CAN ER [facility] Blood 02/26/2025 12:3 0 PM CDT Narrative [facility] - 02/27/2025 10:03 AM CDT Release to patient->Immediate us David Cloud MD HEMATOLOGY ORDERABLES Final Result Performing Organization Address [facility]/ZIP Co de Phone Number [facility] [place] [address] [place] [address], [place] [phone] * CARCINOEMBRYONIC ANTIGEN (CEA) (02/26/2025 12:30 PM CDT) CEA 1.5 0.0 - 5.0 ng/mL [facility] Comment: Juany Paramagnetic Particle Chemiluminescent Immunoassay Method 02/26/2025 12:3 0 PM CDT us David Cloud MD CHEMISTRY ORDERABLES Final Result Performing Organization Address [facility] Co de Phone Number [facility] [address] [place] [address], [place] [phone] * CANCER ANTIGEN (CA) 15-3 (02/26/2025 12:30 PM CDT) CA15-3 21.4 0.0 - 31.3 U/mL [facility] Comment: Juany Paramagnetic Particle Chemiluminescent Immunoassay Method 02/26/2025 12:3 0 PM CDT us David Cloud MD CHEMISTRY ORDERABLES Final Result Performing Organization Address [facility] Co de Phone Number [facility] [address] [place] [address], [place] [phone] * GURVINDER SCREENING BILATERAL DIGITAL W CAD (10/19/2020) Anatomical Region Laterality Modality breast Bilateral Mammography us David Cloud MD IMG MAMMO ORDERABLES Final Result * GURVINDER BONE DENSITOMETRY AXIAL SKELETON (07/13/2017) Anatomical Region Laterality Modality BODY N/A Other us Historical Provider MD CANSECO DEXA ORDERABLES Final Result from Last 3 Months or Most Recently Relevant to Health Maintenance Insurance MEDIC[place] [id number] Care Teams Commercial Subcontractor Relationship Specialty Start Date End Date Roman Dempsey MD [address] [facility] [address] [place] [address] PCP - General Internal Medicine 10/07/15 David Cloud MD [address] [place] [address] Consulting Physician Oncology 04/04/24 Yana Jonas, RN DC Oncology Nurse Navigator Oncology 07/02/24 Joceline Phillip RN DC Oncology Nurse Navigator Oncology 09/18/24
--- OUTSIDE RECORDS SUMMARY | 2025-04-13 17:01 | XMS_ITS | Clinical Summary ---
Author Organization [facility] Address [address] [place] [address] Care Team Providers Care Riprap Placer Name Role Phone Roman Dempsey MD Primary Care Provider [phone] Allergies No known active allergies Medications albuterol [...] 7 Day Supply 20 tablet 5 Active HYDROcodone-hira taminophen (NORCO) 5-325 MG tabletIndicatio ns:Acute Pain < 7 Day Supply Take 1 tablet by mouth every 6 (six) hours as needed. Indications: Acute Pain < 7 Day Supply 20 tablet 5 Active Active Problems Problem Noted Date Diagnosed Date Lumbar facet arthropathy 08/28/2024 Encounters Date Type Department Care Team Description 03/26/2025 2:22 PM CDT - 03/26/2025 11:59 PM CDT Hospital Encounter [facility] [address] [place] [address] Merced Cloud MD Discharge Disposition: Home or Self Care (Routine Discharge) 03/26/2025 Orders Only [facility] [address] [place] [address] Merced Cloud MD 03/20/2025 9:52 AM CDT - 03/20/2025 11:59 PM [place] [address] [place] [address] Merced Cloud MD Discharge Disposition: Home or Self Care (Routine Discharge) 03/20/2025 Travel 03/09/2025 11:30 AM CDT - 03/09/2025 11:59 PM CDT Hospital Encounter [facility] [place] [address] Merced Cloud MD Discharge Disposition: Home or Self Care (Routine Discharge) 03/09/2025 Travel from Last 3 Months Immunizations Immunization Administration Dates Next Due PFIZER COVID-19 (ORIGINAL FO RMULATION, PURPLE CAP) mRNA, LNP-S, PF, 30 MCG/0.3 ML DOSE 01/24/2021,01/03/2021 Social History Tobacco Use Types Packs/Day Years Used Date Smoking Tobacco: Former Cigarettes Q uit: 2019 Smokeless Tobacco: Never Tobacco Cessation:Counseling Given: Not Answered Comments No Sex and Gender Information Value Date Recorded Sex Assigned at Female 11/25/2024 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 Sex Female 4:09 PM CDT Gender Identity Not on file Sexual Orientation Not on file Last Filed Vital Signs Vital Sign Reading Time Taken Comments Blood Pressure 140/66 01/10/2025 12:55 PM CDT Pulse 70 01/10/2025 12:55 PM CDT Temperature 37.1 C (98.8 F) 01/10/2025 12:55 PM CDT Respiratory Rate 18 01/10/2025 12:55 PM CDT Oxygen Saturation 100% 01/10/2025 12:55 PM CDT Inhaled Oxygen Concentration - - Weight 70 kg (154 lb 5.2 oz) 01/10/2025 12:55 PM CDT Height 167.6 cm (5' 6) 01/10/2025 12:55 PM CDT Body Mass Index 24.91 01/10/2025 12:55 PM CDT Plan of Treatment Health Maintenance Due Date Last Done Comments Colorectal Cancer Screening Colonoscopy (10 Years) 1955 Zoster Vaccines (1 of 2) 11/03/2014 09/08/2014 RSV Immunization or 60+ Years (1 - Risk 60-74 years 1-dose series) 2017 COVID-19 Vaccine (3 - Pfizer risk series) 02/21/2021 01/24/2021, 01/03/2021 Annual Medicare Wellness Visit 2022 Mammogram Screening 10/19/2022 10/19/2020, 10/04/2018, 07/02/2015 DTaP, Tdap and Td Vaccines ( 2 - Td or Tdap) 05/11/2027 05/11/2017 Dexa Scan (General) Completed 07/13/2017, 07/02/2015 Hepatitis C Completed 08/29/2019, 03/28/2019 Pneumococcal Vaccine: 50+ Years Completed 09/01/2023 Meningococcal B Vaccine Aged Out No l onger eligible based on patient's age to complete this topic Meningococcal Vaccine Aged Out No lyubov marielena eligible based on patient's age to complete this topic RSV Immunizations Under 20 Months Aged Out No longer eligible b ased on patient's age to complete this topic Procedures Procedure Name Priority Date/Time Associated Diagnosis Comments CBC W/DIFF AUTOMATED Routine 03/26/2025 12:29 PM CDT Monoclonal gammopathy Encounter for screening mammogram for malignant neoplasm of breast Elevated blood pressure reading COMPREHENSIVE METABOLIC PANEL Routine 03/26/2025 12:29 PM CDT Monoclonal gammopathy Encounter for screening mammogram for malignant neoplasm of breast Elevated blood pressure reading LDH, LACTATE DEHYDROGENASE Routine 03/26/2025 12:29 PM CDT Monoclonal gammopathy Encounter for screening mammogram for malignant neoplasm of breast Elevated blood pressure reading CT CHEST+ABD+PEL W CON Routine 03/20/2025 10:18 AM CDT Malignant neoplasm of lower-inner quadrant of left breast in female, estrogen receptor positive (CMS/HCC HHS/HCC) Carcinoma of breast metastatic to bone, unspecified laterality (CMS/HCC HHS/HCC) Lymphadenopathy NM BONE SCAN WHOLE BODY WO SPECT Routine 03/09/2025 2:05 PM CDT Malignant neoplasm of lower-inner quadrant of left breast in female, estrogen receptor positive (CMS/HCC HHS/HCC) Carcinoma of breast metastatic to bone, unspecified laterality (CMS/HCC HHS/HCC) Anterior cervical lymphadenopathy HEPATITIS C ANTIBODY Routine 08/29/2019 11:46 AM CDT Special screening examination for viral disease Encounter for therapeutic drug monitoring from Last 3 Months or Most Recently Relevant to Health Maintenance Results * (ABNORMAL) COMPREHENSIVE METABOLIC PANEL (03/26/2025 12:29 PM CDT) [facility] GLUCOSE 93 70 - 99 MG/DL 03/26/2025 2:50 PM CDT [facility] BUN 7 7 - 18 MG/DL 03/26/2025 2:50 PM CDT [facility] CREATININE S/P/B 0.75 0.55 - 1.02 MG/DL 03/26/2025 2:50 PM CDT [facility] SODIUM S/P/B 132(L) 136 - 145 MMOL/L 03/26/2025 2:50 PM CDT [facility] POTASSIUM S/P/B 4.2 3.5 - 5.1 MMOL/L 03/26/2025 2:50 PM CDT [facility] CHLORIDE S/P/B 96(L) 100 - 108 MMOL/L 03/26/2025 2:50 PM T [facility] CO2 29.4 21 - 32 MMOL/L 03/26/2025 2:50 PM CDT [facility] CALCIUM S/P/B 9.9 8.5 - 10.1 MG/DL 03/26/2025 2:50 PM CDT [facility] BILIRUBIN TOTAL S/P/B 0.5 0.2 - 1.2 MG/DL 03/26/2025 2:50 PM CDT [facility] TOTAL PROTEIN S/P/B 6.9 6.4 - 8.2 G/DL 03/26/2025 2:50 PM CDT [facility] ALBUMIN S/P/B 4.3 3.4 - 5.0 G/DL 03/26/2025 2:50 PM CDT [facility] AST 20 15 - 37 U/L 03/26/2025 2:50 PM CDT [facility] ALT 21 14 - 55 U/L 03/26/2025 2:50 PM CDT [facility] ALKALINE PHOSPHATASE S/P/B 35(L) 50 - 136 U/L 03/26/2025 2:50 PM CDT [facility] ANION GAP 6.6 5 - 15 MMOL/L 03/26/2025 2:50 PM CDT [facility] BUN CREATININE RATIO 9.3 6 - 26 03/26/2025 2:50 PM T [facility] A/G RATIO 1.7 1.0 - 2.0 RATIO 03/26/2025 2:50 PM CDT [facility] GFR ESTIMATE 87(L) >90 ML/MIN/1.7 3 M2 03/26/2025 2:50 PM CDT [facility] Comment: NOTE: eGFR is not calculated for patients <18 years of age. This is an estimated GFR calculation using the new CKD EPI creatinine equation without race and so does not require a correction factor for race. This estimated GFR should not be used for calculating drug doses. 03/26/2025 12:2 9 PM CDT us Merced Cloud MD LABORATORY Final Resul t [facility] [address] [place] [address], * LDH, LACTATE DEHYDROGENASE (03/26/2025 12:29 PM CDT) LDH 180 84 - 246 UNITS/L 03/26/2025 2:50 PM CDT [facility] 03/26/2025 12:2 9 PM CDT us Merced Cloud MD LABORATORY Final Resul t [facility] [address] [place] [address], [place] [phone] * (ABNORMAL) CBC W/DIFF AUTOMATED (03/26/2025 12:29 PM CDT) WBC 3.06(L) 4.4 - 11.0 x10'3/uL 03/26/2025 2:36 PM CDT [facility] RBC 3.21(L) 4.50 - 5.10 x10'6/uL 03/26/2025 2:36 PM CDT [facility] HGB 12.1(L) 12.3 - 15.3 G/DL 03/26/2025 2:36 PM CDT [facility] HCT 35.4(L) 35.9 - 44.6 % 03/26/2025 2:36 PM CDT [facility] MCV 110.3(H) 80.0 - 96.0 FL 03/26/2025 2:36 PM CDT [facility] MCH 37.7(H) 25.3 - 30.9 PG 03/26/2025 2:36 PM CDT [facility] MCHC 34.2(H) 31.0 - 34.1 G/DL 03/26/2025 2:36 PM CDT [facility] RDW 12.5 12.4 - 15.1 % 03/26/2025 2:36 PM CDT [facility] PLT 288 151 - 353 x10'3/uL 03/26/2025 2:36 PM CDT [facility] MPV 9.4(L) 9.6 - 12.0 FL 03/26/2025 2:36 PM CDT [facility] RBC MORPHOLOGY NORMAL 03/26/2025 2:36 PM CDT [facility] PLT MORPH. NORMAL 03/26/2025 2:36 PM CDT [facility] WBC MORPHOLOGY NORMAL 03/26/2025 2:36 PM CDT [facility] LYMPHOCYTES % 40.2 15.8 - 45.0 % 03/26/2025 2:36 PM CDT [facility] NEUTROPHILS % 48.6 42.1 - 71.9 % 03/26/2025 2:36 PM CDT [facility] MONOCYTES % 7.2 5.7 - 12.5 % 03/26/2025 2:36 PM CDT [facility] EOSINOPHILS 1.0 0.0 - 5.6 % 03/26/2025 2:36 PM CDT [facility] BASOPHILS 2.0(H) 0.0 - 1.3 % 03/26/2025 2:36 PM CDT [facility] ABS. NEUTROPHILS 1.49 1.40 - 6.00 x10'3/uL 03/26/2025 2:36 PM CDT [facility] IMMATURE GRANS % 1.0(H) 0.0 - 0.5 % 03/26/2025 2:36 PM CDT [facility] ABS. LYMPHOCYTES 1.23 0.80 - 4.70 x10'3/uL 03/26/2025 2:36 PM CDT [facility] 03/26/2025 12:2 9 PM CDT us Merced Cloud MD LABORATORY Final Resul t [facility] [address] [place] [address], * CT CHEST+ABD+PEL W CON (03/20/2025 10:18 AM CDT) Anatomical Region Laterality Modality Chest, Abdomen, Pelvis Computed Tomography 03/26/2025 5:43 AM CDT Impressions 03/26/2025 5:52 AM CDT IMPRESSION:===== Multiple bilateral pulmonary nodules, stable to improved. No new lesions or adenopathy in CAP. Diffuse metastasis in bones. See recent bone scan. Referred By: MERCED CLOUD Interpreted By: Nate Hunter MD, 03/26/2025 5:43 AM Narrative 03/26/2025 5:52 AM CDT [facility] [address] [facility] [place] [address] Examination: CT CHEST+ABD+PEL W CON Exam time: 03/20/2025 9:54 AM Indication: Assess treatment response. DX breast CA metastatic breast CA with LBP follow up HX COPD, Breast CA DX 2012 & 2023 HX breast lumpectomy, ancillary lymph node disecction and MALIGNANT NEOPLASM OF LOWER-INNER QUADRANT LEFT BREAST IN FEMALE, ESTROGEN RECEPTOR POSITIVE COMPARISON: 12/19/2024 08/27/2024 and 02/13/2024 TECHNIQUE: Contrast enhanced CT examination of the chest, abdomen, and pelvis was performed with axial and multiplanar reformatted images obtained, CT scan was obtained with IV contrast. 75 mL of Isovue 370 contrast was administered intravenously and uneventfully. A dose lowering technique was used for this procedure, which may include, but is not limited to, dose reduction technique, automated exposure control, the use of iterative reconstruction, and ALARA (As Low As Reasonably Achievable) / Image Gently techniques. FINDINGS: CT THORAX: Lungs and pleura: Pulmonary nodule in the right lung of the major fissure is stable as compared with prior studies. Resolved nodule in the right lung. Left lower lobe pulmonary nodule on image 62 is smaller from prior exam. Other pulmonary nodules are stable from prior exam. Mediastinum and phani: 1.4 cm lymph node in the right hilum is stable as compared with prior study. Vasculature: No acute finding. Axillae: No lymphadenopathy. Superficial tissues: Unremarkable Inferior cervical and supraclavicular region: The thyroid gland is unremarkable. CT ABDOMEN AND PELVIS: Liver: No mass. Gallbladder and Biliary system: No cholelithiasis. No biliary ductal dilatation. Pancreas: Unremarkable. Spleen: No splenomegaly. Kidneys: Unremarkable. Ureters and bladder: The ureters are unremarkable. The urinary bladder shows diffuse wall thickening possibly due to collapsed state. Adrenals: Normal. Bowel:Colonic and rectal stool is seen. No small bowel dilatation is seen.The stomach, duodenum, and viewed portions of the esophagus are unremarkable.The appendix is visualized and is within normal limits. Aorta and Retroperitoneum: No enlarged lymph nodes. Aorta is not aneurysmal. Pelvic Organs:Unremarkable Bone/Musculoskeletal: Multiple sclerotic lesions in the osseous structures. See recent bone scan. Ascites: None Additional Findings: Small umbilical hernia seen without bowel involvement, unchanged from prior study. ===== Procedure Note Nate Hunter MD - 03/26/2025 [facility] [address] [facility] [facility] [place] [address] Examination: CT CHEST+ABD+PEL W CON Exam time: 03/20/2025 9:54 AM Indication: Assess treatment response. DX breast CA metastatic breast CA with LBP follow up HX COPD, Breast CA DX 2012 & 2023 HX breast lumpectomy, ancillary lymph node disecction and MALIGNANT NEOPLASM OF LOWER-INNER QUADRANT LEFT BREAST IN FEMALE, ESTROGENRECEPTOR POSITIVE COMPARISON: 12/19/2024 08/27/2024 and 02/13/2024 TECHNIQUE: Contrast enhanced CT examination of the chest, abdomen, andpelvis was performed with axial and multiplanar reformatted imagesobtained, CT scan was obtained with IV contrast. 75 mL of Isovue 370contrast was administered intravenously and uneventfully. A dose loweringtechnique was used for this procedure, which may include, but is notlimited to, dose reduction technique, automated exposure control, the useof iterative reconstruction, and ALARA (As Low As Reasonably Achievable) /Image Gently techniques. FINDINGS: CT THORAX: Lungs and pleura: Pulmonary nodule in the right lung of the major fissureis stable as compared with prior studies. Resolved nodule in the rightlung. Left lower lobe pulmonary nodule on image 62 is smaller from priorexam. Other pulmonary nodules are stable from prior exam. Mediastinum and phani: 1.4 cm lymph node in the right hilum is stable ascompared with prior study. Vasculature: No acute finding. Axillae: No lymphadenopathy. Superficial tissues: Unremarkable Inferior cervical and supraclavicular region: The thyroid gland isunremarkable. CT ABDOMEN AND PELVIS: Liver: No mass. Gallbladder and Biliary system: No cholelithiasis. No biliary ductaldilatation. Pancreas: Unremarkable. Spleen: No splenomegaly. Kidneys: Unremarkable. Ureters and bladder: The ureters are unremarkable. The urinary bladdershows diffuse wall thickening possibly due to collapsed state. Adrenals: Normal. Bowel:Colonic and rectal stool is seen. No small bowel dilatation isseen.The stomach, duodenum, and viewed portions of the esophagus areunremarkable.The appendix is visualized and is within normal limits. Aorta and Retroperitoneum: No enlarged lymph nodes. Aorta is notaneurysmal. Pelvic Organs:Unremarkable Bone/Musculoskeletal: Multiple sclerotic lesions in the osseousstructures. See recent bone scan. Ascites: None Additional Findings: Small umbilical hernia seen without bowelinvolvement, unchanged from prior study. ===== IMPRESSION:===== Multiple bilateral pulmonary nodules, stable to improved. No new lesions or adenopathy in CAP. Diffuse metastasis in bones. See recent bone scan. Referred By: MERCED CLOUD Interpreted By: Nate Hunter MD, 03/26/2025 5:43 AM us Merced Cloud MD CT Final Resul t * NM BONE SCAN WHOLE BODY WO SPECT (03/09/2025 2:05 PM CDT) Anatomical Region Laterality Modality Bone Nuclear Medicine 03/10/2025 8:20 AM CDT Impressions 03/10/2025 8:32 AM CDT IMPRESSION: Stable multifocal osteoblastic metastatic disease which appears similar in distribution to the prior exam. No new or increasing focal area of uptake in a pattern to suggest progression. Ordered By: MERCED CLOUD Interpreted By: Romina Jensen MD, 03/10/2025 8:20 AM Narrative 03/10/2025 8:32 AM CDT [address] [address] EXAMINATION: BONE SCINTIGRAPHY (WHOLE-BODY) DATE OF STUDY: 03/09/2025 RADIOPHARMACEUTICAL: 25.0 mCi Tc-99m MDP i.v. 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 Patient is currently being treated with Ibrance, Fulvestrant, and Zometa. FINDINGS: Delayed whole-body scintigrams were obtained. Additional dedicated static images of the ribs, pelvis, and head and neck were obtained. Prior nuclear medicine studies used for comparison: Whole-body bone scintigraphy 12/10/2024, 08/29/2024, FDG PET CT 05/22/2024 Other radiographic comparisons: CT chest abdomen and pelvis 12/19/2024, 08/27/2024 Redemonstration of multifocal areas of increased uptake which appears similar in distribution to the prior exam. Sites of involvement include the left lateral 11th rib, left posterior eighth rib, T6 vertebral body, head of the right 12th rib, and L5 vertebral body. Subtle uptake along the medial right acetabulum, right posterior ilium, and sacrum. These sites of involvement correspond to sclerotic lesions on previous PET/CT. Overall the distribution of lesions is similar to the prior exam with similar or decreasing uptake. No definite new or increasing focal area of uptake in a pattern suggestive of progression of the osteoblastic metastatic disease Multifocal osteoarthritic degenerative uptake involving the shoulders, elbows, wrists, hands, spine, hips, knees, ankles, and feet. Increasing uptake along the left greater trochanter is likely secondary to enthesopathy as there is no sclerotic lesion at this location on the most recent CT. Procedure Note Romina Jensen MD - 03/10/2025 [facility] [address] [place], [place] [address] EXAMINATION: BONE SCINTIGRAPHY (WHOLE-BODY) DATE OF STUDY: 03/09/2025 RADIOPHARMACEUTICAL: 25.0 mCi Tc-99m MDP i.v. HISTORY: Invasive ductal carcinoma left breast status post lumpectomy andradiation in 2012 with intermittent hormone therapy through 2015. Biopsyproven bone metastasis in the lumbar spine in March 2024. Patient iscurrently being treated with Ibrance, Fulvestrant, and Zometa. FINDINGS: Delayed whole-body scintigrams were obtained. Additionaldedicated static images of the ribs, pelvis, and head and neck wereobtained. Prior nuclear medicine studies used for comparison: Whole-body bonescintigraphy 12/10/2024, 08/29/2024, FDG PET CT 05/22/2024 Other radiographic comparisons: CT chest abdomen and pelvis 12/19/2024,08/27/2024 Redemonstration of multifocal areas of increased uptake which appearssimilar in distribution to the prior exam. Sites of involvement includethe left lateral 11th rib, left posterior eighth rib, T6 vertebral body,head of the right 12th rib, and L5 vertebral body. Subtle uptake along themedial right acetabulum, right posterior ilium, and sacrum. These sites ofinvolvement correspond to sclerotic lesions on previous PET/CT. Overallthe distribution of lesions is similar to the prior exam with similar ordecreasing uptake. No definite new or increasing focal area of uptake in apattern suggestive of progression of the osteoblastic metastatic disease Multifocal osteoarthritic degenerative uptake involving the shoulders,elbows, wrists, hands, spine, hips, knees, ankles, and feet. Increasinguptake along the left greater trochanter is likely secondary toenthesopathy as there is no sclerotic lesion at this location on the mostrecent CT. IMPRESSION: Stable multifocal osteoblastic metastatic disease which appears similar indistribution to the prior exam. No new or increasing focal area of uptakein a pattern to suggest progression. Ordered By: MERCED CLOUD Interpreted By: Romina Jensen MD, 03/10/2025 8:20 AM us Merced Cloud MD NUC MED Final Resul t * HEPATITIS C ANTIBODY (08/29/2019 11:46 AM CDT) HEPATITIS C AB NON-REACTI VE NON-REACTI VE 08/29/2019 2:59 PM CDT [facility] 08/29/2019 11:4 6 AM CDT us Richard Hubbard MD LABORATORY Final Result [facility] [address] [place] [address], [place] [phone] from Last 3 Months or Most Recently Relevant to Health Maintenance Insurance MEDICARE [employer] Care Teams Riprap Placer Relationship Specialty Start Date End Date Roamn Dempsey MD [address] [place] [address] PCP - General INTERNAL MEDICINE 06/06/19
--- OUTSIDE RECORDS SUMMARY | 2025-04-13 17:01 | XMS_ITS | Encounter Summary ---
Author Organization [facility] Address [address] [place] [address] Phone Care Team Providers Care Senior Chemical Engineer Name Role Phone Roman Dempsey MD Primary Care Provider [phone] David Cloud MD Unavailable [phone] Carol Galindo RN Unavailable Unavailab Yana Leary RN Unavailable Unavailable Yana Jonas RN Unavailable Unavailable Joceline Phillip RN Unavailable Unavailable Encounter Details Date Type Department Care Team (Late st Contact Info) Description 03/03/2024 Telephone [facility] [address] [place] [address] David Cloud MD [address] [place] [address] Social History Tobacco Use Types [...] David Cloud MD Huelsmann, Carol L; [facility] Drug Safety Physician Pool; [facility] Nurse Pool23 hours ago (12:52 PM) MW Ok, sure [...] AM CDT Office Visit [facility] [address] [address] David Cloud MD [address] [place] [phone] 04/23/2025 11:45 AM CDT Clinical Support [facility] [address] [address] 06/11/2025 11:30 AM CDT Clinical Support [facility] [address] [address] documented as of this encounter Visit Diagnoses Not on filedocumented in this encounter Additional Health Concerns Assessment Noted Time PHQ-9 Depression Total Score: 1 06/23/20 21 2:44 PM CDT documented as of this encounter Care Teams Senior Chemical Engineer Relationship Specialty Start Date End Date Roman Dempsey MD [address] [address] PCP - General Internal Medicine 10/07/15 David Cloud MD [address] [place] [address] Consulting Physician Oncology 04/04/24 Carol Galindo, DEBBIE [place] Oncology Nurse Navigator Oncology 06/02/24 07/27/24 Yana Jonas, RN [place] Registered Nurse 06/02/24 06/02/24 Yana Jonas, RN [place] Oncology Nurse Navigator Oncology 07/02/24 Joceline Phillip, RN [place] Oncology Nurse Navigator Oncology 09/18/24 documented as of this encounter
--- OUTSIDE RECORDS SUMMARY | 2025-04-13 17:01 | XMS_ITS | Clinical Summary ---
Author Organization [facility] [address] Address [address] [place] [address] Care Team Providers Care Color Television Console Monitor Name Role Phone Roman Dempsey MD Primary Care Provide r Allergies No known active allergies Medications estradioL (ESTRACE) 0.01 % (0.1 mg/gram) vaginal cream USE VAGINALLY AT BEDTIME DIRECTED 2 TIMES PER WEEK 2 Active clobetasol propionate/emoll (CLOBETASOL-EMOL LIENT TOP) 4 Active tacrolimus (PROTOPIC) 0.1 % [...] tablet 3 4 Active Eliquis 5 mg tabletIndication s:Atrial fibrillation, unspecified type (HCC) TAKE 1 TABLET TWICE A DAY 180 tablet 3 4 Active fulvestrant (FASLODEX) 250 mg/5 mL syringe Inject 10 mL (500 mg total) into the muscle as instructed every 30 (thirty) days 4 Active Ibrance 100 mg tablet Take 1 tablet (100 mg total) by mouth daily Active zoledronic acid (ZOMETA IV) 4 Active albuterol HFA (PROVENTIL HFA,VENTOLIN HFA,PROAIR HFA) 90 mcg/actuation inhaler INHALE 2 PUFFS BY MOUTH EVERY 4-6 HOURS NEEDED FOR SHORTNESS OF BREATH. 3 Active Active Problems Problem Noted Date Diagnosed Date Visit for wound check 03/08/2023 Status post placement of implantable loop record er 03/01/2023 Overview (03/01/2023): Biomonitor IIIm Loop Recorder. Dx; PAF. DOI 03/01/2023-[place]. [place]. Biotronik remote home monitoring. Encounters Date Type Department Care Team Description 02/25/2025 11:00 AM CDT Office Visit [facility] Cardiology [address] [place] [id number] Eliecer Butts MD PAF (paroxysmal atrial fibrillation) (HCC) (Primary Dx); Chronic anticoagulation; Lipid screening from Last 3 Months Surgical History Surgery Date Site/Laterality Comments BREAST SURGERY Lumpectomy Sep 2013 SECTION Sep 18, 1985 TUBAL LIGATION 1992 Medical History Medical History Date Comments Arthritis Osteoporosis Cancer (HCC) Aug 2013 Infectious viral hepatitis 1965 Family History Medical History Relation Name Comments Alcohol abuse Brother Alex Alzheimer's disease Father Sergio Diabetes Father Sergio Hypertension Father Sergio Arthritis Maternal Grandfather Fred Miscarriages / Stillbirths Maternal Grandmother Susana ce Alcohol abuse Mother Marcia Arthritis Mother Marcia Miscarriages / Stillbirths Mother Marcia Alzheimer's disease Paternal Grandmother Lauren Diabetes Paternal Grandmother Lauren Miscarriages / Stillbirths Sister Jocelny Moise Relation Name Status Comments Brother Alex Father Sergio Maternal Grandfather Fred Maternal Grandmother Sunni Mother Marcia Paternal Grandmother Lauren Sister Jocelyn Moise Social History Tobacco Use Types Packs/Day Years Used Date Smoking Tobacco: Former Cigarettes 0.8 31.5 0 10/29/1978 - 04/27/2010 Smokeless Tobacco: Never Comments Unknown Sex and Gender Information Value Date Recorded Sex Assigned at Not on file Legal Sex Female 8:20 AM CDT Gender Identity Not on file Sexual Orientation Not on file Obstetrics History Last Filed Vital Signs Vital Sign Reading Time Taken Comments Blood Pressure 126/78 02/25/2025 11:10 AM CDT Pulse 51 02/25/2025 11:10 AM CDT Temperature - - Respiratory Rate - - Oxygen Saturation 98% 02/25/2025 11:10 AM CDT Inhaled Oxygen Concentration - - Weight 71.7 kg (158 lb) 02/25/2025 11:10 AM CDT Height 167.6 cm (5' 6) 02/25/2025 11:10 AM CDT Body Mass Index 25.5 02/25/2025 11:10 AM CDT Plan of Treatment Health Maintenance Due Date Last Done Comments Breast Cancer Screening-Mammogram 1957 Colon Cancer Screening-Colonoscopy 1957 Depression Screening 1957 Fall Risk Assessment 1957 Hepatitis C Screening 1957 Hepatitis B Screening 1975 Pneumococcal vaccine 65+ (1 of 2 - PCV) 1976 Lung Cancer Screening 2007 Zoster Vaccine (1 of 2) 11/03/2014 09/08/2014 Osteoporosis Screening-Bone Density Scan 07/13/2019 07/13/2017, 07/02/2015 Covid-19 Vaccine (3 - Pfizer risk series) 02/21/2021 01/24/2021, 01/03/2021 Well Visit 65+ 2022 Influenza Vaccine (Season Ended) 2025 11/17/2014, 08/25/2014, 05/05/2014, Additional history exists DTaP/Tdap/Td Vaccine (2 - Td or Tdap) 05/11/2027 05/11/2017 Procedures Procedure Name Priority Date/Time Associated Diagnosis Comments POCT LIPID PANEL Routine 02/25/2025 11:0 5 AM CDT Lipid screening from Last 3 Months Results * (ABNORMAL) POCT lipid panel (02/25/2025 11:05 AM CDT) Cholesterol, POC 230 <200 MG/DL HDL, POC 99 >=40 mg/dL Triglycerides, POC 44 <=149 mg/dL LDL Cholesterol POC 122.2 <=129 mg/dL Cholesterol Total, POC 230(A) 30 - 199 mg/dL Capillary blood 02/25/2025 1 1:05 AM CDT Eliecer Butts MD POINT OF CARE TEST ORDERABLES Fi nal Result from Last 3 Months Insurance MEDICARE [facility] SENIOR SUPPLEMENT MEDICARE T SENIOR SUPPLEMENT Care Teams Color Television Console Monitor Relationship Specialty Start Date End Date Roman Dempsey MD [address] [place] [address] PCP - General Emergency Medicine 12/12/19
--- OUTSIDE RECORDS SUMMARY | 2025-04-13 17:01 | XMS_ITS | Encounter Summary ---
Author Organization [facility] Address [address] [place] [address] Phone Care Team Providers Care Hand Pleater Name Role Phone Roman Dempsey MD Primary Care Provider [phone] David Cloud MD Unavailable [phone] Carol Galindo RN Unavailable Unavailab Yana Leary RN Unavailable Unavailable Yana Jonas RN Unavailable Unavailable Joceline Phillip RN Unavailable Unavailable Encounter Details Date Type Department Care Team (Late st Contact Info) Description 03/25/2024 Telephone [facility] [address] [address] David Cloud MD [address] [place] [address] Social History Tobacco Use Types [...] AM CDT [facility] [address] [facility] [address] [address] David Cloud MD [address] [place] [phone] 04/23/2025 11:45 AM CDT Clinical Support [facility] [address] [facility] [address] [address] 06/11/2025 11:30 AM CDT Clinical Support [facility] [address] [address] documented as of this encounter Visit Diagnoses Not on filedocumented in this encounter Additional Health Concerns Assessment Noted Time PHQ-9 Depression Total Score: 1 06/23/20 21 2:44 PM CDT documented as of this encounter Care Teams Hand Pleater Relationship Specialty Start Date End Date Roman Dempsey MD [address] [place] [address] PCP - General Internal Medicine 10/07/15 David Cloud MD [address] [place] [phone] Consulting Physician Oncology 04/04/[address] Oncology Nurse Navigator Oncology 06/02/24 07/27/24 Yana Jonas, RN CT Registered Nurse 06/02/24 06/02/24 Yana Jonas, RN CT Oncology Nurse Navigator Oncology 07/02/24 Joceline Phillip, RN CT Oncology Nurse Navigator Oncology 09/18/24 documented as of this encounter
--- OUTSIDE RECORDS SUMMARY | 2025-04-13 17:01 | XMS_ITS | Encounter Summary ---
Author Organization [facility] Address [address] [place] [address] Phone Care Team Providers Care Telegraph Dispatcher Name Role Phone Roman Dempsey MD Primary Care Provider [phone] David Cloud MD Unavailable [phone] Carol Galindo RN Unavailable Unavailab Yana Leary RN Unavailable Unavailable Yana Jonas RN Unavailable Unavailable Joceline Phillip RN Unavailable Unavailable Encounter Details Date Type Department Care Team (Late st Contact Info) Description 03/28/2024 Telephone [facility] [address] [place] [address] David Cloud MD [address] [place] [address] Social History Tobacco Use Types [...] you like to schedule pt 04/17 in [place]? Please advice thanks documented in this encounter Plan of Treatment Upcoming Encounters Date Type Department Care Team (Late st Contact Info) Description 04/23/2025 11:30 AM CDT Office Visit [facility] [address] [address] David Cloud MD [address] [place] [address] 04/23/2025 11:45 AM CDT Clinical Support [facility] [address] [address] 06/11/2025 11:30 AM CDT Clinical Support [facility] [address] [address] documented as of this encounter Visit Diagnoses Not on filedocumented in this encounter Additional Health Concerns Assessment Noted Time PHQ-9 Depression Total Score: 1 06/23/20 21 2:44 PM CDT documented as of this encounter Care Teams Telegraph Dispatcher Relationship Specialty Start Date End Date Roman Dempsey MD [address] [facility] [address] [place] [address] PCP - General Internal Medicine 10/07/15 David Cloud MD [address] [place] [address] Consulting Physician Oncology 04/04/24 Carol Galindo RN [place] Oncology Nurse Navigator Oncology 06/02/24 07/27/24 Yana Jonas RN [place] Registered Nurse 06/02/24 06/02/24 Yana Jonas, RN [place] Oncology Nurse Navigator Oncology 07/02/24 Joceline Phillip, RN [place] Oncology Nurse Navigator Oncology 09/18/24 documented as of this encounter
--- OUTSIDE RECORDS SUMMARY | 2025-04-13 17:01 | XMS_ITS | Referral Summary ---
Author Organization [facility] [address] [place] [address] [address] [place] [address] Care Team Providers Care Greeting Card Writer Name Role Phone Roman Dempsey MD Primary Care Provide r Encounters Date Type Department Care Team Description 02/25/2025 11:00 AM CDT Office Visit [facility] Cardiology [address] [facility] [address] [place] [address] Eliecer Butts MD PAF (paroxysmal atrial fibrillation) (HCC) (Primary Dx); Chronic anticoagulation; Lipid screening from Last 3 Months Allergies No known active allergies Medications estradioL [...] 02/25/2025 11:10 AM CDT Plan of Treatment Not on file Procedures Procedure Name Priority Date/Time Associated Diagnosis [...] Result from Last 3 Months Insurance MEDICARE [employer] SENIOR SUPPLEMENT MEDICARE [employer] SENIOR SUPPLEMENT Care Teams Greeting Card Writer Relationship Specialty Start Date End Date Roman Dempsey MD [address] [place] [address] PCP - General Emergency Medicine 12/12/19
[2025-04-13 17:14] LABS: Add Urine Microscopic? YES; Appearance Urine Clear (Clear); Bacteria Urine 4+ /hpf; Bilirubin Urine Negative (Negative); Blood Urine Negative (Negative); Color Urine Yellow (Yellow); Glucose Urine UA Negative (Negative); Ketones Urine Negative (Negative); Leukocyte Esterase Ur 3+ LEU/UL (Negative); Nitrate Urine Positive (Negative); Non Pathogenic Casts 0-2; Protein Urine Negative (Negative); RBC Urine 0-2 /hpf (0-2); Specific Grav Ur 1.004 (1.001-1.035); Squamous Epithelial Cell Urine None Seen /hpf (Few); Urobilinogen Urine 0.2 mg/dL (<2.0)
== END 2025-04-13 16:06 | disposition home or self-care (01) ==
PROVIDERS: Visit Provider Emergency Medicine
DX: N39.0 Urinary tract infection, site not specified (principal)
CPT/HCPCS: 81001; 87086; 87186

== ENCOUNTER 2025-06-22 11:40 | Outpatient (CLI) | payer MEDICARE, SELFPAY ==
--- OUTSIDE RECORDS SUMMARY | 2025-06-22 12:14 | XMS_ITS | Encounter Summary ---
Author Organization [facility] Address [address] [place] [address] Phone Care Team Providers Care Waste Management Recycling Technician Name Role Phone Roman Dempsey MD Primary Care Provider [phone] David Cloud MD Unavailable [phone] Carol Galindo RN Unavailable Unavailab Yana Leary RN Unavailable Unavailable Yana Jonas RN Unavailable Unavailable Joceline Phillip RN Unavailable Unavailable Encounter Details Date Type Department Care Team (Late st Contact Info) Description 03/03/2024 Telephone [facility] [address] [place] [address] David Cloud MD [address] [place] [address] Social History Tobacco Use Types [...] David Cloud MD Huelsmann, Carol L; [facility] Parking Patroller Pool; [facility] [place]23 hours ago (12:52 PM) MW Ok, sure [...] Care Team (Late st Contact Info) Description 07/16/2025 11:45 AM CDT Office Visit [facility] [address] [address] David Cloud MD [address] [place] [phone] 07/16/2025 12:00 PM CDT Clinical Support [facility] [address] [address] Nurse, Sydnee [place] 07/23/2025 11:30 AM CDT Clinical Support [facility] [address] [address] documented as of this encounter Visit Diagnoses Not on filedocumented in this encounter Additional Health Concerns Assessment Noted Time PHQ-9 Depression Total Score: 1 06/23/20 21 2:44 PM CDT documented as of this encounter Care Teams Waste Management Recycling Technician Relationship Specialty Start Date End Date Roman Dempsey MD [address] [place] [address] PCP - General Internal Medicine 10/07/15 David Cloud MD [address] [place] [address] Consulting Physician Oncology 04/04/24 Carol Galindo, DEBBIE [place] Oncology Nurse Navigator Oncology 06/02/24 07/27/24 Yana Jonas, RN [place] Registered Nurse 06/02/24 06/02/24 Yana Jonas, RN [place] Oncology Nurse Navigator Oncology 07/02/24 Joceline Phillip, RN [place] Oncology Nurse Navigator Oncology 09/18/24 documented as of this encounter
--- OUTSIDE RECORDS SUMMARY | 2025-06-22 12:14 | XMS_ITS | Clinical Summary ---
Author Organization [facility] Address [address], [facility] [address] [place] [address] Phone Care Team Providers Care Order Caller Name Role Phone Roman Dempsey MD Primary Care Provider [phone] David Cloud MD Unavailable [phone] Yana Jonas RN Unavailable Unavailable Joceline Phillip [...] 1st line. 30 Tablet 3 4 Active prochlorperazin e (COMPAZINE) 10 MG Tablet Take [...] Encounters Date Type Department Care Team Description 06/18/2025 11:45 AM CDT Clinical Support [facility] [id number] [place] [phone] Nurse, C[facility] [place] Malignant neoplasm of lower-inner quadrant of left female breast, unspecified estrogen receptor status (HCC) (Primary Dx) 06/18/2025 11:30 AM CDT Office Visit [facility] [id number] [place] [phone] Ofelia Montero, ALLEN, PATIENT SERVICE COORDINATOR Malignant neoplasm of lower-inner quadrant of left female breast, unspecified estrogen receptor status (HCC) (Primary Dx); Carcinoma of breast metastatic to bone, unspecified laterality (HCC) 06/18/2025 Travel 06/11/2025 1:00 PM CDT Clinical Support [facility] [id number] [place] [phone] Nurse, [place] Malignant neoplasm of lower-inner quadrant of left female breast, unspecified estrogen receptor status (HCC) (Primary Dx) 06/11/2025 Travel 05/21/2025 11:45 AM CDT Clinical Support [facility] [id number] [place] [phone] Nurse, [place] Malignant neoplasm of lower-inner quadrant of left female breast, unspecified estrogen receptor status (HCC) (Primary Dx) 05/21/2025 11:30 AM CDT Office Visit [facility] [id number] [place] [phone] David Cloud MD Malignant neoplasm of lower-inner quadrant of left female breast, unspecified estrogen receptor status (HCC) (Primary Dx); Monoclonal gammopathy 05/21/2025 Travel 05/14/2025 1:00 PM CDT Clinical Support [facility] [address] [place] [phone] Nurse, [facility] [place] Malignant neoplasm of lower-inner quadrant of left female breast, unspecified estrogen receptor status (HCC) (Primary Dx) 05/14/2025 Travel 04/23/2025 11:45 AM CDT Clinical Support [facility] [address] [address] Malignant neoplasm of lower-inner quadrant of left female breast, unspecified estrogen receptor status (HCC) (Primary Dx) 04/23/2025 11:30 AM CDT Office Visit [facility] [id number] [place] [phone] Ofelia Montero, SPONSORSHIP COORDINATOR, PATIENT SERVICE COORDINATOR Malignant neoplasm of lower-inner quadrant of left female breast, unspecified estrogen receptor status (HCC) (Primary Dx); Monoclonal gammopathy 04/23/2025 Travel 04/14/2025 Telephone [facility] [address] [place] [address] David Cloud MD Canopy call / ITI and Ibrance 03/26/2025 12:00 PM CDT Clinical Support [facility] [id number] [place] [phone] Nurse, [facility] Malignant neoplasm of lower-inner quadrant of left female breast, unspecified estrogen receptor status (HCC) (Primary Dx) 03/26/2025 11:45 AM CDT Office Visit [facility] [address] [phone] David Cloud MD Monoclonal gammopathy (Primary Dx); Encounter for screening mammogram for malignant neoplasm of breast; Elevated blood pressure reading 03/26/2025 Travel from Last 3 Months Immunizations Immunization [...] Sign Reading Time Taken Comments Blood Pressure 120/66 06/18/2025 11:55 AM CDT Pulse 50 06/18/2025 11:55 AM CDT Temperature 36.6 C (97.9 F) 06/18/2025 11:55 AM CDT Respiratory Rate 20 06/18/2025 11:55 AM CDT Oxygen Saturation 98% 06/18/2025 11:55 AM CDT Inhaled Oxygen Concentration - - Weight 70.3 kg (155 lb) 06/18/2025 11:55 AM CDT Height 167.6 cm (5' 6) 06/18/2025 11:55 AM CDT Body Mass Index 25.02 06/18/2025 11:55 AM CDT Plan of Treatment Upcoming Encounters Date Type Department Care Team (Late st Contact Info) Description 07/16/2025 11:45 AM CDT Office Visit [facility] [address] [address] David Cloud MD [address] [place] [phone] 07/16/2025 12:00 PM CDT Clinical Support [facility] [address] [phone] Nurse, [place] 07/23/2025 11:30 AM CDT Clinical Support [facility] [address] [phone] Health Maintenance Due Date Last Done Comments Cologuard 2002 Colonoscopy 2002 Colorectal Cancer Screening 2002 Immunochemical Fecal Occult Blood 2002 Zoster Immunization (1 of 2) 11/03/2014 09/08/2014 DEXA Bone Density 07/13/2019 07/13/2017, 07/02/2015 Mammogram 10/19/2021 10/19/2020, 09/29, 10/17/2019, Additional history exists SARS-COV-2 Immunization (9 - Pfizer risk season) 2025 07/18/2024, 08/19/2023, 02/20/2023, Additional history exists Influenza Immunization (#1) 2025 Td Immunization Every 10 Years (Adults [...] COMPLETE BLOOD COUNT (CBC) WITH DIFF Routine 06/18/2025 1:03 PM CDT Malignant neoplasm of lower-inner quadrant of left female breast, unspecified estrogen receptor status (HCC) CMP (COMPREHENSIVE METABOLIC PANEL) Routine 06/18/2025 1:03 PM CDT Malignant neoplasm of lower-inner quadrant of left female breast, unspecified estrogen receptor status (HCC) CARCINOEMBRYONIC ANTIGEN (CEA) Routine 06/18/2025 1:03 PM CDT Malignant neoplasm of lower-inner quadrant of left female breast, unspecified estrogen receptor status (HCC) CANCER ANTIGEN (CA) 15-3 Routine 025 1:03 PM CDT Malignant neoplasm of lower-inner quadrant of left female breast, unspecified estrogen receptor status (HCC) CANCER ANTIGEN (CA) 15-3 Routine 025 12:10 PM CDT Malignant neoplasm of lower-inner quadrant of left female breast, unspecified estrogen receptor status (HCC) Monoclonal gammopathy CARCINOEMBRYONIC ANTIGEN (CEA) Routine 05/21/2025 12:10 PM CDT Malignant neoplasm of lower-inner quadrant of left female breast, unspecified estrogen receptor status (HCC) Monoclonal gammopathy CMP (COMPREHENSIVE METABOLIC PANEL) Routine 05/21/2025 12:10 PM CDT Malignant neoplasm of lower-inner quadrant of left female breast, unspecified estrogen receptor status (HCC) Monoclonal gammopathy COMPLETE BLOOD COUNT (CBC) WITH DIFF Routine 05/21/2025 12:10 PM CDT Malignant neoplasm of lower-inner quadrant of left female breast, unspecified estrogen receptor status (HCC) Monoclonal gammopathy MAGNESIUM (MG) Routine 05/21/2025 12:10 PM CDT Malignant neoplasm of lower-inner quadrant of left female breast, unspecified estrogen receptor status (HCC) Monoclonal gammopathy COMPLETE BLOOD COUNT (CBC) WITH DIFF Routine 04/23/2025 12:09 PM CDT Malignant neoplasm of lower-inner quadrant of left female breast, unspecified estrogen receptor status (HCC) CMP (COMPREHENSIVE METABOLIC PANEL) Routine 04/23/2025 12:09 PM CDT Malignant neoplasm of lower-inner quadrant of left female breast, unspecified estrogen receptor status (HCC) LACTATE DEHYDROGENASE (LD) Routine 04/23/2025 12:09 PM CDT Malignant neoplasm of lower-inner quadrant of left female breast, unspecified estrogen receptor status (HCC) GURVINDER SCREENING BILATERAL DIGITAL W CAD Routine 10/19/2020 Malignant neoplasm of lower-inner quadrant of left breast in female, estrogen receptor positive (HCC) [facility] BONE DENSITOMETRY AXIAL SKELETON Routine 07/13/2017 from Last 3 Months or Most Recently Relevant to Health Maintenance Results * (ABNORMAL) CMP (COMPREHENSIVE METABOLIC PANEL) (06/18/2025 1:03 PM CDT) Only the most recent of3 resultswithin the time period is included. Glucose 99 70 - 105 mg/dL [facility] Blood Urea Nitrogen 8 7 - 25 mg/dL [facility] Creatinine 0.7 0.6 - 1.2 mg/dL [facility] Sodium 133(L) 136 - 145 mEq/L [facility] Potassium 4.4 3.5 - 5.1 mEq/L [facility] Chloride 97(L) 98 - 107 mEq/L [facility] Bicarbonate 30 21 - 31 mEq/L [facility] Total Bilirubin 0.4 0.3 - 1.0 mg/dL [facility] Alk. Phosphatase 29(L) 34 - 104 U/L [facility] Aspartate Aminotransferase 15 13 - 39 U/L [facility] Alanine Aminotransferase 12 7 - 52 U/L [facility] Total Protein 6.1(L) 6.4 - 8.9 g/dL [facility] Albumin 4.2 3.5 - 5.7 g/dL [facility] Calcium 9.4 8.6 - 10.3 mg/dL [facility] Anion Gap 10.4 7.0 - 15.0 mEq/L [facility] Globulin 1.9(L) 2.0 - 3.5 g/dL [facility] EGFR 94 >60 ml/min/1. 73m2 [facility] Comment: This eGFR is calculated using 2020 CKD-EPI Creatinine equation without race modifier based on the NKF-ASN task force recommendations Equation: fRID=189*min(SCr/k,1)a*max(SCr/k,1)-1.200*0.9938Age*1.012 (if female), where SCr is serum creatinine, k is 0.7 for females and 0.9 for males, and a is -0.241 for females and -0.302 for males Blood 06/18/2025 1:03 PM CDT Narrative [facility] FO[facility]IXER REPAIR[facility] - 06/18/2025 3:20 PM CDT Release to patient->Immediate IS THE PATIENT REQUIRED TO BE FASTING FOR 8 HOURS?->No Ofelia Montero SPONSORSHIP COORDINATOR, PATIENT SERVICE COORDINATOR CHEMISTRY ORDERABLES Final Result CAN[facility] FOOD MIXER REPAIR[facility] [place] [address], * (ABNORMAL) COMPLETE BLOOD COUNT (CBC) WITH DIFF (06/18/2025 1:03 PM CDT) Only the most recent of3 resultswithin the time period is included. WBC 2.4(L) 4.0 - 10.0 10*3/uL [facility] HGB 11.5 11.2 - 15.7 g/dL [facility] HCT 33.0(L) 34.1 - 44.9 % [facility] PLT 273 163 - 369 10*3/uL [facility] MPV 9.4 9.4 - 12.4 fL [facility] RBC 3.06(L) 3.93 - 5.22 10*6/uL [facility] MCV 108(H) 79 - 95 fL [facility] FOOD MIXER REPAIR[facility] MCH 37.6(H) 25.6 - 32.2 pg [facility] FOOD MIXER REPAIR[facility] MCHC 34.8 32.2 - 36.5 g/dL [facility] RDW 11.9 11.6 - 14.4 % [facility] Absolute Neutrophil Count 1,663 cells/uL [facility] Absolute Seg Count 1,446 1,440 - 6,600 cells/uL [facility] Absolute Band Count 217 0 - 800 cells/uL [facility] Absolute Lymph Count 386(L) 760 - 4,000 cells/uL [facility] MIXER REPA[facility] Absolute [place]ok Count 313 160 - 1,200 cells/uL [facility] MIXER REPAIR[facility] Absolute Eos Count 48 0 - 300 cells/uL [facility] MIXER REPA[facility] Segmented Neutrophils 60 36 - 66 % [facility] MIXER REPAIR[facility] Band Neutrophils 9(H) 0 - 8 % [facility]OD MIXER REPA[facility] Lymphocytes 16(L) 19 - 40 % [facility] Monocytes 13(H) 4 - 12 % [facility] Eosinophils 2 0 - 3 % [facility] WBC Estimate Low [facility] MIXER REPA[facility] Platelet Estimate Normal [facility] MIXER REPA[facility] RBC Morphology Abnormal CANCE R FOOD MIXER REPAIRER [facility] Macrocytosis 2+ [facility] FOOD MIXER REPAIR[facility] Blood 06/18/2025 1:03 PM CDT Narrative [facility] - 06/19/2025 1:22 PM CDT Release to patient->Immediate Ofelia Montero APRN, PATIENT SERVICE COORDINATOR HEMATOLOGY ORDERABLES Final Result Performing Organization Address City/[facility]/ZIP Co de Phone Number CANCER FOOD MIXER REPAIRER [facility] Cancer Care [address] [address], [place] [phone] * CARCINOEMBRYONIC ANTIGEN (CEA) (06/18/2025 1:03 PM CDT) Only the most recent of2 resultswithin the time period is included. CEA 1.1 0.0 - 5.0 ng/mL [facility] Comment: Juany Paramagnetic Particle Chemiluminescent Immunoassay Method Blood 06/18/2025 1:03 PM CDT Narrative [facility] - 06/19/2025 2:54 PM CDT Release to patient->Immediate us Ofelia Montero APRN, PATIENT SERVICE COORDINATOR CHEMISTRY ORDERABLES Final Result CANCER FOOD MIXER REPAIRER [facility] [address] [place] [address], [place] [phone] * CANCER ANTIGEN (CA) 15-3 (06/18/2025 1:03 PM CDT) Only the most recent of2 resultswithin the time period is included. CA15-3 19.0 0.0 - 31.3 U/mL [facility] Comment: Juany Paramagnetic Particle Chemiluminescent Immunoassay Method Blood 06/18/2025 1:03 PM CDT Narrative [facility] FOOD MIXER REPAIR[facility] - 06/19/2025 3:11 PM CDT Release to patient->Immediate Ofelia Montero APRN, PATIENT SERVICE COORDINATOR CHEMISTRY ORDERABLES Final Result Performing Organization Address [facility]/ZIP Co de Phone Number CANCER FOOD MIXER REPAIRER [facility] [place] [address], * MAGNESIUM (MG) (05/21/2025 12:10 PM CDT) Magnesium 2.2 1.9 - 2.7 mg/dL [facility] Blood 05/21/2025 12:1 0 PM CDT [facility] - 05/21/2025 2:18 PM CDT Release to patient->Immediate David Cloud MD CHEMISTRY ORDERABLES Final Result Performing Organization Address [facility]/ZIP Co de Phone Number CANCER FOOD MIXER REPAIRER [facility] [place] [address], * LACTATE DEHYDROGENASE (LD) (04/23/2025 12:09 PM CDT) LDH 140 140 - 271 U/L [facility]ER [facility]PA[facility] Blood 04/23/2025 12:0 9 PM CDT [facility] - 04/24/2025 8:53 AM CDT Release to patient->Immediate us Ofelia Montero APRN, PATIENT SERVICE COORDINATOR CHEMISTRY ORDERABLES Final Result CANCER FOOD MIXER REPAIRER OF [facility] [address] [place] [address], * GURVINDER SCREENING BILATERAL DIGITAL W CAD (10/19/2020) Anatomical Region Laterality Modality breast Bilateral Mammography David CANSECO MAMMO ORDERABLES Final Result * GURVINDER BONE DENSITOMETRY AXIAL SKELETON (07/13/2017) Anatomical Region Laterality Modality BODY N/A Other Historical Provider MD CANSECO DEXA ORDERABLES Final Result from Last 3 Months or Most Recently Relevant to Health Maintenance [facility] Care Teams Order Caller Relationship Specialty Start Date End Date Roman Dempsey MD [address] [place] [address] PCP - General Internal Medicine 10/07/15 David Cloud MD [address] [place] [phone] Consulting Physician Oncology 04/04/24 Yana Jonas, RN [place] Oncology Nurse Navigator Oncology 07/02/24 Joceline Phillip RN [place] Oncology Nurse Navigator Oncology 09/18/24
--- OUTSIDE RECORDS SUMMARY | 2025-06-22 12:14 | XMS_ITS | Encounter Summary ---
Author Organization [facility] Address [address] [place] [address] Phone Care Team Providers Care Technology Coach Name Role Phone Roman Dempsey MD Primary Care Provider [phone] David Cloud MD Unavailable [phone] Yana Jonas RN Unavailable Unavailable Joceline Phillip RN Unavailable Unavailable Encounter Details Date Type Department Care Team (Late st Contact Info) Description 02/02/2025 Telephone [facility] [address] [facility] [address] [place] [address] Ofelia Montero, INTENSIVE CARE MEDICINE SPECIALIST, POLISHER [employer]PLANT [address] [place] [address] Social History Tobacco Use Types [...] AM CDT Office Visit [facility] [address] [address] David Cloud MD [address] [place] [phone] 07/16/2025 12:00 PM CDT Clinical Support [facility] [address] [address] Nurse, [facility] 07/23/2025 11:30 AM CDT Clinical Support [facility] [address] [address] documented as of this encounter Visit Diagnoses Not on filedocumented in this encounter Additional Health Concerns Assessment Noted Time PHQ-9 Depression Total Score: 1 06/23/20 21 2:44 PM CDT documented as of this encounter Care Teams Technology Coach Relationship Specialty Start Date End Date Roman Dempsey MD [address] [facility] [address] [place] [address] PCP - General Internal Medicine 10/07/15 David Cloud MD [address] [place] [address] Consulting Physician Oncology 04/04/24 Yana Jonas, DEBBIE [place] Oncology Nurse Navigator Oncology 07/02/24 Joceline Phillip, [place] Oncology Nurse Navigator Oncology 09/18/24 documented as of this encounter
--- OUTSIDE RECORDS SUMMARY | 2025-06-22 12:14 | XMS_ITS | Clinical Summary ---
Author Organization [facility] Address [address] [facility] [place] [address] Care Team Providers Care Thresher Broomcorn Name Role Phone Roman Dempsey MD Primary Care Provider [phone] Medications sulfamethoxazol e-trimethoprim (BACTRIM DS) 800-160 mg [...] evening meal. 14 Tablet 10/15/2022 11:46 AM PACKAGE YARNS DRYING MACHINE OPERATOR 2 Active ALPRAZolam (XANAX) 0.25 mg tablet [...] 06/01/2024 2:42 PM CDT 3 Active calcitonin, [place], (FORTICAL) 200 unit/actuation [place], Non-Aerosol Administer 1 [place] in one nostril daily. Alternate nostril with each dose. 3.7 mL 6 07/08/2024 2:54 PM CDT 3 Active clobetasoL (TEMOVATE) 0.05 % Cream Apply thin layer to rash twice daily up to 4 weeks, then take a 2-week break (no face); once resolved, then use twice weekly for 6 months. 60 Gram 5 09/04/2024 11:50 AM PACKAGE YARNS DRYING MACHINE OPERATOR 4 Active tacrolimus (PROTOPIC) 0.1 % Ointment [...] mouth 2 times daily. 180 Tablet 3 05/15/2025 12:47 PM CDT 4 Active cyclobenzaprine (FLEXERIL) 5 mg Tablet [...] FOR SHORTNESS OF BREATH. 8.5 Gram 3 06/10/2025 3:15 PM CDT 4 Active estradioL (ESTRACE) 0.01% (0.1 mg/g) vaginal cream Apply 0.5 grams to the vaginal area three times weekly 42.5 Gram 3 05/15/2025 12:47 PM CDT 5 Active clobetasoL (TEMOVATE) 0.05 % Cream Apply a thin layer to the rash twice daily for up to 4 weeks, then take a 2 week break (no face); once resolved, use twice weekly for 6 months 60 Gram 5 11/18/2024 1:04 PM PACKAGE YARNS DRYING MACHINE OPERATOR 5 Active HYDROcodone-hira taminophen (NORCO) 5-325 mg tablet Take 1 Tablet by mouth every 6 hours as needed for pain 20 Tablet 12/24/2024 1:20 PM PACKAGE YARNS DRYING MACHINE OPERATOR 5 Active fluticasone propionate (FLONASE) 50 mcg/spray [place], Suspension nasal inhaler ADMINISTER 1 SPRAY IN EACH NOSTRIL TWICE DAILY. 48 Gram 2 01/06/2025 12:30 PM CDT 5 Active tiotropium (Spiriva Respimat) 1.25 mcg/actuation Mist Administer 2 puffs by mouth daily for COPD 4 Gram 5 5 Active umeclidinium (Incruse Ellipta) 62.5 mcg/actuation Disk with Device Take 1 Puff by inhalation daily. 30 Each 5 04/09/2025 3:07 PM CDT 5 Active Encounters Date Type Department Care Team Description 06/03/2025 External Device Data [place] [place] Provider, Abstract 05/13/2025 External Device Data [place] Provider, Abstract from Last 3 Months Immunizations Immunization Administration Dates Next Due (PREVNAR 20)(6 WKS UP) PNEUM OCOCCAL CONJUGATE VACCINE 20-VALENT (PCV20), POLYSACCHARIDE POW479 CONJUGATE, ADJUVANT 0.5 ML (PF) IM 09/01/2023 Social History Tobacco Use Types Packs/Day Years Used Date Smoking Tobacco: Never Assessed Comments Unknown Sex and Gender Information Value Date Recorded Sex Assigned at Not on file Legal Sex Female 10:27 AM PACKAGE YARNS DRYING MACHINE OPERATOR Gender Identity Not on file Sexual Orientation Not on file Plan of Treatment Health Maintenance Due Date Last Done Comments DTAP/TDAP/TD VACCINES (1 - Tdap) 1976 FIT-DNA Q 3 years 2002 FIT/FOBT Q 1 year 2002 Flex Sig/CT Colonography Q 5 years 2002 ZOSTER VACCINE (1 of 2) 2007 BREAST CANCER SCREENING 10/19/2021 10/19/20, 10/19/2020, 10/17/2019, Additional history exists OSTEOPOROSIS SCREENING 10/17/2024 10/17/2019, 2016 INFLUENZA VACCINE (#1) 2025 COLORECTAL SCREENING 09/30/2028 09/30/2018 Colorectal Cancer Screening 09/30/2028 RSV VACCINE (60+ or ) (1 - 1-dose 75+ series) 2032 PNEUMOCOCCAL VACCINE 50+ YEARS Completed 09/01/2023 Insurance RX [employer] (INTERNAL) [facility] RX [employer] Medicare Part B RX [employer] RX Member Subscriber Plan / Payer (Ef fective 2024-Present) Name:Araseli Correa Relation to Subscriber:Self Name:Araseli Correa Payer ID:Not on file Group ID:[id number] Type:RX Commercial Address: [address] Care Teams Thresher Broomcorn Relationship Specialty Start Date End Date Roman Dempsey MD [address] [place] [address] PCP - General Internal Medicine 05/14/19
--- OUTSIDE RECORDS SUMMARY | 2025-06-22 12:14 | XMS_ITS | Clinical Summary ---
Author Organization [facility] Address [address] [place] [address] Care Team Providers Care Forensic Photographer Name Role Phone Roman Dempsey MD Primary Care Provider + [phone] Allergies No known active allergies Medications albuterol [...] Encounters Date Type Department Care Team Description 06/12/2025 9:28 AM CDT - 06/12/2025 11:59 PM T Hospital Encounter [facility] [place] [address] Merced Cloud MD Discharge Disposition: Home or Self Care (Routine Discharge) 06/11/2025 9:54 AM CDT - 06/11/2025 11:59 PM T Hospital Encounter [place] [address] [place] [address] Merced Cloud MD Discharge Disposition: Home or Self Care (Routine Discharge) 06/11/2025 Travel 03/26/2025 2:22 PM CDT - 03/26/2025 11:59 PM CDT Hospital Encounter [facility] [address] [place] [address] Merced Cloud MD Discharge Disposition: Home or Self Care (Routine Discharge) 03/26/2025 Orders Only [facility] [address] [place] [address] Merced Cloud MD from Last 3 Months Immunizations Immunization Administration [...] Sex Assigned at Female 11/25/2024 10:36 AM NUTRITION INSTRUCTOR Legal Sex Female 4:09 PM CDT Gender [...] BONE SCAN WHOLE BODY WO SPECT Routine 06/12/2025 2:20 PM CDT Malignant neoplasm of lower-inner quadrant of left female breast, unspecified estrogen receptor status (CMS/HCC HHS/HCC) Monoclonal gammopathy CT CHEST+ABD+PEL W CON Routine 10:20 AM CDT Malignant neoplasm of lower-inner quadrant of left female breast, unspecified estrogen receptor status (CMS/HCC HHS/HCC) Monoclonal gammopathy CBC W/DIFF AUTOMATED Routine 03/26/2025 12:29 PM [...] neoplasm of breast Elevated blood pressure reading HEPATITIS C ANTIBODY Routine 08/29/2019 11:46 AM CDT Special screening examination for viral disease Encounter for therapeutic drug monitoring from Last 3 Months or Most Recently Relevant to Health Maintenance Results * NM BONE SCAN WHOLE BODY WO SPECT (06/12/2025 2:20 PM CDT) Anatomical Region Laterality Modality Bone Nuclear Medicine 06/12/2025 2:56 PM CDT Impressions 06/12/2025 3:09 PM CDT IMPRESSION: No scintigraphic evidence of new or worsening osteoblastic metastatic disease. Similar scintigraphic appearance of multifocal involvement of the axial skeleton. Ordered By: MERCED CLOUD Interpreted By: Reuben Peck MD, 06/12/2025 2:56 PM Narrative 06/12/2025 3:09 PM CDT [place] [address] EXAMINATION: NM BONE SCAN WHOLE BODY WO SPECT HISTORY: Reason for examination (per EHR order): Monoclonal gammopathy. Additional clinical information obtained from the EHR: 70 years Female with invasive ductal carcinoma status post lumpectomy and radiation therapy with intermittent hormone therapy. Biopsy-proven metastatic disease to the lumbar spine March 2024. RADIOPHARMACEUTICAL: 25.7 mCi Tc-99m MDP via intravenous injection at the right antecubital fossa. TECHNIQUE: Delayed whole-body scintigrams were obtained with additional spot views. COMPARISON: Skeletal scintigraphy 03/09/2025. CT chest, abdomen, and pelvis 06/11/2025. FINDINGS: Redemonstration of multifocal tracer uptake axial skeleton, with involvement of the left lateral eleventh rib, posterior left eighth rib, thoracolumbar spine, sacrum, and right ilium. Tiny sclerotic foci throughout the left ilium demonstrated on CT without scintigraphic correlate, likely due to insufficient size. No new focus of abnormal radiotracer is identified. Multifocal periarticular uptake at the wrists/hands, elbows, shoulder girdles, hips, knees, and ankles/feet, degenerative. Enthesopathic uptake at the greater trochanter of the left femur. Uptake throughout the cervical spine in a spondylitic configuration. Procedure Note Reuben Peck MD - 06/12/2025 [facility] [address] [place], [place] [address] EXAMINATION: NM BONE SCAN WHOLE BODY WO SPECT HISTORY: Reason for examination (per EHR order): Monoclonal gammopathy. Additional clinical information obtained from the EHR: 70 years Femalewith invasive ductal carcinoma status post lumpectomy and radiationtherapy with intermittent hormone therapy. Biopsy-proven metastaticdisease to the lumbar spine March 2024. RADIOPHARMACEUTICAL: 25.7 mCi Tc-99m MDP via intravenous injection at theright antecubital fossa. TECHNIQUE: Delayed whole-body scintigrams were obtained with additionalspot views. COMPARISON: Skeletal scintigraphy 03/09/2025. CT chest, abdomen, and pelvis06/11/2025. FINDINGS: Redemonstration of multifocal tracer uptake axial skeleton, withinvolvement of the left lateral eleventh rib, posterior left eighth rib,thoracolumbar spine, sacrum, and right ilium. Tiny sclerotic focithroughout the left ilium demonstrated on CT without scintigraphiccorrelate, likely due to insufficient size. No new focus of abnormal radiotracer is identified. Multifocal periarticular uptake at the wrists/hands, elbows, shouldergirdles, hips, knees, and ankles/feet, degenerative. Enthesopathic uptakeat the greater trochanter of the left femur. Uptake throughout thecervical spine in a spondylitic configuration. IMPRESSION: No scintigraphic evidence of new or worsening osteoblastic metastaticdisease. Similar scintigraphic appearance of multifocal involvement of theaxial skeleton. Ordered By: MECRED CLOUD Interpreted By: Reuben Peck MD, 06/12/2025 2:56 PM us Merced Cloud MD NUC MED Final Resul t * CT CHEST+ABD+PEL W CON (06/11/2025 10:20 AM CDT) Anatomical Region Laterality Modality Chest, Abdomen, Pelvis Computed Tomography 06/12/2025 12:0 4 PM CDT Impressions 06/16/2025 10:11 AM CDT IMPRESSION: 1. Multifocal osseous metastatic disease, overall similar in distribution and appearance to CT 03/20/2025. Please see separately dictated bone scintigraphy scheduled, 06/12/2025. 2. No new or enlarging lymphadenopathy within the chest, abdomen, or pelvis. 3. Stable bilateral pulmonary nodules, as above. Continued attention on follow- up is recommended. The attending radiologist has reviewed the image(s) and agrees with the content of this report. Ordered By: MERCED CLOUD Interpreted By: Uri Devlin DO, 06/12/2025 12:04 PM Narrative 06/16/2025 10:[address] [facility] [address] [place] [address] EXAMINATION: CT CHEST+ABD+PEL W CON EXAM TIME: 06/11/2025 9:59 AM INDICATION: Left breast invasive ductal carcinoma (ER positive, WA negative, HER-2/palak negative) status post lumpectomy, chemotherapy radiation, and sentinel node dissection and subsequent axillary lymph node dissection. 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 COMPARISON: CT chest abdomen and pelvis 03/20/2025, 12/19/2024. Bone scintigraphy 03/09/2025. PET/CT 02/13/2024. TECHNIQUE: Computed tomography of the chest abdomen, and pelvis was performed after administration of intravenous contrast, 80mL of IOPAMIDOL 76 % IV SOLN, without immediate complication, according to routine protocol. A dose lowering technique was used for this procedure, which may include, but is not limited to, dose reduction technique, automated exposure control, and/or the use of iterative reconstruction, in accordance with ALARA (As Low As Reasonably Achievable)/Image Gently principle. FINDINGS: CHEST: Lungs and Airways: There is an unchanged 10 x 8 mm nodule along the major fissure in the posterior right upper lobe (3/51). Redemonstration of subpleural nodularity along the left lower lobe (3/60), appearing slightly increased in size from the prior exam but not significantly different from 12/19/2024. Apparent change in size is possibly secondary to technique. There are a few additional sub-4 mm pulmonary nodules at the bilateral lung ramirez which have not significantly changed from the prior exam. For example in the anterior right upper lobe (3/54), the right middle lobe (3/66), and in the posterolateral left lower lobe (3/90). No pneumothorax or pleural effusion. No central airway obstruction. Cardiovascular: The heart is normal in size. No pericardial effusion. The thoracic aorta and main pulmonary artery are normal in caliber. The arch vessels are patent. Mediastinum/Lymphatics/Lower Neck: Unchanged mildly enlarged right hilar lymph node. No new or enlarging lymphadenopathy within the mediastinum. No axillary or internal mammary lymphadenopathy. Unchanged subcentimeter hypodense nodule in the left thyroid lobe for which no additional follow-up is required per size criteria. No lower cervical lymphadenopathy. The esophagus appears grossly normal. Soft Tissues: Visualized of the cutaneous tissues are without significant abnormality. ABDOMEN/PELVIS: Hepatobiliary: The liver is normal in size and contour. No hepatic mass. The gallbladder appears normal. Mild prominence of the common bile duct measuring up to 8 mm in diameter, unchanged. No intrahepatic biliary ductal dilatation. Pancreas: The pancreas is negative. No dilatation the main pancreatic duct. Spleen: The spleen is normal in size and appearance. Adrenal glands: No adrenal mass. Genitourinary: The kidneys enhance symmetrically. No obstructing renal calculus or hydronephrosis. No urinary bladder wall thickening. The uterus and ovaries are unremarkable. No adnexal mass. Gastrointestinal: The stomach appears grossly normal. The small bowel is normal in caliber. No CT evidence of small bowel obstruction. No focal colonic wall thickening. The appendix is normal. Peritoneal Cavity: No free intraperitoneal air. No free intraperitoneal fluid. Vascular: The abdominal aorta is normal in caliber. Mild scattered atherosclerotic calcifications of the abdominal aorta and its branches. The visceral arteries are patent. Lymphatics: No new or enlarging lymphadenopathy within the abdomen or pelvis. No inguinal lymphadenopathy. Musculoskeletal/Soft Tissues: Redemonstration of multifocal sclerotic lesions throughout the spine and also involving the right posterior 12th and left posterior eighth ribs. Multiple small sclerotic lesions are seen throughout the pelvis. The distribution is overall similar to 03/20/2025. Please see separately dictated bone scintigraphy. Procedure Note Ronald Tavares MD - 06/16/2025 [facility] [address] [place] [address] EXAMINATION: CT CHEST+ABD+PEL W CON EXAM TIME: 06/11/2025 9:59 AM INDICATION: Left breast invasive ductal carcinoma (ER positive, PRnegative, HER- 2/palak negative) status post lumpectomy, chemotherapyradiation, and sentinel node dissection and subsequent axillary lymph nodedissection. Osteoblastic metastasis with biopsy-proven recurrence of thelumbar spine 03/2024. COMPARISON: CT chest abdomen and pelvis 03/20/2025, 12/19/2024. Bonescintigraphy 03/09/2025. PET/CT 02/13/2024. TECHNIQUE: Computed tomography of the chest abdomen, and pelvis wasperformed after administration of intravenous contrast, 80mL of BINQAWAFQ80 % IV SOLN, without immediate complication, according to routineprotocol. A dose lowering technique was used for this procedure, which mayinclude, but is not limited to, dose reduction technique, automatedexposure control, and/or the use of iterative reconstruction, inaccordance with ALARA (As Low As Reasonably Achievable)/Image Gentlyprinciple. FINDINGS: CHEST: Lungs and Airways: There is an unchanged 10 x 8 mm nodule along the majorfissure in the posterior right upper lobe (3/51). Redemonstration ofsubpleural nodularity along the left lower lobe (3/60), appearing slightlyincreased in size from the prior exam but not significantly different from12/19/2024. Apparent change in size is possibly secondary to technique.There are a few additional sub-4 mm pulmonary nodules at the bilaterallung ramirez which have not significantly changed from the prior exam. Forexample in the anterior right upper lobe (3/54), the right middle lobe(3/66), and in the posterolateral left lower lobe (3/90). No pneumothoraxor pleural effusion. No central airway obstruction. Cardiovascular: The heart is normal in size. No pericardial effusion. Thethoracic aorta and main pulmonary artery are normal in caliber. The archvessels are patent. Mediastinum/Lymphatics/Lower Neck: Unchanged mildly enlarged right hilarlymph node. No new or enlarging lymphadenopathy within the mediastinum. Noaxillary or internal mammary lymphadenopathy. Unchanged subcentimeterhypodense nodule in the left thyroid lobe for which no additionalfollow-up is required per size criteria. No lower cervicallymphadenopathy. The esophagus appears grossly normal. Soft Tissues: Visualized of the cutaneous tissues are without significantabnormality. ABDOMEN/PELVIS: Hepatobiliary: The liver is normal in size and contour. No hepatic mass.The gallbladder appears normal. Mild prominence of the common bile ductmeasuring up to 8 mm in diameter, unchanged. No intrahepatic biliaryductal dilatation. Pancreas: The pancreas is negative. No dilatation the main pancreaticduct. Spleen: The spleen is normal in size and appearance. Adrenal glands: No adrenal mass. Genitourinary: The kidneys enhance symmetrically. No obstructing renalcalculus or hydronephrosis. No urinary bladder wall thickening. The uterusand ovaries are unremarkable. No adnexal mass. Gastrointestinal: The stomach appears grossly normal. The small bowel isnormal in caliber. No CT evidence of small bowel obstruction. No focalcolonic wall thickening. The appendix is normal. Peritoneal Cavity: No free intraperitoneal air. No free intraperitonealfluid. Vascular: The abdominal aorta is normal in caliber. Mild scatteredatherosclerotic calcifications of the abdominal aorta and its branches.The visceral arteries are patent. Lymphatics: No new or enlarging lymphadenopathy within the abdomen orpelvis. No inguinal lymphadenopathy. Musculoskeletal/Soft Tissues: Redemonstration of multifocal scleroticlesions throughout the spine and also involving the right posterior 12thand left posterior eighth ribs. Multiple small sclerotic lesions are seenthroughout the pelvis. The distribution is overall similar to 03/20/2025.Please see separately dictated bone scintigraphy. IMPRESSION: 1. Multifocal osseous metastatic disease, overall similar in distributionand appearance to CT 03/20/2025. Please see separately dictated bonescintigraphy scheduled, 06/12/2025. 2. No new or enlarging lymphadenopathy within the chest, abdomen, orpelvis. 3. Stable bilateral pulmonary nodules, as above. Continued attention onfollow-up is recommended. The attending radiologist has reviewed the image(s) and agrees with thecontent of this report. Ordered By: MERCED CLOUD Interpreted By: Uri Devlin DO, 06/12/2025 12:04 PM us Merced Cloud MD CT Final Resul t * (ABNORMAL) COMPREHENSIVE METABOLIC PANEL (03/26/2025 12:29 PM CDT) [facility] GLUCOSE 93 70 - 99 MG/DL 03/26/2025 2:50 PM CDT [facility] BUN 7 7 - 18 MG/DL 03/26/2025 2:50 PM CDT [facility] CREATININE S/P/B 0.75 0.55 - 1.02 MG/DL 03/26/2025 2:50 PM CDT [facility] SODIUM S/P/B 132(L) 136 - 145 MMOL/L 03/26/2025 2:50 PM CDT [facility] POTASSIUM S/P/B 4.2 3.5 - 5.1 MMOL/L 03/26/2025 2:50 PM CDT [facility] CHLORIDE S/P/B 96(L) 100 - 108 MMOL/L 03/26/2025 2:50 PM CDT [facility] CO2 29.4 21 - 32 MMOL/L 03/26/2025 2:50 PM CDT [facility] CALCIUM S/P/B 9.9 8.5 - 10.1 MG/DL 03/26/2025 2:50 PM T [facility] BILIRUBIN TOTAL S/P/B 0.5 0.2 - 1.2 MG/DL 03/26/2025 2:50 PM CDT [facility] TOTAL PROTEIN S/P/B 6.9 6.4 - 8.2 G/DL 03/26/2025 2:50 PM T [facility] ALBUMIN S/P/B 4.3 3.4 - 5.0 G/DL 03/26/2025 2:50 PM CDT [facility] AST 20 15 - 37 U/L 03/26/2025 2:50 PM CDT [facility] ALT 21 14 - 55 U/L 03/26/2025 2:50 PM CDT [facility] ALKALINE PHOSPHATASE S/P/B 35(L) 50 - 136 U/L 03/26/2025 2:50 PM CDT [facility] ANION GAP 6.6 5 - 15 MMOL/L 03/26/2025 2:50 PM CDT [facility] BUN CREATININE RATIO 9.3 6 - 26 03/26/2025 2:50 PM CDT [facility] A/G RATIO 1.7 1.0 - 2.0 RATIO 03/26/2025 2:50 PM CDT [facility] GFR ESTIMATE 87(L) >90 ML/MIN/1.7 3 M2 03/26/2025 2:50 PM CDT [facility] Comment: NOTE: eGFR is not calculated for patients <18 years of age. This is an estimated GFR calculation using the new CKD EPI creatinine equation without race and so does not require a correction factor for race. This estimated GFR should not be used for calculating drug doses. 03/26/2025 12:2 9 PM CDT Merced Cloud MD LABORATORY Final Resul t [facility] [address] [place] [address], * LDH, LACTATE DEHYDROGENASE (03/26/2025 12:29 PM CDT) LDH 180 84 - 246 UNITS/L 03/26/2025 2:50 PM CDT [facility] 03/26/2025 12:2 9 PM CDT us Merced Cloud MD LABORATORY Final Resul t [facility] [address] [place] [address], [place] [phone] * (ABNORMAL) CBC W/DIFF AUTOMATED (03/26/2025 12:29 PM CDT) WBC 3.06(L) 4.4 - 11.0 x10'3/uL 03/26/2025 2:36 PM CDT [facility] RBC 3.21(L) 4.50 - 5.10 x10'6/uL 03/26/2025 2:36 PM CDT [facility] HGB 12.1(L) 12.3 - 15.3 G/DL 03/26/2025 2:36 PM CDT [facility] HCT 35.4(L) 35.9 - 44.6 % 03/26/2025 2:36 PM CDT [facility] MCV 110.3(H) 80.0 - 96.0 FL 03/26/2025 2:36 PM CDT [facility] MCH 37.7(H) 25.3 - 30.9 PG 03/26/2025 2:36 PM CDT [facility] MCHC 34.2(H) 31.0 - 34.1 G/DL 03/26/2025 2:36 PM CDT [facility] RDW 12.5 12.4 - 15.1 % 03/26/2025 2:36 PM CDT [facility] PLT 288 151 - 353 x10'3/uL 03/26/2025 2:36 PM CDT [facility] MPV 9.4(L) 9.6 - 12.0 FL 03/26/2025 2:36 PM CDT [facility] RBC MORPHOLOGY NORMAL 03/26/2025 2:36 PM CDT [facility] PLT MORPH. NORMAL 03/26/2025 2:36 PM CDT [facility] WBC MORPHOLOGY NORMAL 03/26/2025 2:36 PM CDT [facility] LYMPHOCYTES % 40.2 15.8 - 45.0 % 03/26/2025 2:36 PM CDT [facility] NEUTROPHILS % 48.6 42.1 - 71.9 % 03/26/2025 2:36 PM CDT [facility] MONOCYTES % 7.2 5.7 - 12.5 % 03/26/2025 2:36 PM CDT [facility] EOSINOPHILS 1.0 0.0 - 5.6 % 03/26/2025 2:36 PM CDT [facility] BASOPHILS 2.0(H) 0.0 - 1.3 % 03/26/2025 2:36 PM CDT [facility] ABS. NEUTROPHILS 1.49 1.40 - 6.00 x10'3/uL 03/26/2025 2:36 PM CDT [facility] IMMATURE GRANS % 1.0(H) 0.0 - 0.5 % 03/26/2025 2:36 PM CDT [facility] ABS. LYMPHOCYTES 1.23 0.80 - 4.70 x10'3/uL 03/26/2025 2:36 PM CDT [facility] 03/26/2025 12:2 9 PM CDT us Merced Cloud MD LABORATORY Final Resul t [facility] [address] [place] [address], * HEPATITIS C ANTIBODY (08/29/2019 11:46 AM CDT) HEPATITIS C AB NON-REACTI VE NON-REACTI VE 08/29/2019 2:59 PM CDT [facility] 08/29/2019 11:4 6 AM CDT Richard Hubbard MD LABORATORY Final Result [facility] [address] [place] [address], from Last 3 Months or Most Recently Relevant to Health Maintenance Insurance MEDICARE AETNA Care Teams Forensic Photographer Relationship Specialty Start Date End Date Roman Dempsey MD [address] [place] [address] PCP - General INTERNAL MEDICINE 06/06/19
--- OUTSIDE RECORDS SUMMARY | 2025-06-22 12:14 | XMS_ITS | Clinical Summary ---
Author Organization [facility] [address] Address [address] [place] [address] Care Team Providers Care Patient Assessment Coordinator Name Role Phone Roman Dempsey MD Primary [...] 4-6 HOURS NEEDED FOR SHORTNESS OF BREATH. Active Active Problems Problem Noted Date Diagnosed Date Visit for wound check 03/08/2023 Status post placement of implantable loop record er 03/01/2023 Overview (03/01/2023): Biomonitor IIIm Loop Recorder. Dx; PAF. DOI 03/01/2023-[place]. [employer]. Biotronik remote home monitoring. Surgical History Surgery Date Site/Laterality Comments BREAST SURGERY Lumpectomy Sep 2013 SECTION Sep 18, 1985 TUBAL LIGATION 1991 Medical History Medical History Date Comments Arthritis Osteoporosis Cancer (HCC) Aug 2013 Infectious viral hepatitis 1965 Family History Medical History Relation Name Comments Alcohol abuse Brother Alex Alzheimer's disease Father Sergio Diabetes Father Sergio Hypertension Father Sergio Arthritis Maternal Grandfather Fred Miscarriages / Stillbirths Maternal Grandmother Susana tinajero Alcohol abuse Mother Marcia Arthritis Mother Marcia [...] 65+ (1 of 2 - PCV) 1976 Zoster Vaccine (1 of 2) 11/03/2014 09/08/2014 Osteoporosis Screening-Bone Density Scan 07/13/2019 07/13/2017, 07/02/2015 Covid-19 Vaccine (3 - Pfizer risk series) 02/21/2021 01/24/2021, 01/03/2021 Well Visit 65+ 2022 Influenza Vaccine (#1) 2025 5, 08/25/2014, 05/05/2014, Additional history exists DTaP/Tdap/Td Vaccine (2 - Td or Tdap) 05/11/2027 05/11/2017 Insurance MEDICARE AET[employer] SENIOR SUPPLEMENT MEDICARE AET[employer] SENIOR SUPPLEMENT Care Teams Patient Assessment Coordinator Relationship Specialty Start Date End Date Roman Dempsey MD [address] [place] [address] PCP - General Emergency Medicine 12/12/19
--- OUTSIDE RECORDS SUMMARY | 2025-06-22 12:14 | XMS_ITS | Encounter Summary ---
Author Organization [facility] Address [address] [place] [address] Phone Care Team Providers Care History Instructor Name Role Phone Roman Dempsey MD Primary Care Provider David Cloud MD Unavailable [phone] Carol Galindo RN Unavailable Unavailab Yana Leary RN Unavailable Unavailable Yana Jonas RN Unavailable Unavailable Joceline Phillip RN Unavailable Unavailable Encounter Details Date Type Department Care Team (Late st Contact Info) Description 03/25/2024 Telephone [facility] [address] [address] David Cloud MD [address] [place] [address] Social History Tobacco Use Types [...] AM CDT Office Visit [facility] [id number] [address] David Cloud MD [address] [place] [phone] 07/16/2025 12:00 PM CDT Clinical Support [facility] [address] [address] Nurse, [facility] 07/23/2025 11:30 AM CDT Clinical Support [facility] [address] [address] documented as of this encounter Visit Diagnoses Not on filedocumented in this encounter Additional Health Concerns Assessment Noted Time PHQ-9 Depression Total Score: 1 06/23/20 21 2:44 PM CDT documented as of this encounter Care Teams History Instructor Relationship Specialty Start Date End Date Roman Dempsey MD [address] [facility] [address] [place] [address] PCP - General Internal Medicine 10/07/15 David Cloud MD [address] [place] [address] Consulting Physician Oncology 04/04/24 Carol Galindo RN [place] Oncology Nurse Navigator Oncology 06/02/24 07/27/24 Yana Jonas, RN [place] Registered Nurse 06/02/24 06/02/24 Yana Jonas, RN [place] Oncology Nurse Navigator Oncology 07/02/24 Jocelien Phillip, RN [place] Oncology Nurse Navigator Oncology 09/18/24 documented as of this encounter
--- OUTSIDE RECORDS SUMMARY | 2025-06-22 12:14 | XMS_ITS ---
Author Organization [facility] Address [address] [place] [address] Phone Care Team Providers Care Batch Unloader Name Role Phone Roman Dempsey MD Primary Care Provider [phone] David Cloud MD Unavailable [phone] Yana Jonas RN Unavailable Unavailable Joceline Phillip [...] Medications Current Day (Day 1 , Cycle 15 - Planned for 06/17/2025) Next Day (Day 1, Cycle 16 - Planned for 09/02/2025) No medications scheduled. No medications schedul ed. [...]
--- OUTSIDE RECORDS SUMMARY | 2025-06-22 12:14 | XMS_ITS | Encounter Summary ---
Author Organization [facility] Address [address] [place] [address] Phone Care Team Providers Care Debt Collection Specialist Name Role Phone Roman Dempsey MD Primary Care Provider [phone] David Cloud MD Unavailable [phone] Carol Galindo RN Unavailable Unavailab Yana Leary RN Unavailable Unavailable Yana Jonas RN Unavailable Unavailable Joceline Phillip RN Unavailable Unavailable Encounter Details Date Type Department Care Team (Late st Contact Info) Description 03/28/2024 Telephone [facility] [address] [place] [address] David Cloud MD [address] [place] [address] Social History Tobacco Use Types [...] you like to schedule pt 04/17 in [place]? Please advice thanks documented in this encounter Plan of Treatment Upcoming Encounters Date Type Department Care Team (Late st Contact Info) Description 07/16/2025 11:45 AM CDT Office Visit [facility] [address] [address] David Cloud MD [address] [place] [address] 07/16/2025 12:00 PM CDT Clinical Support [facility] [address] [address] Nurse, [facility] 07/23/2025 11:30 AM CDT Clinical Support [facility] [address] [address] documented as of this encounter Visit Diagnoses Not on filedocumented in this encounter Additional Health Concerns Assessment Noted Time PHQ-9 Depression Total Score: 1 06/23/20 21 2:44 PM CDT documented as of this encounter Care Teams Debt Collection Specialist Relationship Specialty Start Date End Date Roman Dempsey MD [address] [facility] [address] [place] [address] PCP - General Internal Medicine 10/07/15 David Cloud MD [address] [place] [address] Consulting Physician Oncology 04/04/24 Carol Galindo RN [place] Oncology Nurse Navigator Oncology 06/02/24 07/27/24 Yana Jonas RN [place] Registered Nurse 06/02/24 06/02/24 Yana Jonas RN [place] Nurse Navigator Oncology 07/02/24 Joceline Phillip, RN [place] [facility] Nurse Navigator Oncology 09/18/24 documented as of this encounter
[2025-06-22 12:33] LABS: Alanine Aminotransferase 17 U/L (6-35); Albumin Level 4.1 g/dL (3.5-5.1); Alkaline Phosphatase 39 U/L (38-126); Anion Gap 4 mmol/L (4-12); Aspartate Amino Transferase 32 U/L (14-36); Bilirubin,Total 0.5 mg/dL (0.2-1.3); Blood Urea Nitrogen 6 mg/dL (7-17); Calcium 9.2 mg/dL (8.4-10.2); Carbon Dioxide 29 mmol/L (22-30); Chloride 96 mmol/L (98-107); Cholesterol 226 mg/dL (0-200); Estimated Glomerular Filt Rate > 60; Glucose 97 mg/dL (65-110); HDL Direct 70 mg/dL; Potassium 4.4 mmol/L (3.4-5.0); Sodium 129 mmol/L (137-145); Total Protein 6.7 g/dL (6.3-8.2); Triglycerides 58 mg/dL (<150)
== END 2025-06-22 11:41 | disposition home or self-care (01) ==
PROVIDERS: PCP Emergency Medicine; Visit Provider Emergency Medicine
DX: E78.5 Hyperlipidemia, unspecified (principal); E55.9 Vitamin D deficiency, unspecified
CPT/HCPCS: 36415; 80053; 80061; 82306

== ENCOUNTER 2025-09-17 12:37 | Emergency (ER) | payer MEDICARE, SELFPAY ==
[2025-09-17 12:48] VITALS: BP 132/88; PULSE 57; RESP 16; TEMP 36.2; O2SAT 100
--- NOTE | 2025-09-17 13:23 | ED.EXTPRO ---
HPI - Extremity Problem General Chief complaint: Extremity Problem,Nontraumatic Stated complaint: Infection R Leg Time Seen by Provider: 09/17/25 13:16 Source: patient, RN notes reviewed and old records reviewed Mode of arrival: ambulatory Limitations: no limitations History of Present Illness HPI Narrative: 70-year-old female patient with history of metastatic breast cancer presents today complaining redness the right lower leg that she noticed last night that has been worsening since onset. States she is on medication currently for her breast cancer that decreases or immune system. The affected area is reddened, painful, and has started itch. Denies any injury or trauma to the leg. No OTC treatment prior to arrival. Related Data Home Medications ?Medication ?Instructions ?Recorded ?Confirmed ?Last Taken ?Type apixaban 5 mg tablet (Eliquis) 5 mg PO BID 12/15/22 09/17/25 02/26/23 07:00 History clobetasol 0.05 % topical ointment 1 applic topical QAM AND QPM 12/14/23 09/17/25 Unknown History fulvestrant 250 mg/5 mL 500 mg IM MONTHLY 06/20/24 09/17/25 Unknown History intramuscular syringe zoledronic acid 4 mg/5 mL 4 mg IV .COMPLEX 12/26/24 03/17/25 Unknown History intravenous solution palbociclib 100 mg tablet (Ibrance) 100 mg PO DAILY 03/17/25 09/17/25 Unknown History albuterol sulfate 90 mcg/actuation 1 puff inhalation Q4H PRN 07/03/25 09/17/25 Unknown History aerosol inhaler (Ventolin HFA) shortness of breath or wheezing estradiol 0.01% (0.1 mg/gram) 1 appful vaginal DAILY 07/03/25 09/17/25 Unknown History vaginal cream tacrolimus 0.03 % topical ointment 1 applic topical BID 07/03/25 09/17/25 Unknown History Allergies Allergy/AdvReac Type Severity Reaction Status Date / Time clindamycin AdvReac Mild GI upset Verified 09/17/25 12:50 PMFSH Past Medical History Medical History (Reviewed 09/17/25 @ 13:25 by Natalee Treadwell, [employer] CHAIR, DIETARY MANAGER) Dyspnea on exertion Atypical chest pain Skin lesions Contact dermatitis Poison edgar dermatitis Dysphagia Acute sinusitis Multiple pulmonary nodules determined by computed tomography of lung Osteoarthritis of finger of left hand Acute maxillary sinusitis Joint pain in fingers of left hand History of breast cancer Cellulitis of right lower extremity Acute pain of left hip Acute left-sided low back pain without sciatica Atrial fibrillation Osteoporosis COPD (chronic obstructive pulmonary disease) Cancer Rheumatoid arthritis Monoclonal gammopathies Family History Family History Mother Family history of heart disease in male family member before age 55, Onset Age: 79 Patient's mother is Father Family history of heart disease in male family member before age 55, Onset Age: 81 Patient's father is Sibling Family history of lung cancer Other Alcoholism Anxiety Depression Diabetes mellitus Hypertension Social History Social History Smoking status: Former smoker Tobacco type: cigarettes Second hand tobacco smoke exposure: No Alcohol intake: current Alcohol use details: occasional beer Substance use: never Substance use type: does not use Do You Feel Safe in your Home?: Yes Lack of Transportation: No Lack of Food: Never True Current Housing: I Have Housing Concerned About Future Housing: No Difficulty Paying Gas/Electric Bills: No Difficulty Paying for Meds: No Currently Unemployed: No Education: High School Diploma/GED Difficulty w/ Childcare or Family Care: No Living arrangements: with family Occupation/Education: retired Gender identity (if verbalized by the patient): Female Spiritual care concerns: No Agree to blood products: Yes Comments At time of signature, I have reviewed and agree with nursing past medical, surgical, social and family history unless otherwise noted. Please see nursing chart for further information. There is no relevant family history pertinent to the presenting complaint Exam Narrative: GENERAL: Well-appearing, well-nourished, and in no acute distress. HEAD: Normocephalic, atraumatic. EYES: EOMI. No redness or drainage. Conjunctivae normal. ENT: Mucous membranes pink and moist. NECK: Normal AROM. CHEST: No respiratory distress. EXTREMITIES: Area of erythema, tenderness, and increased warmth to the right conway measures approximately 5 x 5 cm without induration, fluctuance. There are a few faint, superficial scabs within this area. SKIN: Warm, dry, no rash. Capillary refill normal. Normal skin turgor. NEURO: No focal deficits. Alert and oriented x3. Gait steady. PSYCH: Normal affect. No signs of depression or anxiety. Course Course Level of Care: Express Care Visit Vital Signs Vital signs: Vital Signs Temperature 97.2 F L 09/17/25 12:48 Pulse Rate 57 L 09/17/25 12:48 Respiratory Rate 16 09/17/25 12:48 Blood Pressure 132/88 09/17/25 12:48 Pulse Oximetry 100 09/17/25 12:48 Temperature 97.2 F L 09/17/25 12:48 Pulse Rate 57 L 09/17/25 12:48 Respiratory Rate 16 09/17/25 12:48 Blood Pressure 132/88 09/17/25 12:48 Pulse Oximetry 100 09/17/25 12:48 Reviewed MDM - Extremity (Nontraumatic) MDM Narrative Medical decision making narrative: 70-year-old female patient with history of metastatic breast cancer presents today complaining redness the right lower leg that she noticed last night that has been worsening since onset. States she is on medication currently for her breast cancer that decreases or immune system. The affected area is reddened, painful, and has started itch. Denies any injury or trauma to the leg. No OTC treatment prior to arrival. Upon exam, Area of erythema, tenderness, and increased warmth to the right conway measures approximately 5 x 5 cm without induration, fluctuance. There are a few faint, superficial scabs within this area. Patient will be treated with Keflex for cellulitis. Recommend PCP follow-up in 3 days if symptoms persist. Patient agrees with plan. Vital signs stable. Anticipatory guidance given. Differential Diagnosis Differential diagnosis: Likely herpes zoster, cellulitis and other (Abscess) Critical Care Time Critical Care Time Critical Care Time: No Discharge Plan Discharge Clinical Impression: Cellulitis of leg, right Patient Disposition: Home Condition: Stable Instructions: Antibiotic Form, Cellulitis (ED) Additional Instructions: Please take the Keflex as prescribed until gone. If symptoms do not improve within 48 hours, please follow-up with your PCP or go to the emergency room for further evaluation. Patient Language: E[place] Prescriptions: New cephalexin 500 mg capsule 500 mg PO Q6H 7 Days Qty: 28 0RF No Action clobetasol 0.05 % ointment 1 applic topical QAM AND QPM zoledronic acid 4 mg/5 mL solution 4 mg IV .COMPLEX Rx Instructions: 4 mg intravenously once quarterly; administer over at least 15 mins Ibrance 100 mg tablet 100 mg PO DAILY Rx Instructions: administer on days 1 through 21 of a 28-day treatment cycle tacrolimus 0.03 % ointment 1 applic topical BID estradiol 0.01 % (0.1 mg/gram) cream 1 appful vaginal DAILY Rx Instructions: for 14 days albuterol sulfate [Ventolin HFA] 90 mcg/actuation HFA aerosol inhaler 1 puff inhalation Q4H PRN (Reason: shortness of breath or wheezing) Eliquis 5 mg tablet 5 mg PO BID fulvestrant 250 mg/5 mL syringe 500 mg IM MONTHLY Rx Instructions: may divide dose into 2 equally divided injections; one into each buttock metoprolol tartrate 25 mg tablet 12.5 mg PO BID Qty: 30 0RF Follow-up/Referrals: Roman Dempsey MD [Primary Care Provider, Internal Medicine] Time of Disposition: 13:28
== END 2025-09-17 13:33 | disposition home or self-care (01) ==
PROVIDERS: Emergency Provider Nurse Practitioner; PCP Emergency Medicine
DX: L03.115 Cellulitis of right lower limb (principal); C50.919 Malignant neoplasm of unspecified site of unspecified female breast; C79.9 Secondary malignant neoplasm of unspecified site; I48.91 Unspecified atrial fibrillation; J44.9 Chronic obstructive pulmonary disease, unspecified; M81.0 Age-related osteoporosis without current pathological fracture; M06.9 Rheumatoid arthritis, unspecified; Z79.01 Long term (current) use of anticoagulants; Z87.891 Personal history of nicotine dependence
CPT/HCPCS: 99213; G0463